=== PATIENT | male | born 1945 | race Caucasian/White ===

== ENCOUNTER → 2016-07-10 | Day surgery (SDC) | payer OTHER ==
[2016-07-02 08:49] VITALS: Ht 172.7 cm; Wt 86.4 kg
[~2016-07-10] VITALS: Ht 172.7 cm; Wt 86.4 kg
[~2016-07-10] MED LIST: ACET-1256 PO; ASPEC81 PO; ATOR-22 PO; ATROPINE SULFATE 0.1 MG/ML 5ML SYR IV PRN; BYS10 PO; CHOL1000 PO; CLC100 PO; COEN100C7 PO; CYAN10005 PO; DABI150C PO; DIPH25CA37 PO; EpHEDrine SULFATE INJ 50 MG/ML AMP IV PRN; EpHEDrine SULFATE INJ 50 MG/ML AMP ONE; FENTANYL CITRATE INJ 50 MCG/1 ML 2 ML VIAL ONE; FRS/40 PO; LIDOCAINE HCL 2% 2 ML VIAL (20MG/ML) ONE; MAGN1TAB15 PO; METF500T PO; MIDAZOLAM HCL 1 MG/ML 2ML VIAL ONE; MOME50SP5; MULT-506 PO; NTRGSL/4 UT; NXM/40 PO; OMEG10007 PO; ONDANSETRON INJ 2 MG/ML 2 ML VIAL ONE; POTA-335 PO; PROPOFOL IV EMULSION 10 MG/ML 20 ML VIAL IV ONE; SODIUM CHLORIDE 0.9% 500ML 500 ML IV ONE; SODIUM CHLORIDE 0.9% INJ 10 ML VIAL ONE; TELM80TA4 PO
--- NOTE | 2016-07-10 08:55 | Endo History and Physical ---
History & Physical Date of Service: Jul 10, 2016. Chief Complaint: rectal bleeding Referring Physician: Dr. Luis Felipe Crowley History of Present Illness 71 yo CM who presents for Colonoscopy secondary to rectal bleeding. Past Surgical History Hx Cardiac Surgery: Yes (HEART CATH X 2 (TOTAL 3 STENTS)) Hx Internal Defibrillator: No Hx Pacemaker: No Hx Abdominal Surgery: Yes (RT/LEFT INGUINAL HERNIA ) Hx of Implantable Prosthesis: No Hx Post-Op Nausea and Vomiting: No Hx Cancer Surgery: No Hx Thoracic Surgery: No Hx Orthopedic: Yes (RT KATY) Hx Urinary Tract Surgery: No Family History None Social History Smoking Status: Former Smoker Hx Substance Use: No Hx Alcohol Use: No Allergies Coded Allergies: Iodinated Contrast Media (Verified Allergy, Unknown, RASH, 07/02/16) Simvastatin (Verified Allergy, Unknown, rash, 07/02/16) Spironolactone (Verified Allergy, Unknown, RASH, 07/02/16) Niacin (Verified Adverse Reaction, Unknown, red flush, 07/02/16) Current Medications Reported Home Medications Medications Dose Route/Sig Max Daily Dose Days Date Category Slow Magnesium Chloride/ 70-117 mg (Magnesium Chloride-Calcium Car) 1 Tab Tab 1 Tab PO QAM 07/02/16 Reported Coq10 (Coenzyme Q10 (Ubidecarenone)) 100 Mg Cap 1 Cap PO QAM 07/02/16 Reported Pradaxa (Dabigatran Etexilate Mesylate) 150 Mg Cap 150 Mg PO BID 05/27/13 Reported Benadryl (Diphenhydramine Hcl) 25 Mg Cap 50 Mg PO BID 10/06/12 Reported Glucophage (Metformin Hcl) 500 Mg Tab 500 Mg PO BID 09/29/12 Reported Vitamin D3 (Cholecalciferol) 1,000 Unit Tab 1 Tab PO QAM 09/29/12 Reported Tylenol (Acetaminophen) 500 Mg Tab 500 Mg PO PRN 09/29/12 Reported Micro-K Ext Rel (Potassium Chloride) 20 Meq Cap 20 Meq PO BID 09/15/10 Reported Lasix (Furosemide) 40 Mg Tab 40 Mg PO QAM 09/15/10 Reported Multivitamin (Multivitamins) Tab 1 Tab PO QAM 09/15/10 Reported Nasonex (Mometasone Furoate) [place] 2 Sprays NA QAM 09/15/10 Reported Lipitor (Atorvastatin Calcium) 20 Mg Tab 20 Mg PO 3XWK 09/15/10 Reported Nitrostat (Nitroglycerin) 0.4 Mg Tab 0.4 Mg UT PRN 09/15/10 Reported Colace * (Docusate Sodium) 100 Mg Cap 100 Mg PO BID 09/15/10 Reported [place]-3 (Fish Oil) 1 Ea Cap 1 Cap PO BID 09/15/10 Reported Vitamin B-12 (Cyanocobalamin) 1,000 Mcg Tab 1,000 Mcg PO QAM 09/15/10 Reported Nexium (Esomeprazole Magnesium) 40 Mg Capcr 40 Mg PO QAM 09/15/10 Reported Micardis Hct 80MG/12.5MG (Telmisartan/Hydrochlorothiazide) Tab 1 Tab PO QAM 09/15/10 Reported Bystolic * (Nebivolol) 10 Mg Tab 10 Mg PO QAM 09/15/10 Reported Ecotrin Or Generic * (Aspirin) 81 Mg Ectab 81 Mg PO QAM 09/15/10 Reported Vital Signs Weight (Kilograms): 86.36 Height (Feet): 5 Height (Inches): 8 Date Time Temp Pulse Resp B/P Pulse Ox O2 Delivery O2 Flow Rate FiO2 07/10/16 08:16 37.1 64 20 118/52 98 Room Air Physical Exam General Appearance: WD/WN, no apparent distress Respiratory/Chest: Auscultation: breath sounds normal Cardiovascular: Heart Auscultation: RRR Abdomen: Bowel Sounds: normal Inspection & Palpation: soft, non-distended, no tenderness, guarding & rebound Assessment and Plan Assessment: 71 yo CM who presents for Colonoscopy secondary to rectal bleeding. Plan: Proceed with colonoscopy.
--- NOTE | 2016-07-10 09:15 | Discharge Instructions ---
Endoscopy Patient Instructions Date / Procedure(s) Performed Jul 10, 2016. Colonoscopy Allergy Information Coded Allergies: Iodinated Contrast Media (Verified Allergy, Unknown, RASH, 07/02/16) Simvastatin (Verified Allergy, Unknown, rash, 07/02/16) Spironolactone (Verified Allergy, Unknown, RASH, 07/02/16) Niacin (Verified Adverse Reaction, Unknown, red flush, 07/02/16) Discharge Date / Findings Jul 10, 2016. Colon lipoma Diverticulosis Internal hemorrhoids Medication Instructions Stopped Medication(s): stopped Metformin on 07/08,took ASA and Pradaxa 07/09 OK to resume all medications today as prescribed. Reported Home Medications Medications Dose Route/Sig Max Daily Dose Days Date Category Slow Magnesium Chloride/ 70-117 mg (Magnesium Chloride-Calcium Car) 1 Tab Tab 1 Tab PO QAM 07/02/16 Reported Coq10 (Coenzyme Q10 (Ubidecarenone)) 100 Mg Cap 1 Cap PO QAM 07/02/16 Reported Pradaxa (Dabigatran Etexilate Mesylate) 150 Mg Cap 150 Mg PO BID 05/27/13 Reported Benadryl (Diphenhydramine Hcl) 25 Mg Cap 50 Mg PO BID 10/06/12 Reported Glucophage (Metformin Hcl) 500 Mg Tab 500 Mg PO BID 09/29/12 Reported Vitamin D3 (Cholecalciferol) 1,000 Unit Tab 1 Tab PO QAM 09/29/12 Reported Tylenol (Acetaminophen) 500 Mg Tab 500 Mg PO PRN 09/29/12 Reported Micro-K Ext Rel (Potassium Chloride) 20 Meq Cap 20 Meq PO BID 09/15/10 Reported Lasix (Furosemide) 40 Mg Tab 40 Mg PO QAM 09/15/10 Reported Multivitamin (Multivitamins) Tab 1 Tab PO QAM 09/15/10 Reported Nasonex (Mometasone Furoate) [place] 2 Sprays NA QAM 09/15/10 Reported Lipitor (Atorvastatin Calcium) 20 Mg Tab 20 Mg PO 3XWK 09/15/10 Reported Nitrostat (Nitroglycerin) 0.4 Mg Tab 0.4 Mg UT PRN 09/15/10 Reported Colace * (Docusate Sodium) 100 Mg Cap 100 Mg PO BID 09/15/10 Reported [place]-3 (Fish Oil) 1 Ea Cap 1 Cap PO BID 09/15/10 Reported Vitamin B-12 (Cyanocobalamin) 1,000 Mcg Tab 1,000 Mcg PO QAM 09/15/10 Reported Nexium (Esomeprazole Magnesium) 40 Mg Capcr 40 Mg PO QAM 09/15/10 Reported Micardis Hct 80MG/12.5MG (Telmisartan/Hydrochlorothiazide) Tab 1 Tab PO QAM 09/15/10 Reported Bystolic * (Nebivolol) 10 Mg Tab 10 Mg PO QAM 09/15/10 Reported Ecotrin Or Generic * (Aspirin) 81 Mg Ectab 81 Mg PO QAM 09/15/10 Reported Provider Instructions Activity Restrictions - No exercising or heavy lifting for 24 hours. - Do not drink alcohol the day of the procedure. - Do not drive a car or operate machinery until the day after the procedure. - Do not make any important decisions or sign important papers in 24 hours after the procedure. Following Day: - Return to full activity which may include returning to work/school. Diet Start your diet with liquids and light foods (jello, soup, juice, toast). Then eat your usual diet if not nauseated. Treatment For Common After Affects For mild abdominal pain, bloating, or excessive gas: - Rest - Eat lightly - Lie on right side Follow-Up Information Follow-up with Dr. Luis Felipe Crowley as scheduled Anesthesia Information What You Should Know You have had a procedure that required some medicine to reduce anxiety and discomfort. This treatment is called moderate sedation. After receiving the treatment, you may be sleepy, but you will be able to breathe on your own. The effects of the treatment may last for several hours. Follow these instructions along with Activity/Diet recommendations noted above: * Do NOT do anything where dizziness or clumsiness would be dangerous. * Rest quietly at home today, then you can be up and about tomorrow. * Have a responsible person stay with you the rest of today. * You may have had an I.V. today. If so, you may take the dressing off later today. Recommendations Call your doctor if: * Trouble breathing * Continuous vomiting for more than 24 hours * Temperature above 101 degrees * Severe abdominal pain or bloating * Pain not relieved by pain medicine ordered * There is increased drainage or redness from any incision * A large amount of rectal bleeding greater than 2-3 tablespoons. (If you had a polyp/s removed or have hemorrhoids, a small amount of blood - from the rectum is to be expected.) * You have any unanswered questions or concerns. IN THE EVENT OF A SERIOUS EMERGENCY, GO TO THE NEAREST EMERGENCY ROOM Your discharge instructions were prepared by provider Chivo Vaughn. Patient Instructions Signature Page Rigo Wells Patient (or Guardian) Signature/Date: I have read and understand the instructions given to me by my caregivers. Caregiver/RN/Doctor Signature/Date: The above-named patient and/or guardian has received patient instructions on this date. + Original Patient Signature Page (only) stays with chart. Please make copy for patient.
--- NOTE | 2016-07-10 09:22 | GI REPORT ---
Procedure Date: 07/10/2016 8:15 AM Procedure: Colonoscopy Indications: Rectal bleeding Medicines: Monitored Anesthesia Care Complications: No immediate complications. Estimated Blood Loss: Estimated blood loss: none. Procedure: Pre-Anesthesia Assessment: - Prior to the procedure, a History and Physical was performed, and patient medications and allergies were reviewed. The patient's tolerance of previous anesthesia was also reviewed. The risks and benefits of the procedure and the sedation options and risks were discussed with the patient. All questions were answered, and informed consent was obtained. Prior Anticoagulants: The patient last took aspirin 1 day and Pradaxa (dabigatran) 1 day prior to the procedure. ASA Grade Assessment: IV - A patient with severe systemic disease that is a constant threat to life. After reviewing the risks and benefits, the patient was deemed in satisfactory condition to undergo the procedure. After I obtained informed consent, the scope was passed under direct vision. Throughout the procedure, the patient's blood pressure, pulse, and oxygen saturations were monitored continuously. The scope was introduced through the anus and advanced to the cecum, identified by appendiceal orifice and ileocecal valve. The colonoscopy was performed without difficulty. The patient tolerated the procedure well. The quality of the bowel preparation was good. The ileocecal valve, appendiceal orifice, and rectum were photographed. Findings: There was a small lipoma, 15 mm in diameter, in the transverse colon. Multiple small-mouthed diverticula were found in the sigmoid colon. Non-bleeding internal hemorrhoids were found during retroflexion. The hemorrhoids were small. Impression: - Small lipoma in the transverse colon. - Diverticulosis in the sigmoid colon. - Non-bleeding internal hemorrhoids. - No specimens collected. Recommendation: - Resume previous diet. - Continue present medications. - No repeat colonoscopy due to age and the absence of advanced adenomas. - Return to primary care physician as previously scheduled. Chivo Vaughn DO 07/10/2016 9:21:55 AM This report has been signed electronically. Note Initiated On: 07/10/2016 8:15 AM
--- NOTE | 2016-07-10 09:26 | Anesthesiology Progress Note ---
Anesthesia Post Op Note Date & Time Jul 10, 2016 at 09:25 Vital Signs Pain Intensity: 0 Vital Signs Past 12 Hours Date Time Temp Pulse Resp B/P Pulse Ox O2 Delivery O2 Flow Rate FiO2 07/10/16 08:16 37.1 64 20 118/52 98 Room Air Notes Mental Status: alert / awake / arousable, participated in evaluation Pt Amnestic to Procedure: Yes Nausea / Vomiting: adequately controlled Pain: adequately controlled Airway Patency, RR, SpO2: stable & adequate BP & HR: stable & adequate Hydration State: stable & adequate Anesthetic Complications: no major complications apparent
[2016-07-10 09:50] VITALS: BP 103/49; PULSE 62; O2SAT 97
== END | disposition home or self-care (01) ==
LOC: C.GI 07:49
PROVIDERS: ATTEND Internal Medicine
DX: K62.5 Hemorrhage of anus and rectum (principal); D17.79 Benign lipomatous neoplasm of other sites; K64.8 Other hemorrhoids; K57.30 Diverticulosis of large intestine without perforation or abscess without bleeding; I25.10 Atherosclerotic heart disease of native coronary artery without angina pectoris; I25.2 Old myocardial infarction; I10 Essential (primary) hypertension; E11.9 Type 2 diabetes mellitus without complications; Z98.890 Other specified postprocedural states; Z87.891 Personal history of nicotine dependence; Z96.641 Presence of right artificial hip joint

== ENCOUNTER → 2016-08-30 | Outpatient (CLI) | payer OTHER ==
[~2016-08-30] MED LIST changes: -ATROPINE SULFATE 0.1 MG/ML 5ML SYR IV PRN; -EpHEDrine SULFATE INJ 50 MG/ML AMP IV PRN; -EpHEDrine SULFATE INJ 50 MG/ML AMP ONE; -FENTANYL CITRATE INJ 50 MCG/1 ML 2 ML VIAL ONE; -LIDOCAINE HCL 2% 2 ML VIAL (20MG/ML) ONE; -MIDAZOLAM HCL 1 MG/ML 2ML VIAL ONE; -ONDANSETRON INJ 2 MG/ML 2 ML VIAL ONE; -PROPOFOL IV EMULSION 10 MG/ML 20 ML VIAL IV ONE; -SODIUM CHLORIDE 0.9% 500ML 500 ML IV ONE; -SODIUM CHLORIDE 0.9% INJ 10 ML VIAL ONE
[2016-08-30 09:57] LABS: HEMATOCRIT 42.6 % (42-52); MEAN CELL VOLUME 85.5 fL (80-100); MEAN CORPUSCULAR HEMOGLOBIN 28.7 pg (25-34); MEAN CORPUSCULAR HGB CONC 33.6 g/dl (32-36); MEAN PLATELET VOLUME 11.1 fL (7.4-10.4); PLATELET COUNT 273 K/uL (130-400); RED BLOOD COUNT 4.98 M/uL (4.7-6.1); WHITE BLOOD COUNT 6.91 K/uL (4.8-10.8)
[2016-08-30 10:20] LABS: ALB/GLOB RATIO 1.1 (0.9-2); ALKALINE PHOSPHATASE 65 U/L (45-117); ALT/SGPT 26 U/L (12-78); AST/SGOT 18 U/L (15-37); BLOOD UREA NITROGEN 19 mg/dl (7-18); CARBON DIOXIDE 31 mmol/L (21-32); CHLORIDE 103 mmol/L (98-107); CHOLESTEROL 90 mg/dl (0-200); CHOLESTEROL/HDL RATIO 2.9; GLUCOSE 139 mg/dl (70-99); HDL CHOLESTEROL 31 mg/dl; LDL CHOLESTEROL CALCULATED 48 mg/dl; POTASSIUM 4.1 mmol/L (3.5-5.1); SODIUM 139 mmol/L (136-145); TRIGLYCERIDES 57 mg/dl (0-150); VERY LOW DENSITY LIPOPROT CALC 11 mg/dl
[2016-08-30 10:24] LABS: ESTIMATED AVERAGE GLUCOSE 146 mg/dl; HA1C FLAG Normal (Normal)
--- NOTE | 2016-09-03 08:36 | CODING QUERY MEDICAL NECESSITY ---
SUPPORTING DIAGNOSIS NEEDED Dr. Crowley, A supporting diagnosis is required for the test/procedure performed on this patient in order for us to be reimbursed by the patient's insurance. Please provide a supporting diagnosis for the following test/procedure listed below next to the test name along with your signature. *If there is no additional diagnosis for this patient that would support the following test/procedure please document that below next to the test/procedure. Test(s)/Procedure(s) that require a supporting diagnosis: * [id number] PSA DIAGNOSIS: DATE OF SERVICE: 08/30/16 Provider Signature: Date: Thank you Francois Curiel [facility] Information Management Once completed, please kindly fax back to [phone] For questions please call [phone]
== END | disposition home or self-care (01) ==
LOC: C.LAB 07:53
PROVIDERS: ATTEND Family Medicine
DX: E11.9 Type 2 diabetes mellitus without complications (principal); N40.0 Benign prostatic hyperplasia without lower urinary tract symptoms

== ENCOUNTER → 2017-02-26 | Outpatient (CLI) | payer OTHER ==
[2017-02-26 09:37] LABS: BASO % 0.4 %; BASO ABS # 0.03 K/uL (0-0.2); COMPLETE YES; EOS % 4.9 %; HEMATOCRIT 41.1 % (42-52); IG% 0.3 %; MEAN CELL VOLUME 86.7 fL (80-100); MEAN CORPUSCULAR HEMOGLOBIN 29.3 pg (25-34); MEAN CORPUSCULAR HGB CONC 33.8 g/dl (32-36); MEAN PLATELET VOLUME 11.1 fL (7.4-10.4); MONO % 9.6 %; NEUT % 66.8 %; PLATELET COUNT 269 K/uL (130-400); RED BLOOD COUNT 4.74 M/uL (4.7-6.1); WHITE BLOOD COUNT 6.68 K/uL (4.8-10.8)
[2017-02-26 10:00] LABS: ALT/SGPT 19 U/L (12-78); AST/SGOT 16 U/L (15-37); BLOOD UREA NITROGEN 20 mg/dl (7-18); BUN/CREATININE RATIO 16.8 (10-20); CALCIUM 8.9 mg/dl (8.5-10.1); CARBON DIOXIDE 30 mmol/L (21-32); CHLORIDE 104 mmol/L (98-107); CHOLESTEROL 96 mg/dl (0-200); CHOLESTEROL/HDL RATIO 2.9; GLUCOSE 126 mg/dl (70-99); HDL CHOLESTEROL 33 mg/dl; LDL CHOLESTEROL CALCULATED 52 mg/dl; PHOSPHORUS 2.8 mg/dl (2.5-4.9); POTASSIUM 4.1 mmol/L (3.5-5.1); SODIUM 139 mmol/L (136-145); TRIGLYCERIDES 57 mg/dl (0-150); VERY LOW DENSITY LIPOPROT CALC 11 mg/dl
[2017-02-26 10:06] LABS: ESTIMATED AVERAGE GLUCOSE 154 mg/dl; HA1C FLAG Normal (Normal)
[2017-02-26 10:07] LABS: ALB/GLOB RATIO 1.1 (0.9-2); ALKALINE PHOSPHATASE 73 U/L (45-117); URIC ACID 7.5 mg/dl (2.6-7.2)
[2017-02-27 11:17] LABS: C-REACTIVE PROT HIGHSEN 2.1 MG/L
== END | disposition home or self-care (01) ==
LOC: C.LAB 08:00
PROVIDERS: ATTEND Family Medicine
DX: R73.09 Other abnormal glucose (principal); E55.9 Vitamin D deficiency, unspecified; D51.9 Vitamin B12 deficiency anemia, unspecified

== ENCOUNTER → 2017-08-27 | Outpatient (CLI) | payer OTHER ==
[~2017-08-27] MED LIST changes: -TELM80TA4 PO; +TELM80TA6 PO
[2017-08-27 09:34] LABS: BASO % 0.5 %; BASO ABS # 0.03 K/uL (0-0.2); EOS % 2.8 %; EOS ABS # 0.18 K/uL (0-0.5); HEMATOCRIT 39.8 % (42-52); HEMOGLOBIN 13.2 g/dL (14.0-18.0); IG# 0.01 K/uL (0.00-0.02); LYMPH ABS # 1.03 K/uL (1.2-3.4); MEAN CELL VOLUME 84.7 fL (80-100); MEAN CORPUSCULAR HEMOGLOBIN 28.1 pg (25-34); MEAN CORPUSCULAR HGB CONC 33.2 g/dl (32-36); MEAN PLATELET VOLUME 10.9 fL (7.4-10.4); MONO % 10.1 %; MONO ABS # 0.65 K/uL (0.11-0.59); NEUT % 70.4 %; NEUT ABS # 4.55 K/uL (1.4-6.5); PLATELET COUNT 275 K/uL (130-400); RED CELL DISTRIBUTION WIDTH CV 15.6 % (11.5-14.5); RED CELL DISTRIBUTION WIDTH SD 48.5 fL (36.4-46.3); WHITE BLOOD COUNT 6.45 K/uL (4.8-10.8)
[2017-08-27 09:55] LABS: HEMOGLOBIN A1C 7.1 % (4.5-5.6)
[2017-08-27 10:08] LABS: ALBUMIN 3.3 gm/dl (3.4-5.0); ALT/SGPT 21 U/L (12-78); AST/SGOT 16 U/L (15-37); BLOOD UREA NITROGEN 17 mg/dl (7-18); CALCIUM 9.4 mg/dl (8.5-10.1); CARBON DIOXIDE 30 mmol/L (21-32); CHOLESTEROL 94 mg/dl (0-200); CREATININE 1.01 mg/dl (0.60-1.40); GLUCOSE 140 mg/dl (70-99); LDL CHOLESTEROL CALCULATED 51 mg/dl; POTASSIUM 3.9 mmol/L (3.5-5.1); SODIUM 138 mmol/L (136-145); TOTAL PROTEIN 6.9 gm/dl (6.4-8.2)
[2017-08-27 10:17] LABS: ALKALINE PHOSPHATASE 67 U/L (45-117); TRANSFERRIN 269 mg/dl (200-360); URIC ACID 6.6 mg/dl (2.6-7.2)
== END | disposition home or self-care (01) ==
LOC: C.LAB 08:19
PROVIDERS: ATTEND Family Medicine
DX: E88.81 Metabolic syndrome and other insulin resistance (principal); E55.9 Vitamin D deficiency, unspecified; D51.9 Vitamin B12 deficiency anemia, unspecified; E78.9 Disorder of lipoprotein metabolism, unspecified; R53.83 Other fatigue

== ENCOUNTER → 2017-09-10 | Outpatient (CLI) | payer OTHER ==
--- NOTE | 2017-09-10 08:38 | DIAGNOSTIC IMAGING REPORT ---
ULTRASOUND EXAM AAA SCREEN CLINICAL HISTORY: 72 years-old Male presenting with CAD, screening for aortic aneurysm. TECHNIQUE: Real-time grayscale and color and spectral Doppler ultrasound imaging of the abdominal aorta and iliac arteries was performed. COMPARISON: CT from 08/18/2010. FINDINGS: Proximal aorta: Patent. Transverse dimension 1.9 x 2.2 cm. Mid aorta: Patent. Transverse dimension 2.2 x 2.1 cm. Distal aorta: Patent. Transverse dimension 1.7 x 1.9 cm. Right iliac artery: Patent. Transverse dimension 1.4 x 1.2 cm. Left iliac artery: Patent. Transverse dimension 1.3 x 1.3 cm. IMPRESSION: 1. No evidence of abdominal aortic aneurysm. Electronically signed by: Casa Collier M.D. 09/10/2017 8:37 AM Dictated Date/Time: 09/10/2017 8:35 AM
== END | disposition home or self-care (01) ==
LOC: C.ULTR 08:00
PROVIDERS: ATTEND Family Medicine
DX: I25.10 Atherosclerotic heart disease of native coronary artery without angina pectoris (principal)

== ENCOUNTER 2020-06-06 00:10 | Observation (INO) ==
--- NOTE | 2020-06-06 00:36 | Emergency Department Note ---
Impression & Plan Epigastric pain, Acute electrocardiogram changes ED Provider Note NAME: SHANTAL MCCARTHY JR AGE: 75 SEX: M ARRIVES VIA: Ambulance INFORMANT: Patient ED PROVIDER(S): Yovana Yousif DO CHIEF COMPLAINT: Epigastric pain PLAN: [facility] MEDICAL DECISION MAKING: This is a 75-year-old male patient who has had multiple episodes of epigastric discomfort radiating up into his chest today that were associated with significant nausea, dry heaving, diaphoresis and pallor. Upon EMS arrival, the patient had an EKG done which showed ST segment depression in the anterior and lateral leads. These EKG changes resolved when the patient was chest pain-free. The patient has a history of previous cardiac stents in the LAD and RCA. These were performed in [place]. The patient had a sudden onset of discomfort in his epigastrium that radiated through to his chest. During these episodes, the patient will become pale and diaphoretic. It seems that he would also have episodes of ST segment depression in anterolateral leads. Once his chest discomfort would resolve, the EKG changes would also resolved. I discussed the case with the [facility] talist and they will evaluate for further management. Triage Nursing notes reviewed and agree them. Additional history obtained from EMS Vital Signs: reviewed and unremarkable Differential diagnosis: Aortic dissection, GERD, STEMI, NSTEMI ER treatment provided: Diagnostics interpreted by me: ECG: Atrial fibrillation with PVCs at a rate of 65. There is no obvious signs of ischemia. There is no ST segment elevation or depression. This was compared to prehospital EKGs and the ST segment depression in the anterior leads from the prehospital EKG has resolved. There is evidence of a right bundle branch block but this is unchanged from old EKGs. Cardiac Monitoring: A. fib at a rate of 72 Repeat EKG: Nursing staff noted that the patient's heart rate seem to dip down into the 40s. A repeat EKG was ordered-A. fib with slow ventricular response at a rate of 58 with premature ventricular conducted complexes. There is a right bundle branch block. There is no ST segment changes or signs of other ectopic beats. Laboratory studies: See below Imaging studies: As per my interpretation Portable chest x-ray: Calcified perihilar lymph nodes as seen on previous chest x-rays. HPI: 75/M arrives for evaluation of epigastric pain. The patient describes developing some epigastric discomfort around 5:30 PM after eating. He states it felt like there was a lump in his stomach that would not go away. It seemed like his food would not digest. The discomfort did finally go away but then came back around 9:15 PM was associated with diaphoresis and dry heaves. Again, the symptoms subsided. However, the symptoms returned again and the epigastric pain radiated up into his chest and was associated with nausea and dry heaves again. The patient's was very concerned because the patient was quite pale and diaphoretic and she called EMS. ROS: See above HPI for pertinent positives & negatives. A total of 10 systems reviewed and were otherwise negative. PAST MEDICAL HISTORY:See Below PAST SURGICAL HISTORY:See Below FAMILY HISTORY:See Below SOCIAL HISTORY:See Below HOME MEDICATIONS:See list ALLERGIES:See list VITALS:See Below PHYSICAL EXAMINATION: HEENT: Head - normocephalic and atraumatic Pupils are equal, round, and reactive to light. Extraocular eye muscles are intact, and sclera are anicteric. Nose - moist nasal mucosa without discharge. Mouth - moist buccal mucosa. Oropharynx is nonerythematous and there is no tonsillar exudate or edema noted. Neck: Supple; no JVD, nuchal rigidity, cervical lymphadenopathy, or auscultated bruits. Heart: Irregularly irregular rhythm with a controlled ventricular rate. There is a normal S1 and S2 with no murmurs, clicks, or gallops appreciated. Lungs: Clear to auscultation bilaterally with no wheezes, rales, or rhonchi. Abdomen: Soft, completely nontender, nondistended, with good bowel sounds. There are no palpable pulsatile masses or hepatosplenomegaly. There is no guarding, rigidity, or rebound noted. Extremities: No evidence of cyanosis, clubbing, or edema. There are easily palpable peripheral pulses. Skin: warm and dry with good turgor and no rashes. ED COURSE: Times/Reassessments: 0015: The patient was evaluated in room A2. An order was placed for continuous cardiac monitoring. The patient was in A. fib with a slow ventricular response at a rate of 52. The patient had a portable chest x-ray performed along with a twelve-lead EKG. Laboratory studies were drawn as above. 0105: I reevaluated the patient at this time and he remains comfortable. I reviewed the results of the labs and x-ray with the patient. I discussed the case with the [facility] hospitalist and they will evaluate the patient for further management and inpatient care. Yovana Yousif DO Past Med/Surg History Medical History (Updated 06/06/20 @ 05:55 by Yovana Yousif DO) Acid reflux Diabetes High cholesterol WELL CONTROLLED WITH MEDICATION History of kidney stones History of IA (myocardial infarction) X2 - 2001 AND 2004 HTN (hypertension) WELL CONTROLLED WITH MEDICATION Surgical History History of cardiac cath X2 History of colonoscopy History of heart artery stent TOTAL OF 3 - FIRST IA X 2, SECOND IA X 1 History of hernia repair LEFT X1, RIGHT X1 History of surgery ANAL ABCESS History of total hip replacement RIGHT Family History Other Family history of diabetes mellitus in brother Social History Smoking Status: Never smoker Hx Alcohol Use: No Preferred Language: Algerian Communication Ability: Effective Frame Repairer Required: No Beliefs That Will Affect Care: None Current Living Situation: Spouse Feels Safe at Home: Yes Assistive Devices: Glasses Allergies Allergies Allergy/AdvReac Type Severity Reaction Status Date / Time Iodinated Contrast Media Allergy Unknown RASH Verified 06/06/20 01:23 meloxicam Allergy Unknown interacts Verified 06/06/20 01:23 with glucose readings and Lasix simvastatin Allergy Unknown rash Verified 06/06/20 01:23 spironolactone Allergy Unknown RASH Verified 06/06/20 01:23 niacin AdvReac Unknown red flush Verified 06/06/20 01:23 Home Meds Home Medications Medication Instructions Recorded Confirmed aspirin 81 mg tablet,delayed 81 mg PO DAILY 04/02/19 06/06/20 release atorvastatin 20 mg tablet 20 mg PO 3XWK tab 04/02/19 06/06/20 cholecalciferol (vitamin D3) 25 1,000 units PO DAILY 04/02/19 06/06/20 mcg (1,000 unit) capsule coenzyme Q10 100 mg capsule 100 mg PO DAILY 04/02/19 06/06/20 cyanocobalamin (vitamin B-12) 1,000 mcg PO DAILY 04/02/19 06/06/20 1,000 mcg tablet dabigatran etexilate 150 mg capsule 150 mg PO BID 04/02/19 06/06/20 diphenhydramine HCl 50 mg capsule 50 mg PO BID PRN cap 04/02/19 06/06/20 docusate sodium 100 mg capsule 100 mg PO BID 04/02/19 06/06/20 esomeprazole magnesium 40 mg 40 mg PO QAM cap 04/02/19 06/06/20 capsule,delayed release ferrous sulfate 325 mg (65 mg 325 mg PO DAILY tab 04/02/19 06/06/20 iron) tablet,delayed release furosemide 40 mg tablet 40 mg PO QAM 04/02/19 06/06/20 metformin 500 mg tablet 500 mg PO BID 04/02/19 06/06/20 multivitamin 1 tab PO DAILY 04/02/19 06/06/20 nebivolol 10 mg tablet 10 mg PO QDD 04/02/19 06/06/20 nitroglycerin 0.4 mg sublingual 0.4 mg SL UD PRN 04/02/19 06/06/20 tablet omega 0-noq-grf-fish oil 1,000 mg 1 cap PO BID 04/02/19 06/06/20 (120 mg-180 mg) capsule potassium chloride 20 mEq 20 meq PO BID 04/02/19 06/06/20 tablet,extended release telmisartan 80 1 tab PO QAM 04/02/19 06/06/20 mg-hydrochlorothiazide 12.5 mg tablet acetaminophen 500 mg PO UD PRN 02/12/20 06/06/20 magnesium 70 mg PO DAILY 02/12/20 06/06/20 Results & Data (ED) Vital Signs Vital Signs - 24 hr 06/06/20 00:17 06/06/20 00:18 06/06/20 00:30 Temperature 36.7 C Temperature Source Oral Pulse Rate 72 73 59 L Pulse Rate from SpO2 Sensor 68 72 68 Pulse Rhythm Irregular Pulse Strength Normal Respiratory Rate 21 21 13 Respiratory Effort / Characteristics Non-Labored Respiratory Pattern Regular Blood Pressure 124/62 124/62 114/59 L Blood Pressure Mean 90 82 85 Blood Pressure Position Sitting Pulse Oximetry 96 96 94 Oxygen Delivery Method Room Air Oxygen Flow Rate Sepsis Recent Fever Within 48 Hours No Sepsis New/Unexplained Change in Mental Status N/A Sepsis Action Taken by Nursing No Action Required Oxygen Flow Rate - Titration Pulse Oximetry Post Tiitration 06/06/20 00:31 06/06/20 00:37 06/06/20 00:57 Temperature Temperature Source Pulse Rate 59 L 54 L Pulse Rate from SpO2 Sensor 65 Pulse Rhythm Pulse Strength Respiratory Rate 12 20 Respiratory Effort / Characteristics Respiratory Pattern Blood Pressure Blood Pressure Mean Blood Pressure Position Pulse Oximetry 94 94 96 Oxygen Delivery Method Room Air Nasal Cannula Oxygen Flow Rate 2 Sepsis Recent Fever Within 48 Hours Sepsis New/Unexplained Change in Mental Status Sepsis Action Taken by Nursing Oxygen Flow Rate - Titration 2 Pulse Oximetry Post Tiitration 96 06/06/20 01:00 06/06/20 01:01 06/06/20 01:30 Temperature Temperature Source Pulse Rate 58 L 56 L 55 L Pulse Rate from SpO2 Sensor 57 L 57 L 55 L Pulse Rhythm Pulse Strength Respiratory Rate 18 19 18 Respiratory Effort / Characteristics Respiratory Pattern Blood Pressure 107/49 L 116/58 L Blood Pressure Mean 77 76 Blood Pressure Position Pulse Oximetry 98 98 98 Oxygen Delivery Method Nasal Cannula Oxygen Flow Rate 2 Sepsis Recent Fever Within 48 Hours Sepsis New/Unexplained Change in Mental Status Sepsis Action Taken by Nursing Oxygen Flow Rate - Titration Pulse Oximetry Post Tiitration 06/06/20 01:31 06/06/20 02:30 06/06/20 04:00 Temperature Temperature Source Pulse Rate 56 L 49 L 56 L Pulse Rate from SpO2 Sensor 54 L 52 L Pulse Rhythm Pulse Strength Respiratory Rate 17 17 16 Respiratory Effort / Characteristics Respiratory Pattern Blood Pressure 104/50 L 120/69 Blood Pressure Mean 73 82 Blood Pressure Position Pulse Oximetry 98 98 98 Oxygen Delivery Method Nasal Cannula Oxygen Flow Rate 2 Sepsis Recent Fever Within 48 Hours Sepsis New/Unexplained Change in Mental Status Sepsis Action Taken by Nursing Oxygen Flow Rate - Titration Pulse Oximetry Post Tiitration 06/06/20 04:01 06/06/20 04:30 06/06/20 04:31 Temperature Temperature Source Pulse Rate 56 L 53 L 59 L Pulse Rate from SpO2 Sensor 56 L 63 Pulse Rhythm Pulse Strength Respiratory Rate 16 14 16 Respiratory Effort / Characteristics Respiratory Pattern Blood Pressure 104/69 Blood Pressure Mean 79 Blood Pressure Position Pulse Oximetry 98 98 Oxygen Delivery Method Oxygen Flow Rate Sepsis Recent Fever Within 48 Hours Sepsis New/Unexplained Change in Mental Status Sepsis Action Taken by Nursing Oxygen Flow Rate - Titration Pulse Oximetry Post Tiitration Laboratory Data Result diagrams: 06/06/20 00:10 06/06/20 00:10 Lab Results 06/06/20 06/06/20 06/06/20 Range/Units 00:10 00:10 00:10 WBC 10.03 (4.8-10.8) K/uL RBC 4.89 (4.7-6.1) M/uL Hgb 14.9 (14.0-18.0) g/dL Hct 44.3 (42-52) % MCV 90.6 (80-100) fL MCH 30.5 (25-34) pg MCHC 33.6 (32-36) g/dL RDW Std Deviation 45.1 (36.4-46.3) fL RDW Coeff of Veronica 13.8 (11.5-14.5) % Plt Count 315 (130-400) K/uL MPV 11.4 H (7.4-10.4) fL Immature Gran % (Auto) 0.3 % Neut % (Auto) 76.3 % Lymph % (Auto) 15.0 % Webb % (Auto) 6.5 % Eos % (Auto) 1.7 % Baso % (Auto) 0.2 % Neut # (Auto) 7.66 H (1.4-6.5) K/uL Lymph # (Auto) 1.50 (1.2-3.4) K/uL Webb # (Auto) 0.65 H (0.11-0.59) K/uL Eos # (Auto) 0.17 (0-0.5) K/uL Baso # (Auto) 0.02 (0-0.2) K/uL Immature Gran # (Auto) 0.03 H (0.00-0.02) K/uL PT 13.0 H (9.0-12.0) Seconds INR 1.2 H (0.9-1.1) APTT 47.1 H* (21.0-31.0) Seconds PTT Ratio 1.7 Sodium 139 (136-145) mmol/L Potassium 3.9 (3.5-5.1) mmol/L Chloride 103 (98-107) mmol/L Carbon Dioxide 29 (21-32) mmol/L Anion Gap 7.0 (3-11) BUN 17 (7-18) mg/dl Creatinine 1.19 (0.6-1.4) mg/dl Est Cr Clr Drug Dosing 58.0 ml/min Est GFR ( Amer) 69.3 Est GFR (Non-Af Amer) 59.8 BUN/Creatinine Ratio 14.5 (10-20) Glucose 207 H (70-99) mg/dl Calcium 9.7 (8.5-10.1) mg/dl Total Bilirubin 0.6 (0.2-1) mg/dl AST 24 (15-37) U/L ALT 20 (12-78) U/L Alkaline Phosphatase 89 (45-117) U/L Troponin I 0.024 (0-0.045) ng/ml Total Protein 7.8 (6.4-8.2) gm/dl Albumin 3.7 (3.4-5.0) gm/dl Globulin 4.1 H (2.5-4.0) gm/dl Albumin/Globulin Ratio 0.9 (0.9-2) Lipase 154 (73-393) U/L SARS-CoV-2 Ag (Rapid) (Negative) 06/06/20 Range/Units Unknown WBC (4.8-10.8) K/uL RBC (4.7-6.1) M/uL Hgb (14.0-18.0) g/dL Hct (42-52) % MCV (80-100) fL MCH (25-34) pg MCHC (32-36) g/dL RDW Std Deviation (36.4-46.3) fL RDW Coeff of Veronica (11.5-14.5) % Plt Count (130-400) K/uL MPV (7.4-10.4) fL Immature Gran % (Auto) % Neut % (Auto) % Lymph % (Auto) % Webb % (Auto) % Eos % (Auto) % Baso % (Auto) % Neut # (Auto) (1.4-6.5) K/uL Lymph # (Auto) (1.2-3.4) K/uL Webb # (Auto) (0.11-0.59) K/uL Eos # (Auto) (0-0.5) K/uL Baso # (Auto) (0-0.2) K/uL Immature Gran # (Auto) (0.00-0.02) K/uL PT (9.0-12.0) Seconds INR (0.9-1.1) APTT (21.0-31.0) Seconds PTT Ratio Sodium (136-145) mmol/L Potassium (3.5-5.1) mmol/L Chloride (98-107) mmol/L Carbon Dioxide (21-32) mmol/L Anion Gap (3-11) BUN (7-18) mg/dl Creatinine (0.6-1.4) mg/dl Est Cr Clr Drug Dosing ml/min Est GFR ( Amer) Est GFR (Non-Af Amer) BUN/Creatinine Ratio (10-20) Glucose (70-99) mg/dl Calcium (8.5-10.1) mg/dl Total Bilirubin (0.2-1) mg/dl AST (15-37) U/L ALT (12-78) U/L Alkaline Phosphatase (45-117) U/L Troponin I (0-0.045) ng/ml Total Protein (6.4-8.2) gm/dl Albumin (3.4-5.0) gm/dl Globulin (2.5-4.0) gm/dl Albumin/Globulin Ratio (0.9-2) Lipase (73-393) U/L SARS-CoV-2 Ag (Rapid) Negative (Negative) Discharge Plan Visit Data Chief Complaint: Chest Pain Stated Complaint: EPIGASTRIC PAIN ED Provider: Yovana Yousfi Discharge Problem: Epigastric pain, Acute electrocardiogram changes Forms Stand Alone Forms: [facility] Prescriptions Prescriptions: No Action aspirin 81 mg tablet,delayed release (DR/EC) 81 mg PO DAILY RF: 0 Bystolic 10 mg tablet 10 mg PO QDD RF: 0 coenzyme Q10 [Co Q-10] 100 mg capsule 100 mg PO DAILY RF: 0 docusate sodium [Colace] 100 mg capsule 100 mg PO BID RF: 0 diphenhydramine HCl 50 mg capsule 50 mg PO BID PRN (Reason: SEASONAL ALLERGIES) RF: 0 omega 8-[id number]-bkd-fish oil [Fish Oil] 1,000 mg (120 mg-180 mg) capsule 1 cap PO BID RF: 0 ferrous sulfate 325 mg (65 mg iron) tablet,delayed release (DR/EC) 325 mg PO DAILY RF: 0 furosemide [Lasix] 40 mg tablet 40 mg PO QAM RF: 0 atorvastatin [Lipitor] 20 mg tablet 20 mg PO 3XWK RF: 0 metformin 500 mg tablet 500 mg PO BID RF: 0 telmisartan-hydrochlorothiazid [Micardis HCT] 80-12.5 mg tablet 1 tab PO QAM RF: 0 multivitamin tablet 1 tab PO DAILY RF: 0 esomeprazole magnesium [Nexium] 40 mg capsule,delayed release(DR/EC) 40 mg PO QAM RF: 0 nitroglycerin 0.4 mg tablet, sublingual 0.4 mg SL UD PRN (Reason: Chest Pain) RF: 0 potassium chloride 20 mEq tablet extended release 20 meq PO BID RF: 0 Pradaxa 150 mg capsule 150 mg PO BID RF: 0 cyanocobalamin (vitamin B-12) [Vitamin B-12] 1,000 mcg tablet 1,000 mcg PO DAILY RF: 0 cholecalciferol (vitamin D3) 1,000 unit capsule 1,000 units PO DAILY RF: 0 magnesium 30 mg Tablet 70 mg PO DAILY RF: 0 acetaminophen 500 mg Capsule 500 mg PO UD PRN (Reason: ACHES AND PAINS) RF: 0
[2020-06-06 00:38] LABS: Basophils # (auto) 0.02 K/uL (0-0.2); Basophils % (auto) 0.2 %; Eosinophils # (auto) 0.17 K/uL (0-0.5); Eosinophils % (auto) 1.7 %; Hematocrit (blood only) 44.3 % (42-52); Hemoglobin 14.9 g/dL (14.0-18.0); Immature Granulocytes # (auto) 0.03 K/uL (0.00-0.02); Immature Granulocytes % (auto) 0.3 %; Mean Corpuscular Hemoglobin 30.5 pg (25-34); Mean Corpuscular Hgb Conc 33.6 g/dL (32-36); Mean Corpuscular Volume 90.6 fL (80-100); Mean Platelet Volume 11.4 fL (7.4-10.4); Monocytes # (auto) 0.65 K/uL (0.11-0.59); Monocytes % (auto) 6.5 %; Neutrophils # (auto) 7.66 K/uL (1.4-6.5); Neutrophils % (auto) 76.3 %; Platelet Count 315 K/uL (130-400); RDW Coefficient of Variation 13.8 % (11.5-14.5); RDW Standard Deviation 45.1 fL (36.4-46.3); Red Blood Count 4.89 M/uL (4.7-6.1); White Blood Count 10.03 K/uL (4.8-10.8)
[2020-06-06 00:54] LABS: Albumin Level 3.7 gm/dl (3.4-5.0); BUN Creatinine Ratio 14.5 (10-20); Calcium 9.7 mg/dl (8.5-10.1); Est GFR (African American) 69.3; Est GFR (Non-African American) 59.8; Potassium 3.9 mmol/L (3.5-5.1)
[2020-06-06 00:59] LABS: Albumin Globulin Ratio 0.9 (0.9-2); Bilirubin,Total 0.6 mg/dl (0.2-1); Globulin 4.1 gm/dl (2.5-4.0); Total Protein 7.8 gm/dl (6.4-8.2); Troponin I 0.024 ng/ml (0-0.045)
[2020-06-06 01:12] LABS: INR 1.2 (0.9-1.1); Partial Thromboplastin Ratio 1.7
[2020-06-06 01:13] LABS: Partial Thromboplastin Time 47.1 Seconds (21.0-31.0)
--- NOTE | 2020-06-06 02:34 | History & Physical Report ---
Date of Service June 06, 2020 Assessment & Plan (1) Chest pain: 76-year-old male with past medical history coronary disease with 2 MIs in the past stents placed to the LAD and RCA, Permanent Atrial Fibrillation (rate controlled / Pradaxa anticoagulation), Type 2 DM, Hypertensi on, Dyslipidemia, DJD, and an Ischemic Cardiomyopathy with an LVEF of 40% - 45% (Echocardiogram August 2010) presents with concerns of epigastric pain admitted for chest pain rule out. Chest pain Admit to med telemetry EKG: Atrial fibrillation with PVCs at a rate of 65. There is no obvious signs of ischemia. There is no ST segment elevation or depression. This was compared to prehospital EKGs and the ST segment depression in the anterior leads from the prehospital EKG has resolved. There is evidence of a right bundle branch block but this is unchanged from old EKGs from May 27, 2013 Patient currently without any pain, but given EKG changes with [employer] chest pain findings concerning for ACS Troponin admission WNL 0.024. Will trend x2 every 6 hours Morphine and nitroglycerin ordered as needed chest pain N.p.o. for any possible cardiac intervention tomorrow Echo pending. Last echo August 2010: Mild biventricular dilatation. Moderate left atrial dilatation. Mild to moderate left ventricular systolic dysfunction. Normal right ventricular systolic function. Moderate mitral and trace tricuspid regurgitation. Trace aortic and pulmonic insufficiency. Probable normal central venous and pulmonary artery pressures A1c and fasting lipid panel in a.m. Patient aspirin initiated. Continue medical management with ASA/BB/ARB/statin as below Appreciate cardiology consult DM2 A1c 7.December Holding Metformin. Will place on SSI CAD/HTN/dyslipidemia/Ischemic Cardiomyopathy Patient notes 2 prior MIs in with stents placed to the LAD and RCA. This was done through [facility] Continue aspirin 81 mg, atorvastatin 20 mg as directed, coenzyme Q10 100 mg, nebivolol 10 mg, telmisartanhydrochlorothiazide 80 mg - 12.5 mg, Lasix 40 mg LVEF of 40% - 45% (Echocardiogram August 2010) Permanent A. fib Rate controlled Continue Pradaxa anticoagulation 150 mg twice daily FEN/GI: Low-sodium heart healthy diet. N.p.o. after midnight DVT prophylaxis: Pradaxa CODE STATUS: DNR/DNI Dispo: Med telemetry History of Present Illness Chief Complaint: Chest pain Primary Care Provider: Luis Felipe Crowley MD 76-year-old male with past medical history coronary disease with 2 MIs in the past 2001/2004 stents placed both times to the LAD and RCA, Permanent Atrial Fibrillation (rate controlled / Pradaxa anticoagulation), Type 2 DM, Hypertension, Dyslipidemia, DJD, and an Ischemic Cardiomyopathy with an LVEF of 40% - 45% (Echocardiogram August 2010) presents with concerns of epigastric pain last around 6:30 PM last evening. Patient notes that he has never had a previous occurrence quite like this ever before, noting that his previous MIs do not feel like this. Pain lasted about 20 minutes in duration. Described as dull constant pressure, nonradiating. 8 out of 10 on severity scale. Patient noted second occurrence of epigastric pain around 9:30 PM this episode lasted about 2 hours, resolved before EMS arrived. No known exacerbating factors. Pain alleviated somewhat with belching. Associated nausea with dry heaving, diaphoresis. Patient otherwise denies any fevers, chills, sweats, vomiting, di arrhea, shortness of breath, palpitations, edema, syncope or near syncope, headache, urinary symptoms, abdominal pain, known sick contacts or recent travel anywhere. Patient with no other acute concerns or complaints Pertinent labs: Glucose 207. Initial troponin WNL 0.024. Lipase WNL 154. Otherwise largely unremarkable CBC CMP EKG: Atrial fibrillation with PVCs at a rate of 65. There is no obvious signs of ischemia. There is no ST segment elevation or depression. This was compared to prehospital EKGs and the ST segment depression in the anterior leads from the prehospital EKG has resolved. There is evidence of a right bundle branch block but this is unchanged from old EKGs. ER course: Unremarkable. EMS gave 4 aspirin [employer] Allergies Allergy/AdvReac Type Severity Reaction Status Date / Time Iodinated Contrast Media Allergy Unknown RASH Verified 06/06/20 01:23 meloxicam Allergy Unknown interacts Verified 06/06/20 01:23 with glucose readings and Lasix simvastatin Allergy Unknown rash Verified 06/06/20 01:23 spironolactone Allergy Unknown RASH Verified 06/06/20 01:23 niacin AdvReac Unknown red flush Verified 06/06/20 01:23 Home Medications Medication Instructions Recorded Confirmed Type aspirin 81 mg tablet,delayed 81 mg PO DAILY 04/02/19 06/06/20 History release atorvastatin 20 mg tablet 20 mg PO [id number] tab 04/02/19 06/06/20 History cholecalciferol (vitamin D3) 25 1,000 units PO DAILY 04/02/19 06/06/20 History mcg (1,000 unit) capsule coenzyme Q10 100 mg capsule 100 mg PO DAILY 04/02/19 06/06/20 History cyanocobalamin (vitamin B-12) 1,000 mcg PO DAILY 04/02/19 06/06/20 History 1,000 mcg tablet dabigatran etexilate 150 mg capsule 150 mg PO BID 04/02/19 06/06/20 History diphenhydramine HCl 50 mg capsule 50 mg PO BID PRN cap 04/02/19 06/06/20 History docusate sodium 100 mg capsule 100 mg PO BID 04/02/19 06/06/20 History esomeprazole magnesium 40 mg 40 mg PO QAM cap 04/02/19 06/06/20 History capsule,delayed release ferrous sulfate 325 mg (65 mg 325 mg PO DAILY tab 04/02/19 06/06/20 History iron) tablet,delayed release furosemide 40 mg tablet 40 mg PO QAM 04/02/19 06/06/20 History metformin 500 mg tablet 500 mg PO BID 04/02/19 06/06/20 History multivitamin 1 tab PO DAILY 04/02/19 06/06/20 History nebivolol 10 mg tablet 10 mg PO QDD 04/02/19 06/06/20 History nitroglycerin 0.4 mg sublingual 0.4 mg SL UD PRN 04/02/19 06/06/20 History tablet omega [id number]-fish oil 1,000 mg 1 cap PO BID 04/02/19 06/06/20 History (120 mg-180 mg) capsule potassium chloride 20 mEq 20 meq PO BID 04/02/19 06/06/20 History tablet,extended release telmisartan 80 1 tab PO QAM 04/02/19 06/06/20 History mg-hydrochlorothiazide 12.5 mg tablet acetaminophen 500 mg PO UD PRN 02/12/20 06/06/20 History magnesium 70 mg PO DAILY 02/12/20 06/06/20 History Past Med/Surg History Medical History (Updated 06/06/20 @ 05:55 by Yovana A Botti, DO) Acid reflux Diabetes High cholesterol WELL CONTROLLED WITH MEDICATION History of kidney stones History of RI (myocardial infarction) X2 - 2001 AND 2004 HTN (hypertension) WELL CONTROLLED WITH MEDICATION Surgical History History of cardiac cath X2 History of colonoscopy History of heart artery stent TOTAL OF 3 - FIRST RI X 2, SECOND RI X 1 History of hernia repair LEFT X1, RIGHT X1 History of surgery ANAL ABCESS History of total hip replacement RIGHT Family History Other Family history of diabetes mellitus in brother Social History Smoking Status: Never smoker Hx Alcohol Use: No Preferred Language: Belarusian Communication Ability: Effective Child Welfare Director Required: No Beliefs That Will Affect Care: None Current Living Situation: Spouse Feels Safe at Home: Yes Assistive Devices: Glasses Review of Systems Review of Systems: All systems reviewed & are unremarkable except as noted in HPI & below Physical Exam Constitutional: WD/WN, vitals as above Eyes: PERRL, conjunctivae normal, anicteric sclerae ENMT: external ear and nose normal, oropharynx normal Respiratory: normal respiratory effort, lungs clear to auscultation Cardiovascular: Rate/Rhythm: regular rate and + irregularly irregular Gastrointestinal (Abdomen): normal bowel sounds, soft, nontender, no hepatosplenomegaly Skin: no rashes, warm and dry Psychiatric: A+Ox3, euthymic affect Results & Data Results & Data ([facility]) Vital Signs (Past 12 Hours) Vital Signs Temp Pulse Resp BP Pulse Ox 06/06/20 01:31 56 L 17 98 06/06/20 01:30 55 L 18 116/58 L 98 06/06/20 01:01 56 L 19 98 06/06/20 01:00 58 L 18 107/49 L 98 06/06/20 00:57 96 06/06/20 00:37 54 L 20 94 06/06/20 00:31 59 L 12 94 06/06/20 00:30 59 L 13 114/59 L 94 06/06/20 00:18 36.7 C 73 21 124/62 96 06/06/20 00:17 72 21 124/62 96 Laboratory Results Laboratory Results - last 24 hr 06/06/20 06/06/20 06/06/20 00:10 00:10 00:10 WBC 10.03 RBC 4.89 Hgb 14.9 Hct 44.3 MCV 90.6 MCH 30.5 MCHC 33.6 RDW Std Deviation 45.1 RDW Coeff of Veronica 13.8 Plt Count 315 MPV 11.4 H Immature Gran % (Auto) 0.3 Neut % (Auto) 76.3 Lymph % (Auto) 15.0 [place] % (Auto) 6.5 Eos % (Auto) 1.7 Baso % (Auto) 0.2 Neut # (Auto) 7.66 H Lymph # (Auto) 1.50 [place] # (Auto) 0.65 H Eos # (Auto) 0.17 Baso # (Auto) 0.02 Immature Gran # (Auto) 0.03 H PT 13.0 H INR 1.2 H APTT 47.1 H* PTT Ratio 1.7 Sodium 139 Potassium 3.9 Chloride 103 Carbon Dioxide 29 Anion Gap 7.0 BUN 17 Creatinine 1.19 Est Cr Clr Drug Dosing 58.0 Est GFR ( Amer) 69.3 Est GFR (Non-Af Amer) 59.8 BUN/Creatinine Ratio 14.5 Glucose 207 H Calcium 9.7 Total Bilirubin 0.6 AST 24 ALT 20 Alkaline Phosphatase 89 Troponin I 0.024 Total Protein 7.8 Albumin 3.7 Globulin 4.1 H Albumin/Globulin Ratio 0.9 Lipase 154 Code Status & VTE Plan Code Status DNR/DNI Supervising Physician Co-Signing Physician Notes Patient seen and examined, chart reviewed, case discussed with Dr. Belcher and I agree with his assessment and plan as documented above. Briefly, patient is a 75yo male with CAD, AF, HTN presenting with epigastric chest discomfort. On exam he is afebrile, HD stable, CP free SKin - intact, well perfused HEENT- NC/AT, PERRL, EOMI, Neck supple Heart - +S1/S2 Lungs - CTA Abd - +BS, soft, NT/ND, no epigastric tenderness Labs and images reviewed Plan: -trend troponin -ASA -2D echo -Cardiology consultation appreciated Resident Activity Tracking Resident Involvement: Resident Care Provided Care Provided: Adult [facility] Medicine
--- NOTE | 2020-06-06 05:49 | Billing Data ---
Date of Service June 06, 2020 Coding Level of Care Code 78804 OBS Care - Level 3
[2020-06-06] MEDS ORDERED: MoRPHine SULFATE 2 MG/ML CARP IV PRN (07:23)
[2020-06-06] MEDS ORDERED: GLUCAGON FOR INJ 1 MG VIAL SQ PRN (07:23)
[2020-06-06] MEDS ORDERED: CARBOHYDRATES FOR HYPOGLYCEMIA PO PRN (07:23)
[2020-06-06] MEDS ORDERED: DEXTROSE 50% 50 ML SYRINGE IV PRN (07:23)
[2020-06-06] MEDS ORDERED: NITROGLYCERIN SL 0.4 MG/TAB TAB SL PRN (07:23)
[2020-06-06] MEDS ORDERED: GLUCOSE 40% GEL 15 GM TUBE PO PRN (07:23)
[2020-06-06] MEDS ORDERED: ACETAMINOPHEN 325 MG TAB PO PRN (07:23)
[2020-06-06] MEDS ORDERED: ONDANSETRON INJ 2 MG/ML 2 ML VIAL IV PRN (07:23)
[2020-06-06] MEDS ORDERED: GLUCOSE 10 TABS/TUBE PO PRN (07:23)
[2020-06-06] MEDS ORDERED: ALUMINUM/MAGNESIUM SUSP 30 ML UDC PO PRN (07:23)
--- NOTE | 2020-06-06 08:16 | XRay Report ---
XR chest 1V portable HISTORY: 75 years-old Male Chest Pain acute atypical chest pain COMPARISON: Chest radiographs 05/27/2013 TECHNIQUE: Portable AP view of the chest FINDINGS: Cardiac silhouette is mildly enlarged, unchanged. Calcified mediastinal and hilar lymph nodes. Calcif ied plaque of the thoracic aorta. Eventration of the right hemidiaphragm. No pneumothorax or large pl eural effusion. Ill-defined reticular opacities are noted within the mid and lower lung zones. Degene rative changes of the shoulders and spine. IMPRESSION: 1. Cardiomegaly with mild reticular opacities suggestive of pulmonary vascular congestion versus atyp ical pneumonitis. 2. Prior granulomatous disease. ACT 112: Negative or not required by law. The above report was generated using voice recognition software. It may contain grammatical, syntax o r spelling errors. Electronically signed by: Clarence West M.D. 06/06/2020 8:14 AM
[2020-06-06] MEDS ORDERED: MAGNESIUM OXIDE 400 MG TAB PO SCH (09:00)
[2020-06-06] MEDS ORDERED: TELMISARTAN 40 MG TAB PO SCH (09:00)
[2020-06-06] MEDS ORDERED: DABIGATRAN ETEXILATE 75 MG CAP PO SCH (09:00)
[2020-06-06] MEDS ORDERED: FUROSEMIDE 40 MG TAB PO SCH (09:00)
[2020-06-06] MEDS ORDERED: OMEGA-3 (PURIFIED FISH OIL) 1 GM CAP PO SCH (09:00)
[2020-06-06] MEDS ORDERED: FERROUS SULFATE 325 MG TAB PO SCH (09:00)
[2020-06-06] MEDS ORDERED: MULTIVITAMIN TAB PO SCH (09:00)
[2020-06-06] MEDS ORDERED: CHOLECALCIFEROL 1,000 UNITS 25 MCG TAB PO SCH (09:00)
[2020-06-06] MEDS ORDERED: DOCUSATE SODIUM 100 MG CAP PO SCH (09:00)
[2020-06-06] MEDS ORDERED: ATORVASTATIN 20 MG TAB PO SCH (09:00)
[2020-06-06] MEDS ORDERED: ASPIRIN 81 MG ECTAB PO SCH (09:00)
[2020-06-06] MEDS ORDERED: PANTOprazole 40 MG TAB PO SCH (09:00)
[2020-06-06] MEDS ORDERED: POTASSIUM CHLORIDE CRTAB 20 MEQ TABCR PO SCH (09:00)
[2020-06-06] MEDS ORDERED: hydroCHLOROthiazide 25 MG TAB PO SCH (09:00)
[2020-06-06] MEDS ORDERED: CYANOCOBALAMIN 500 MCG TABLET (VITAMIN B-12) PO SCH (09:00)
[2020-06-06] MEDS ORDERED: INSULIN GLARGINE SOLOSTAR 100 UNITS/ML 3 ML PEN SC SCH (09:00)
--- NOTE | 2020-06-06 09:55 | Cardiology Consultation ---
Date of Consultation June 06, 2020 Assessment & Plan (1) Epigastric pain: Mr. Mendez is a 75 year-old male with a history of CAD s/p Multiple Intracoronary Stents, Permanent Atrial Fibrillation (rate controlled/Pradaxa anticoagulation), Type 2 DM, Hypertension, Dyslipidemia, DJD, and an Ischemic Cardiomyopathy with an LVEF of 40%-45% (Echo 08/2010) -- who was admitted in the senior ecologist hours 06/06/2020 after developing post-prandial mid-epigastric pain with associated diaphoresis and dry-heaves last evening. Patient ate eggs and scrapple for supper, then approximately an hour later he developed these symptoms -- which lasted several minutes up to hour. Symptoms then resolved -- only to recur and lasting approximately another 2 to 2.5 hours. EMS was activated, and the patient's symptoms resolved as the ambulance arrived. According to ER H&P -- "Upon EMS arrival, the patient had an EKG done which showed ST segment depression in the anterior and lateral leads. These EKG changes resolved when the patient was pain-free." I cannot find these EKG tracings in [employer] currently, however, this is concerning for possibly representing transient myocardial ischemia -- although these symptoms "are nothing like the pain I had with my heart attacks". Patient simply describes his symptoms as "belly pain, cold sweats, and dry heaving" without radiation into his chest, back, or scapular region and without any associated dyspnea. -- Troponin I levels are 0.024 and 0.032 ng/mL. -- He is in rate controlled A-Fib on cardiac monitoring. -- EKG's x 2 after presenting: A-Fib with controlled V-rate with an RBBB pattern, prior inferior infarct, no dynamic EKG changes. Recommend the following: -- Await third Troponin I level. -- Echocardiogram was done this morning, but has not been read yet. -- If symptoms represented an ACS, would expect Troponin levels to be much higher -- symptoms lasted > 2 hours. -- Consider other possibilities such as biliary colic/gall bladder disease. -- Check abdominal ultrasound. -- Continue Aspirin 81 mg daily. -- Continue Atorvastatin 20 mg t.i.w.. -- Continue Metoprolol Tartrate 25 mg b.i.d.. -- Convert back to Nebivolol 10 mg daily at discharge. (2) Acute electrocardiogram changes: -- Reviewed pre-hospital EKG x 1 on paper chart. -- Minimal if any ST elevation in V5 and V6. (3) CAD (coronary artery disease): -- Continue current cardiac regimen as outlined. -- This does not appear to be an ACS. (4) Cardiomyopathy: Asymptomatic, no signs or symptoms of heart failure. -- Continue beta marie, ARB, and diuretics that he takes at home. (5) Atrial fibrillation, permanent: Rate controlled and asymptomatic Permanent A-Fib: -- Continue beta marie therapy and termite control representative anticoagulation with Pradaxa 150 mg b.i.d.. (6) Hypertension, essential: BP's are well controlled. -- Continue Metoprolol Tartrate 25 mg b.i.d.. -- Convert back to Nebivolol 10 mg daily at discharge. -- Continue Telmisartan HCT 80-12.5 mg daily. -- Continue Lasix 40 mg daily. -- Continue Potassium Chloride 20 mEq b.i.d.. -- Low sodium, heart healthy diet. Supervising Physician Co-Signing Physician Notes I discussed this case with Rashid Navarrete. I agree with his assessment and plan, it is probably noncardiac chest discomfort. History of Present Illness Reason for Consultation: -- Mid-epigastric pain, diaphoresis, dry heaves. -- Transient ST changes on pre-hospital EKG. -- CAD s/p Multiple Intracoronary Stents. Requesting Physician: Yue Dominguez DO Attending Physician: Chadwick Osorio MD. History of Present Illness Mr. Mendez is a 75 year-old male with a history of CAD s/p Multiple Intracoronary Stents, Permanent Atrial Fibrillation (rate controlled/Pradaxa anticoagulation), Type 2 DM, Hypertension, Dyslipidemia, DJD, and an Ischemic Cardiomyopathy with an LVEF of 40%-45% (Echo 08/2010) -- who was admitted in the senior ecologist hours 06/06/2020 after developing post-prandial mid-epigastric pain with associated diaphoresis and dry-heaves last evening. Patient ate eggs and scrapple for supper, then approximately an hour later he developed these symptoms -- which lasted several minutes up to hour. Symptoms then resolved -- only to recur and lasted approximately another 2 to 2.5 hours. EMS was activated. The patient's symptoms resolved as the ambulance was pulling into his driveway. Patient describes it as "belly pain, cold sweats, and dry heaving". The pain did not radiate into his chest, back, or scapular region. He denies any associated dyspnea and was not nauseated. He states that these symptoms "are nothing like the pain I had with my heart attacks". According to ER H&P -- "Upon EMS arrival, the patient had an EKG done which showed ST segment deviations in the anterior and lateral leads. These EKG changes resolved when the patient was chest pain-free." I cannot find these EKG tracings in [employer] currently. Nonetheless, his Troponin I levels are 0.024 and 0.032 ng/mL, another is pending. 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 EKG's after arriving at the ER show A-Fib with controlled V-rate with an RBBB pattern and prior inferior infarct. No acute or dynamic EKG changes. Patient is currently and completely asymptomatic -- he has not had any further symptoms since the ambulance pulled in his driveway. He offers no complaints and is anxious to go home. HISTORICAL BACKGROUND: His cardiac history dates back to October 2001, when he presented with an acute IPL RI (treated with TPA). Cardiac Catheterization 10/22/2001 at [facility] showed 100% LCx occlusion, 80% RCA stenosis, and an 80% LAD diagonal stenosis.LVEF 40%. Patient underwent deployment of 3.5 x 18 mm and 4.5 x 13 mm bare metal stents in the mid and proximal RCA. He also had a 2.75 x 9 mm stent deployed in the LAD diagonal at that time. Patient sustained a non-ST elevation RI August 01, 2005. He was transferred to [facility] where he underwent repeat cardiac catheterization. He had patent stent site in the LAD diagonal and proximal to mid RCA. He was noted to have a 99% left circumflex marginal stenosis which could not be intervened upon, and only mild disease of the LAD. There was 70% mid RCA disease just beyond the previous stent site. He had 3 bare metal stents deployed in the mid to distal RCA. This included 4.5 x 12 mm, 4.0 x 12 mm, and 4.0 x 8 mm bare metal stents. Allergies Allergy/AdvReac Type Severity Reaction Status Date / Time Iodinated Contrast Media Allergy Unknown RASH Verified 06/06/20 01:23 meloxicam Allergy Unknown interacts Verified 06/06/20 01:23 with glucose readings and Lasix simvastatin Allergy Unknown rash Verified 06/06/20 01:23 spironolactone Allergy Unknown RASH Verified 06/06/20 01:23 niacin AdvReac Unknown red flush Verified 06/06/20 01:23 Home Medications Medication Instructions Recorded Confirmed Type aspirin 81 mg tablet,delayed 81 mg PO DAILY 04/02/19 06/06/20 History release atorvastatin 20 mg tablet 20 mg PO [id number] tab 04/02/19 06/06/20 History cholecalciferol (vitamin D3) 25 1,000 units PO DAILY 04/02/19 06/06/20 History mcg (1,000 unit) capsule coenzyme Q10 100 mg capsule 100 mg PO DAILY 04/02/19 06/06/20 History cyanocobalamin (vitamin B-12) 1,000 mcg PO DAILY 04/02/19 06/06/20 History 1,000 mcg tablet dabigatran etexilate 150 mg capsule 150 mg PO BID 04/02/19 06/06/20 History diphenhydramine HCl 50 mg capsule 50 mg PO BID PRN cap 04/02/19 06/06/20 History docusate sodium 100 mg capsule 100 mg PO BID 04/02/19 06/06/20 History esomeprazole magnesium 40 mg 40 mg PO QAM cap 04/02/19 06/06/20 History capsule,delayed release ferrous sulfate 325 mg (65 mg 325 mg PO DAILY tab 04/02/19 06/06/20 History iron) tablet,delayed release furosemide 40 mg tablet 40 mg PO QAM 04/02/19 06/06/20 History metformin 500 mg tablet 500 mg PO BID 04/02/19 06/06/20 History multivitamin 1 tab PO DAILY 04/02/19 06/06/20 History nebivolol 10 mg tablet 10 mg PO QDD 04/02/19 06/06/20 History nitroglycerin 0.4 mg sublingual 0.4 mg SL UD PRN 04/02/19 06/06/20 History tablet omega 4-ifh-jlw-fish oil 1,000 mg 1 cap PO BID 04/02/19 06/06/20 History (120 mg-180 mg) capsule potassium chloride 20 mEq 20 meq PO BID 04/02/19 06/06/20 History tablet,extended release telmisartan 80 1 tab PO QAM 04/02/19 06/06/20 History mg-hydrochlorothiazide 12.5 mg tablet acetaminophen 500 mg PO UD PRN 02/12/20 06/06/20 History magnesium 70 mg PO DAILY 02/12/20 06/06/20 History Patient History Medical History Acid reflux Diabetes High cholesterol WELL CONTROLLED WITH MEDICATION History of kidney stones History of RI (myocardial infarction) X2 - 2001 AND 2004 HTN (hypertension) WELL CONTROLLED WITH MEDICATION Surgical History History of cardiac cath X2 History of colonoscopy History of heart artery stent TOTAL OF 3 - FIRST RI X 2, SECOND RI X 1 History of hernia repair LEFT X1, RIGHT X1 History of surgery ANAL ABCESS History of total hip replacement RIGHT Family History Other Family history of diabetes mellitus in brother Social History Smoking Status: Former smoker Hx Alcohol Use: No Hx Substance Use: No Preferred Language: Azerbaijani Communication Ability: Effective Frame Fixer Required: No Beliefs That Will Affect Care: None Current Living Situation: Spouse Feels Safe at Home: Yes Assistive Devices: Denture - Upper, Denture - Lower and Glasses Physical Exam Physical Exam: General: Patient in no acute distress. HEENT: Head is atraumatic, normocephalic. EOMs intact. Sclera anicteric. Facies symmetric. No perioral cyanosis. Neck: No JVD. Carotid upstrokes +2 bilaterally without obvious bruits. Chest and Lungs: Mildly diminished breath throughout with occasional late expiratory wheezes. CVS: S1 and S2 are irregularly irregular with an apical rate of approximately 65 bpm. No obvious murmurs, gallops, or rubs. PMI is nondisplaced. No lifts, heaves, or thrills. No abdominal aortic or renal bruits. Abdominal Exam: Bowel sounds are present. No masses, organomegaly, or tenderness. Mid-epigastrium is non-tender to deep palpation. Extremities: No clubbing, cyanosis, or edema. Neurologic Exam: Patient is awake, alert, and oriented. Pleasant and cooperative. Answers questions appropriately. Speech is clear. Normal movement in all 4 extremities. Rate controlled A-Fib on cardiac monitoring. EKG's after arriving at the ER show: -- A-Fib with controlled V-rate with an RBBB pattern and prior inferior infarct. -- No acute or dynamic EKG changes. Results & Data ([facility]) Vital Signs (Past 12 Hours) Vital Signs Temp Pulse Pulse Resp BP BP Pulse Ox 06/06/20 08:46 36.3 C L 61 16 121/67 96 06/06/20 08:00 36.4 C L 61 20 132/65 98 06/06/20 07:48 63 06/06/20 06:30 61 20 108/64 98 06/06/20 04:31 59 L 16 98 06/06/20 04:30 53 L 14 104/69 06/06/20 04:01 56 L 16 98 06/06/20 04:00 56 L 16 120/69 98 06/06/20 02:30 49 L 17 104/50 L 98 06/06/20 01:31 56 L 17 98 06/06/20 01:30 55 L 18 116/58 L 98 06/06/20 01:01 56 L 19 98 06/06/20 01:00 58 L 18 107/49 L 98 06/06/20 00:57 96 06/06/20 00:37 54 L 20 94 06/06/20 00:31 59 L 12 94 06/06/20 00:30 59 L 13 114/59 L 94 06/06/20 00:18 36.7 C 73 21 124/62 96 06/06/20 00:17 72 21 124/62 96 Laboratory Results Laboratory Results - last 24 hr 06/06/20 06/06/20 06/06/20 00:10 00:10 00:10 WBC 10.03 RBC 4.89 Hgb 14.9 Hct 44.3 MCV 90.6 MCH 30.5 MCHC 33.6 RDW Std Deviation 45.1 RDW Coeff of Veronica 13.8 Plt Count 315 MPV 11.4 H Immature Gran % (Auto) 0.3 Neut % (Auto) 76.3 Lymph % (Auto) 15.0 Knox % (Auto) 6.5 Eos % (Auto) 1.7 Baso % (Auto) 0.2 Neut # (Auto) 7.66 H Lymph # (Auto) 1.50 Knox # (Auto) 0.65 H Eos # (Auto) 0.17 Baso # (Auto) 0.02 Immature Gran # (Auto) 0.03 H PT 13.0 H INR 1.2 H APTT 47.1 H* PTT Ratio 1.7 Sodium 139 Potassium 3.9 Chloride 103 Carbon Dioxide 29 Anion Gap 7.0 BUN 17 Creatinine 1.19 Est Cr Clr Drug Dosing 58.0 Est GFR ( Amer) 69.3 Est GFR (Non-Af Amer) 59.8 BUN/Creatinine Ratio 14.5 Glucose 207 H POC Glucose Calcium 9.7 Total Bilirubin 0.6 AST 24 ALT 20 Alkaline Phosphatase 89 Troponin I 0.024 Total Protein 7.8 Albumin 3.7 Globulin 4.1 H Albumin/Globulin Ratio 0.9 Lipase 154 SARS-CoV-2 Ag (Rapid) 06/06/20 06/06/20 06/06/20 07:36 07:46 Unknown WBC RBC Hgb Hct MCV MCH MCHC RDW Std Deviation RDW Coeff of Veronica Plt Count MPV Immature Gran % (Auto) Neut % (Auto) Lymph % (Auto) Knox % (Auto) Eos % (Auto) Baso % (Auto) Neut # (Auto) Lymph # (Auto) Knox # (Auto) Eos # (Auto) Baso # (Auto) Immature Gran # (Auto) PT INR APTT PTT Ratio Sodium Potassium Chloride Carbon Dioxide Anion Gap BUN Creatinine Est Cr Clr Drug Dosing Est GFR ( Amer) Est GFR (Non-Af Amer) BUN/Creatinine Ratio Glucose POC Glucose 114 H Calcium Total Bilirubin AST ALT Alkaline Phosphatase Troponin I 0.032 Total Protein Albumin Globulin Albumin/Globulin Ratio Lipase SARS-CoV-2 Ag (Rapid) Negative Medications Administered Active Medications Generic Name Dose Route Start Last Admin Trade Name Freq PRN Reason Stop Dose Admin Acetaminophen 650 mg 06/06/20 07:23 Acetaminophen 325 Mg Tab PO 07/06/20 07:22 Q4H PRN Pain or Fever Al Hydrox/Mg Hydrox/Simethicone 15 ml 06/06/20 07:23 Aluminum/Magnesium Susp 30 Ml Udc PO 07/06/20 07:22 Q4H PRN Dyspepsia Aspirin 81 mg 06/06/20 09:00 06/06/20 09:27 Aspirin 81 Mg Ectab PO 07/06/20 08:59 81 mg DAILY CYNTHIA Administration Atorvastatin Calcium 20 mg 06/06/20 09:00 06/06/20 09:27 Atorvastatin 20 Mg Tab PO 07/06/20 08:59 20 mg [id number] CYNTHIA Administration Cyanocobalamin 1,000 mcg 06/06/20 09:00 06/06/20 09:28 Cyanocobalamin 500 Mcg Tablet (Vitamin B-12) PO 07/06/20 08:59 1,000 mcg DAILY CYNTHIA Administration Dabigatran 150 mg 06/06/20 09:00 06/06/20 09:31 Dabigatran Etexilate 75 Mg Cap PO 07/06/20 08:59 150 mg BID CYNTHIA Administration Dextrose 25 - 50 ml 06/06/20 07:23 Dextrose 50% 50 Ml Syringe IV 07/06/20 07:22 UD PRN Hypoglycemia Protocol Protocol Docusate Sodium 100 mg 06/06/20 09:00 06/06/20 09:28 Docusate Sodium 100 Mg Cap PO 07/06/20 08:59 100 mg BID CYNTHIA Administration Ferrous Sulfate 325 mg 06/06/20 09:00 06/06/20 09:29 Ferrous Sulfate 325 Mg Tab PO 07/06/20 08:59 325 mg DAILY CYNTHIA Administration Fish Oil 1 gm 06/06/20 09:00 06/06/20 09:28 [place]-3 (Purified Fish Oil) 1 Gm Cap PO 07/06/20 08:59 1 gm BID CYNTHIA Administration Furosemide 40 mg 06/06/20 09:00 06/06/20 09:27 Furosemide 40 Mg Tab PO 07/06/20 08:59 40 mg QAM CYNTHIA Administration Glucagon 1 mg 06/06/20 07:23 Glucagon For Inj 1 Mg Vial SQ 07/06/20 07:22 UD PRN Hypoglycemia Protocol Protocol Glucose 4 - 8 tabs 06/06/20 07:23 Glucose 10 Tabs/Tube PO 07/06/20 07:22 UD PRN Hypoglycemia Protocol Protocol Glucose 15 - 30 gm 06/06/20 07:23 Glucose 40% Gel 15 Gm Tube PO 07/06/20 07:22 UD PRN Hypoglycemia Protocol Protocol Hydrochlorothiazide 12.5 mg 06/06/20 09:00 06/06/20 09:31 Hydrochlorothiazide 25 Mg Tab PO 07/06/20 08:59 12.5 mg QAM CYNTHIA Administration Insulin Aspart 0 units 06/06/20 07:30 Insulin Aspart 100 Units/Ml 3 Ml Pen SC 07/06/20 07:29 ACHS CYNTHIA Insulin Glargine 15 units 06/06/20 09:00 Insulin Glargine Solostar 100 Units/Ml 3 Ml Pen SC 07/06/20 08:59 BID CYNTHIA Magnesium Oxide 400 mg 06/06/20 09:00 06/06/20 09:31 Magnesium Oxide 400 Mg Tab PO 07/06/20 08:59 400 mg DAILY CYNTHIA Administration Metoprolol Tartrate 25 mg 06/06/20 18:00 Metoprolol Tartrate 25 Mg Tab PO 07/06/20 17:59 BID CYNTHIA Miscellaneous 15 - 30 gm 06/06/20 07:23 Carbohydrates For Hypoglycemia PO 07/06/20 07:22 UD PRN Hypoglycemia Protocol Morphine Sulfate 2 mg 06/06/20 07:23 Morphine Sulfate 2 Mg/Ml Carp IV 06/20/20 07:22 Q4H PRN Chest Pain Multivitamins 1 tab 06/06/20 09:00 06/06/20 09:28 Multivitamin Tab PO 07/06/20 08:59 1 tab DAILY CYNTHIA Administration Nitroglycerin 0.4 mg 06/06/20 07:23 Nitroglycerin Sl 0.4 Mg/Tab Tab SL 07/06/20 07:22 UD PRN Chest Pain Ondansetron HCl 4 mg 06/06/20 07:23 Ondansetron Inj 2 Mg/Ml 2 Ml Vial IV 07/06/20 07:22 Q6H PRN Nausea Pantoprazole Sodium 40 mg 06/06/20 09:00 06/06/20 09:31 Pantoprazole 40 Mg Tab PO 07/06/20 08:59 40 mg QAM CYNTHIA Administration Potassium Chloride 20 meq 06/06/20 09:00 06/06/20 09:29 Potassium Chloride Crtab 20 Meq Tabcr PO 07/06/20 08:59 20 meq BID CYNTHIA Administration Telmisartan 80 mg 06/06/20 09:00 06/06/20 09:32 Telmisartan 40 Mg Tab PO 07/06/20 08:59 80 mg QAM CYNTHIA Administration Vitamin D 1,000 units 06/06/20 09:00 06/06/20 09:28 Cholecalciferol 1,000 Units 25 Mcg Tab PO 07/06/20 08:59 1,000 units DAILY CYNTHIA Administration PG Care Time/CCT Total # of Minutes Spent Total Time Spent with Patient: Total time spent is greater than 50% in coordination of care (as documented) at patient's floor/unit and/or counseling patient:30 Coding Level of Care Code 16503 Initial Inpt Care Lvl 3 Diagnoses Epigastric pain R10.13 Acute electrocardiogram changes R94.31 CAD (coronary artery disease) I25.10 Cardiomyopathy I42.9 Atrial fibrillation, permanent I48.21 Hypertension, essential I10
[2020-06-06] MEDS: INSULIN ASPART 100 UNITS/ML 3 ML PEN SC SCH ×2 (11:09→12:05)
--- NOTE | 2020-06-06 12:12 | Electrocardiogram Report ---
Test Reason : Blood Pressure : / mmHG Vent. Rate : 065 BPM Atrial Rate : 312 BPM P-R Int : 000 ms QRS Dur : 172 ms QT Int : 468 ms P-R-T Axes : 000 252 014 degrees QTc Int : 486 ms Atrial fibrillation with PVCs Right bundle branch block Possible Inferior infarct (cited on or before 15-SEP-2010) Abnormal ECG When compared with ECG of 27-MAY-2013 14:43, No significant change was found Confirmed by Chadiwck Osorio ([id number]) on 06/06/2020 12:12:08 PM Referred By: REFERRED SELF Confirmed By:Chadwick Osorio
--- NOTE | 2020-06-06 12:16 | Electrocardiogram Report ---
Test Reason : Blood Pressure : / mmHG Vent. Rate : 058 BPM Atrial Rate : 214 BPM P-R Int : 000 ms QRS Dur : 160 ms QT Int : 520 ms P-R-T Axes : 000 247 -14 degrees QTc Int : 510 ms Atrial fibrillation with slow ventricular response with premature ventricular or aberrantly conducted complexes Right bundle branch block Lateral infarct , age undetermined Inferior infarct (cited on or before 15-SEP-2010) Abnormal ECG When compared with ECG of 06-JUN-2020 00:16, (unconfirmed) No significant change was found Confirmed by Chadwick Osorio ([id number]) on 06/06/2020 12:15:59 PM Referred By: REFERRED SELF Confirmed By:Chadwick Osorio
--- NOTE | 2020-06-06 12:52 | XCELERA ---
[id number]
--- NOTE | 2020-06-06 14:29 | Ultrasound Report ---
US abdomen complete CLINICAL HISTORY: Midepigastric pain, diaphoresis, dry heaves COMPARISON STUDY: CT scan performed August 2010 FINDINGS: The aorta and IVC are unremarkable as visualized. No focal hepatic masses are visualized. There is no ductal dilatation. The common bile duct measures 6 mm. The gallbladder contains sludge and calculi. There is no significant gallbladder wall thickening. The technologist reports a negative sonographic Winters sign. The pancreas is obscured. Multiple splenic granulomas are visualized. The spleen measures 12 cm in length. The right kidney measures 10.8 cm in length. There are right lower pole renal calculi the largest of which measures 13 mm. The left kidney measures 12 cm in length. There are multiple cysts the largest of which measures 18 m m. There is no hydronephrosis IMPRESSION: 1. Cholelithiasis. No evidence of ductal dilatation 2. Right-sided nephrolithiasis 2. No evidence of hydronephrosis 4. Nondiagnostic evaluation of pancreas. ACT 112: Negative or not required by law. Electronically signed by: Cruz Chatterjee M.D. 06/06/2020 2:28 PM
[2020-06-06 16:56] VITALS: BP 115/62; TEMP 97.7; O2SAT 95
[2020-06-06 17:27] VITALS: PULSE 52
[2020-06-06] MEDS ORDERED: METOPROLOL TARTRATE 25 MG TAB PO SCH (18:00)
--- NOTE | 2020-06-13 11:10 | Discharge Summary ---
Date of Service June 06, 2020 Admission HPI Per Admitting Provider 76-year-old male with past medical history coronary disease with 2 MIs in the past 2001/2004 stents placed both times to the LAD and RCA, Permanent Atrial Fibrillation (rate controlled / Pradaxa anticoagulation), Type 2 DM, Hypertension, Dyslipidemia, DJD, and an Ischemic Cardiomyopathy with an LVEF of 40% - 45% (Echocardiogram August 2010) presents with concerns of epigastric pain last around 6:30 PM last evening. Patient notes that he has never had a previous occurrence quite like this ever before, noting that his previous MIs do not feel like this. Pain lasted about 20 minutes in duration. Described as dull constant pressure, nonradiating. 8 out of 10 on severity scale. Patient noted second occurrence of epigastric pain around 9:30 PM this episode lasted about 2 hours, resolved before EMS arrived. No known exacerbating factors. Pain alleviated somewhat with belching. Associated nausea with dry heaving, diaphoresis. Patient otherwise denies any fevers, chills, sweats, vomiting, diarrhea, shortness of breath, palpitations, edema, syncope or near syncope, headache, urinary symptoms, abdominal pain, known sick contacts or recent travel anywhere. Patient with no other acute concerns or complaints Pertinent labs: Glucose 207. Initial troponin WNL 0.024. Lipase WNL 154. Otherwise largely unremarkable CBC CMP EKG: Atrial fibrillation with PVCs at a rate of 65. There is no obvious signs of ischemia. There is no ST segment elevation or depression. This was compared to prehospital EKGs and the ST segment depression in the anterior leads from the prehospital EKG has resolved. There is evidence of a right bundle branch block but this is unchanged from old EKGs. ER course: Unremarkable. EMS gave 4 aspirin [employer] Principal Diagnosis Epigastric Pain Discharge Exam Constitutional: WD/WN, vitals as above Eyes: PERRL, conjunctivae normal, anicteric sclerae ENMT: external ear and nose normal, oropharynx normal Respiratory: normal respiratory effort, lungs clear to auscultation Cardiovascular: Rate/Rhythm: regular rate and + irregularly irregular Gastrointestinal (Abdomen): normal bowel sounds, soft, nontender, no hepatosplenomegaly Skin: no rashes, warm and dry Psychiatric: A+Ox3, euthymic affect Discharge Data Allergies Allergy/AdvReac Type Severity Reaction Status Date / Time Iodinated Contrast Media Allergy Unknown RASH Verified 12/21/20 01:23 meloxicam Allergy Unknown interacts Verified 06/06/20 01:23 with glucose readings and Lasix simvastatin Allergy Unknown rash Verified 06/06/20 01:23 spironolactone Allergy Unknown RASH Verified 06/06/20 01:23 niacin AdvReac Unknown red flush Verified 06/06/20 01:23 Consultations 06/06/20 01:04 ED Decision to Admit Stat 06/06/20 07:23 Consult Cardiology Routine Ordered Studies 06/06/20 13:30 US abdomen complete Routine Hospital Course (1) Epigastric pain: 76-year-old male with past medical history coronary disease with 2 MIs in the past stents placed to the LAD and RCA, Permanent Atrial Fibrillation (rate controlled / Pradaxa anticoagulation), Type 2 DM, Hypertension, Dyslipidemia, DJD, and an Ischemic Cardiomyopathy with an LVEF of 40% - 45% (Echocardiogram August 2010) presents with concerns of epigastric pain admitted for chest pain rule out. Chest pain Admit to [facility] telemetry EKG: Atrial fibrillation with PVCs at a rate of 65. There is no obvious signs of ischemia. There is no ST segment elevation or depression. This was compared to prehospital EKGs and the ST segment depression in the anterior leads from the prehospital EKG has resolved. There is evidence of a right bundle branch block but this is unchanged from old EKGs from May 27, 2013 Patient currently without any pain, but given EKG changes with [employer] chest pain findings concerning for ACS Troponin admission WNL 0.024. Will trend x2 every 6 hours Morphine and nitroglycerin ordered as needed chest pain N.p.o. for any possible cardiac intervention tomorrow Echo pending. Last echo August 2010: Mild biventricular dilatation. Moderate left atrial dilatation. Mild to moderate left ventricular systolic dysfunction. Normal right ventricular systolic function. Moderate mitral and trace tricuspid regurgitation. Trace aortic and pulmonic insufficiency. Probable normal central venous and pulmonary artery pressures A1c and fasting lipid panel in a.m. Patient aspirin initiated. Continue medical management with ASA/BB/ARB/statin as below Appreciate cardiology consult Appreciate input from cardiology. -- If symptoms represented an ACS, would expect Troponin levels to be much higher -- symptoms lasted > 2 hours. -- Consider other possibilities such as biliary colic/gall bladder disease. -- Check abdominal ultrasound: this was negative. -- Continue Aspirin 81 mg daily. -- Continue Atorvastatin 20 mg t.i.w.. -- Continue Metoprolol Tartrate 25 mg b.i.d.. -- Convert back to Nebivolol 10 mg daily at discharge. Patient felt improvement on day of discharge and asked to be discharged home. If pain return, instructed patient to return to hospital. Recommend close followup with patient. (2) Atrial fibrillation, permanent: Rate controlled Continue Pradaxa anticoagulation 150 mg twice daily (3) Hypertension, essential: resumed home meds. (4) Stented coronary artery: Patient notes 2 prior MIs in with stents placed to the LAD and RCA. This was done through [facility] Continue aspirin 81 mg, atorvastatin 20 mg as directed, coenzyme Q10 100 mg, nebivolol 10 mg, telmisartanhydrochlorothiazide 80 mg - 12.5 mg, Lasix 40 mg LVEF of 40% - 45% (Echocardiogram August 2010) (5) Diabetes: Diabetes mellitus 2 A1c 7.December will resume home meds. -ON SSI while here. Total Time Total Time Spent Total Time Spent (In Minutes): 32 Discharge Plan Discharge Items Patient Disposition: Home - Self-Care Reason For Visit: CP Discharge Diagnosis: chest pain Activity: Resume your previous activity Non-emergency contact: Primary Care Provider Call non-emergency contact if: you have any medication questions Follow-up/Referrals: Luis Felipe Crowley MD [Primary Care Provider] - Diet: Carb Consistent or DM2 Addtl Attending Provider Instructions: You have been hospitalized for abdominal pain. Your pain has subsided. Your ultrasound imaging of abdomen was negative. You were also seen by cardiology and this pain does not appear to be heart related. will recommend close followup with your PCP. If your pain returns please come back to the hospital. Pending Studies at Discharge: No Stand-Alone Forms: [employer] Plan, Smoking Cessation Medications and DC Order Prescriptions: Continued aspirin 81 mg tablet,delayed release (DR/EC) 81 mg PO DAILY RF: 0 Bystolic 10 mg tablet 10 mg PO QDD RF: 0 coenzyme Q10 [Co Q-10] 100 mg capsule 100 mg PO DAILY RF: 0 docusate sodium [Colace] 100 mg capsule 100 mg PO BID RF: 0 diphenhydramine HCl 50 mg capsule 50 mg PO BID PRN (Reason: SEASONAL ALLERGIES) RF: 0 omega 8-rns-ldp-fish oil [Fish Oil] 1,000 mg (120 mg-180 mg) capsule 1 cap PO BID RF: 0 ferrous sulfate 325 mg (65 mg iron) tablet,delayed release (DR/EC) 325 mg PO DAILY RF: 0 furosemide [Lasix] 40 mg tablet 40 mg PO QAM RF: 0 atorvastatin [Lipitor] 20 mg tablet 20 mg PO 3XWK RF: 0 metformin 500 mg tablet 500 mg PO BID RF: 0 telmisartan-hydrochlorothiazid [Micardis HCT] 80-12.5 mg tablet 1 tab PO QAM RF: 0 multivitamin tablet 1 tab PO DAILY RF: 0 esomeprazole magnesium [Nexium] 40 mg capsule,delayed release(DR/EC) 40 mg PO QAM RF: 0 nitroglycerin 0.4 mg tablet, sublingual 0.4 mg SL UD PRN (Reason: Chest Pain) RF: 0 potassium chloride 20 mEq tablet extended release 20 meq PO BID RF: 0 Pradaxa 150 mg capsule 150 mg PO BID RF: 0 cyanocobalamin (vitamin B-12) [Vitamin B-12] 1,000 mcg tablet 1,000 mcg PO DAILY RF: 0 cholecalciferol (vitamin D3) 1,000 unit capsule 1,000 units PO DAILY RF: 0 magnesium 30 mg Tablet 70 mg PO DAILY RF: 0 acetaminophen 500 mg Capsule 500 mg PO UD PRN (Reason: ACHES AND PAINS) RF: 0 Discharge Orders: Discharge Order (Routine); Ordered 06/06/20 Ordered By: Nura Zavala Admission Data Admit Date/Time: 06/06/20 03:35 Attending Provider: Yue Dominguez Admit Provider: Jhon Belcher Primary Care Provider: Luis Felipe Crowley Other Providers: Yue Dominguez ; Chadwick Osorio Other Interventions: Discharge Summary Assessment (RN) Last Done: 06/06/20 17:26 Coding Level of Care Code 80899 OBS Care - Discharge Diagnoses Epigastric pain R10.13 Atrial fibrillation, permanent I48.21 Hypertension, essential I10 Stented coronary artery Z95.5 Diabetes E11.9
== END 2020-06-06 17:55 | disposition home or self-care (01) ==
LOC: 2N 00:10 → ED 00:10 → 2N 03:35

== ENCOUNTER 2021-08-23 16:13 | Inpatient (IN) ==
[~2021-08-23 16:13] MED LIST changes: -ACET-1256 PO; -ASPEC81 PO; -ATOR-22 PO; -BYS10 PO; -CHOL1000 PO; -CLC100 PO; -COEN100C7 PO; -CYAN10005 PO; -DABI150C PO; -DIPH25CA37 PO; -FRS/40 PO; +KETAMINE HCL INJ 50 MG/ML 10 ML VIAL IV ONE; -MAGN1TAB15 PO; -METF500T PO; -MOME50SP5; -MULT-506 PO; +NOREPINEPHRINE/D5W 8 MG/508 ML IV ONE; -NTRGSL/4 UT; -NXM/40 PO; -OMEG10007 PO; -POTA-335 PO; +RAPID SEQUENCE INDUCTION BAG ONE; +ROCURONIUM BROMIDE 10 MG/ML 5 ML VIAL IV ONE; -TELM80TA6 PO
[2021-08-23 16:23] LABS: Basophils # (auto) 0.04 K/uL (0-0.2); Basophils % (auto) 0.4 %; Eosinophils # (auto) 0.59 K/uL (0-0.5); Eosinophils % (auto) 5.4 %; Hematocrit (blood only) 40.4 % (42-52); Hemoglobin 13.1 g/dL (14.0-18.0); Immature Granulocytes # (auto) 0.28 K/uL (0.00-0.02); Immature Granulocytes % (auto) 2.6 %; Lymphocytes # (auto) 2.02 K/uL (1.2-3.4); Lymphocytes % (auto) 18.4 %; Mean Corpuscular Hemoglobin 30.7 pg (25-34); Mean Corpuscular Hgb Conc 32.4 g/dL (32-36); Mean Corpuscular Volume 94.6 fL (80-100); Monocytes # (auto) 0.92 K/uL (0.11-0.59); Monocytes % (auto) 8.4 %; Neutrophils # (auto) 7.12 K/uL (1.4-6.5); Neutrophils % (auto) 64.8 %; Platelet Count 297 K/uL (130-400); RDW Coefficient of Variation 13.7 % (11.5-14.5); RDW Standard Deviation 47.2 fL (36.4-46.3); Red Blood Count 4.27 M/uL (4.7-6.1); White Blood Count 10.97 K/uL (4.8-10.8)
--- NOTE | 2021-08-23 16:33 | XRay Report ---
XR chest 1V portable CLINICAL HISTORY: Chest Pain. COMPARISON STUDY: 04/04/2021 TECHNIQUE: 1 view of the chest FINDINGS: Single frontal view of the chest demonstrates the heart size to be enlarged. There has been placement of an endotracheal tube with its tip just past the thoracic inlet, approximately 5 cm above the addie na. There is evidence for central vascular congestion and mild interstitial edema characteristic of c ongestive heart failure. The lungs are clear of alveolar opacities. There is no evidence for pleural effusion. There is no acute osseous pathology. IMPRESSION: 1. Central vascular congestion and mild interstitial edema characteristic of congestive heart failure . 2. Tip of the endotracheal tube just past the thoracic inlet, approximately 5 cm above the lorena. ACT 112: Negative or not required by law. Electronically signed by: Perez Aguilar M.D. 08/23/2021 4:31 PM
--- NOTE | 2021-08-23 16:35 | History & Physical Report ---
Date of Service August 23, 2021 Assessment & Plan (1) Cardiac arrest: Plan: Patient s/p arrest with on site CPR and recovered ROSC x2 shocks with arrival of EMS - Unkown down time- no reports of spontaneous movement or eye opening - Head CT prior to can labeler without evidence at this time of bleeding - GCS 3T on arrival- will need full neurological examination post can labeler- anoxic injury is possible - Cooling protocol defer to ICU team - Neurological exams per ICU - Repeat imaging for change or re-evaluation - Afib with RBB on arrival to EMD - Continue his Bystolic - Dabigatran on hold Discussion with had on admission- she states that they both have DNR/DNI and if he were to arrest again that no intervention be made. (2) Laceration of head: Plan: Following his collapse at home - Cleansed in EMD with Betadine by EMD provider - Will need further irrigation and primary closure likely with elvira - Neruo checks with repeat head CT for any changes following for DASH (3) CAD (coronary artery disease): Plan: Multivessel disease with stenting to RCA, LAD, STEMI in 2001 and 2005 - [address] currently- await results or interventions- JAVED to RCA - Brilinta given in can labeler 5 - ASA resume when able (4) Ischemic cardiomyopathy: Plan: EF 40-45 % with ECHO performed 07/07 - Initiate IV lasix for diuresing as able post cath - May need inotropic/vasopressor support- pending - Hold ENTRESTO (5) COPD (chronic obstructive pulmonary disease): Plan: Hold his umeclidinium/vilanterol - Xopinex nebs while intubated in ICU- defer to ICU for further (6) Dyslipidemia: Plan: Appears to have been on Atorvastatin with cardiology visit in December 05- this appears to have been stopped - hold coq10, fish oil, - was previously well controlled (7) Diabetes: Plan: NPO- q6 hour dextrose sticks - hyper/hypoglycemia protocol to ICU (8) Atrial fibrillation, permanent: Plan: Rate controlled with his nebivolol - Chronic anticoagulation with Dabigatran- currently on hold following arrest and can labeler evaluation - restart when appropriate (9) Hypertension, essential: Plan: Hold antihypertensives at this time - follow and restart when appropriate History of Present Illness Primary Care Provider: Luis Felipe Crowley MD 76 YOM with past medical history of: COPD, CAD, Afib (on Dabigatran), ICM with HFrEF (EF 40-45% 07/08), CAD, Mitral Regurge, HLD, GERD, FE deficient anemia, bare metal stents to RCA and LAD (2001), STEMI 2006- stents to LAD DX and proximal RCA, DM II. Patient brought to the EMD today following collapse at home with striking the back of his head. Reports that started CPR on seen and EMS was activated. He received 2 defibrillations, was intubated, and required some (2 times) push dose epinephrine en route. states that he was outside using the snowblower and she seen him turn the snowblower and then collapse. She went over to him and noted that he had agonal respirations and was unresponsive and dusky in color. She removed his dentures and started CPR for what she felt was 5 minutes and then went in to get her cell phone. She called 911 and went back to doing CPR until EMS showed up. She confirms that he got 2 shocks for what was reported as V-Tach. She did not see him awaken following this or move any of his extremities and no other response other than agonal breathing. He arrived in the EMD where evaluation was performed by EMD and laborer road was notified. He had CXR performed and CT scan of cervical spine and head performed. Patient is en route to can labeler. Patient follows with Dr. Quintero for cardiology. Following Cardiac intervention/evaluation patient to ICU. He remains with laceration to back of his head that will need primary closure and cleansing. Allergies Allergy/AdvReac Type Severity Reaction Status Date / Time moxifloxacin Allergy Intermediate Rash Verified 07/27/21 14:02 Iodinated Contrast Media Allergy Unknown RASH Verified 07/27/21 14:02 meloxicam Allergy Unknown interacts Verified 07/27/21 14:02 with glucose readings and Lasix simvastatin Allergy Unknown rash Verified 08/23/21 17:04 spironolactone Allergy Unknown RASH Verified 07/27/21 14:02 niacin AdvReac Unknown red flush Verified 07/27/21 14:02 Home Medications Medication Instructions Recorded Confirmed Type aspirin 81 mg tablet,delayed 81 mg PO QAM 04/02/19 08/23/21 History release cholecalciferol (vitamin D3) 25 1,000 units PO QAM 04/02/19 08/23/21 History mcg (1,000 unit) capsule coenzyme Q10 100 mg capsule (Co 100 mg PO QAM 04/02/19 08/23/21 History Q-10) dabigatran etexilate 150 mg 150 mg PO BID 04/02/19 08/23/21 History capsule (Pradaxa) docusate sodium 100 mg capsule 100 mg PO BID 04/02/19 08/23/21 History (Colace) esomeprazole magnesium 40 mg 40 mg PO QAM cap 04/02/19 08/23/21 History capsule,delayed release (Nexium) ferrous sulfate 325 mg (65 mg 325 mg PO QDD tab 04/02/19 08/23/21 History iron) tablet,delayed release metformin 500 mg tablet 500 mg PO BID 04/02/19 08/23/21 History multivitamin 1 tab PO QAM 04/02/19 08/23/21 History nebivolol 10 mg tablet (Bystolic) 10 mg PO QDD 04/02/19 08/23/21 History nitroglycerin 0.4 mg sublingual 0.4 mg SL UD PRN 04/02/19 08/23/21 History tablet omega 5-vac-ero-fish oil 1,000 mg 1 cap PO BID 04/02/19 08/23/21 History (120 mg-180 mg) capsule (Fish Oil) potassium chloride 20 mEq 20 meq PO BID 04/02/19 08/23/21 History tablet,extended release acetaminophen 500 mg capsule 1,000 mg PO Q6H PRN 02/12/20 08/23/21 History Saccharomyces boulardii 250 mg 250 mg PO HS cap 06/28/21 08/23/21 History capsule (Daily Probiotic (S. boulardii)) ascorbate calcium (vitamin C) 500 500 mg PO DAILY 06/28/21 08/23/21 History mg tablet triamcinolone acetonide 55 mcg 2 spray INTRANASAL DAILY 06/28/21 08/23/21 History nasal spray aerosol (Nasacort) zinc gluconate 30 mg tablet 30 mg PO DAILY 06/28/21 08/23/21 History sacubitril 24 mg-valsartan 26 mg 1 tab PO BID #180 tab 07/14/21 08/23/21 Rx tablet (Entresto) Flutter Valve #1 ea 07/17/21 08/23/21 Rx amino acids (Amino Acid) 2 cap PO BIDM cap 07/17/21 08/23/21 History furosemide 40 mg tablet (Lasix) 40 mg PO BID #180 tab 07/24/21 08/23/21 Rx umeclidinium 62.5 mcg-vilanterol 1 inh INHALATION DAILY 07/27/21 08/23/21 History 25 mcg/actuation powdr for inhalation (Anoro Ellipta) Dph Tabs 1 tab PO BID 08/23/21 08/23/21 History magnesium chloride 71.5 mg 71.5 mg PO DAILY 08/23/21 08/23/21 History (magnesium chloride) tablet,delayed release (Slow-Mag) Past Med/Surg History Medical History Acid reflux Acute electrocardiogram changes Diabetes Dyslipidemia High cholesterol WELL CONTROLLED WITH MEDICATION History of kidney stones History of WI (myocardial infarction) X2 - 2001 AND 2004 HTN (hypertension) WELL CONTROLLED WITH MEDICATION Ischemic cardiomyopathy Old inferior wall myocardial infarction Presence of bare metal stent in right coronary artery Surgical History History of cardiac cath X2 History of colonoscopy History of heart artery stent TOTAL OF 3 - FIRST WI X 2, SECOND WI X 1 History of hernia repair LEFT X1, RIGHT X1 History of surgery ANAL ABCESS History of total hip replacement RIGHT Family History Other Family history of diabetes mellitus in brother Social History Smoking Status: Former smoker Tobacco Type: Cigarettes packs per day: 1; Years Smoked: 30; Second Hand Exposure: No; Do You Dip or Chew Tobacco: No; Tobacco Cessation Education Requested by Patient: No Hx Alcohol Use: No Hx Substance Use: No Preferred Language: Kiswahili Communication Ability: unable d/t Communication Ability Comment: unable d/t condition Mill Supervisor Required: No Beliefs That Will Affect Care: None Current Living Situation: Spouse Other Information That Helps Us Care for You: No Feels Safe at Home: Yes Assistive Devices: Denture - Upper, Denture - Lower and Glasses Review of Systems Review of Systems: REVIEW OF SYSTEMS: ROS obtained from as patient is currently unresponsive and intubated Constitutional: No fever, sweats or chills Eyes: No diplopia, no worsening or blurred vision ENT: (+) dentures, normal hearing, no trouble swallowing Respiratory: No cough, sputum, dyspnea at rest or on exertion Cardiovascular: (+) leg swelling, No chest pain, tightness or palpitations Abdomen: No pain, nausea, vomiting, diarrhea or constipation Musculoskeletal: No joint pain, calf pain, swelling Neurologic: No weakness, numbness/tingling, or balance problems Psychiatric: No anxiety or depression Skin: No rash or itch Physical Exam Physical Exam: PHYSICAL EXAM: General: Intubated Head: posterior scalp laceration with hematoma Neuro: GCS 3T, Unresponsive, pupils currently 3 non-reactive bilaterally, no withdraw or localization to deep pain, no cough with suctioning and no spontaneous respirations- apnea alarm trigger. Chest: equal rise and fall of the chest, no accessory muscle use, no heaves or thrills, Clear to auscultation, on room air, Cardiac: Regular rate and rhythm, telemetry reviewed- afib, skin warm dry, cap refill <3 seconds, peripheral pulses +2, 2+ edema to bilateral lower legs, pulses weak, skin cold, grade II systolic murmur GI: NABS x 4 quadrants, soft, nontender to palpation, : Tabares to gravity, draining rose urine Psych: Normal mood and affect Skin: varicosities to lower extremity,~3x2 cm laceration to back of head, Results & Data Results & Data ([facility]) Laboratory Results Abnormal lab results 08/23/21 08/23/21 Range/Units 16:15 16:15 WBC 10.97 H (4.8-10.8) K/uL RBC 4.27 L (4.7-6.1) M/uL Hgb 13.1 L (14.0-18.0) g/dL Hct 40.4 L (42-52) % RDW Std Deviation 47.2 H (36.4-46.3) fL MPV 11.0 H (7.4-10.4) fL Neut # (Auto) 7.12 H (1.4-6.5) K/uL [place] # (Auto) 0.92 H (0.11-0.59) K/uL Eos # (Auto) 0.59 H (0-0.5) K/uL Immature Gran # (Auto) 0.28 H (0.00-0.02) K/uL Anion Gap 13 H (3-11) Glucose 214 H (70-99(Fasting)) mg/dl AST 59 H (13-39) U/L Diagnostic Findings Chest X-Ray 08/23/21 16:03 XR chest 1V portable CLINICAL HISTORY: Chest Pain. COMPARISON STUDY: 04/04/2021 TECHNIQUE: 1 view of the chest FINDINGS: Single frontal view of the chest demonstrates the heart size to be enlarged. There has been placement of an endotracheal tube with its tip just past the thoracic inlet, approximately 5 cm above the lorena. There is evidence for central vascular congestion and mild interstitial edema characteristic of congestive heart failure. The lungs are clear of alveolar opacities. There is no evidence for pleural effusion. There is no acute osseous pathology. IMPRESSION: 1. Central vascular congestion and mild interstitial edema characteristic of congestive heart failure. 2. Tip of the endotracheal tube just past the thoracic inlet, approximately 5 cm above the lorena. ACT 112: Negative or not required by law. Electronically signed by: Perez Aguilar M.D. 08/23/2021 4:[address] 08/23/21 16:22 CT cervical spine wo con CLINICAL HISTORY: fall TECHNIQUE: Multidetector row helical CT of the cervical spine was performed without administration of intravenous contrast. Coronal and sagittal reformations were obtained. Automated dose lowering techniques and/or adjustment according to patient size were utilized for this exam. Comparison: None available at the time of this dictation. FINDINGS: No acute fractures or subluxations are identified. Degenerative changes are seen in the visualized spine. The alignment is normal. Soft tissues are unremarkable. IMPRESSION: Degenerative changes without evidence of acute bony injury. ACT 112: Negative or not required by law. Electronically signed by: Manuel Villalpando M.D. 08/23/2021 4:[address] 08/23/21 16:22 CT head/brain wo con CLINICAL HISTORY: fall Technique: Contiguous axial CT images of the head were acquired from the base of the skull to the vertex without intravenous contrast administration. Images were viewed in brain, subdural and bone windows. Automated dose lowering techniques and/or adjustment according to patient size were utilized for this exam. Comparison: None available at the time of this dictation. Findings: The ventricles, basal cisterns, and cerebral sulci are normal. There is no acute intracranial hemorrhage or evidence of acute territorial infarction. Neither mass effect, shift of the midline structures, nor abnormal extra-axial fluid collections are shown. Nasal turbinate and ethmoid sinus thickening is noted. The orbits appear normal. There are no acute fractures of the calvaria or scalp swelling. Impression: No acute intracranial hemorrhage, no evidence of acute territorial infarction or other acute intracranial disease process. Soft tissue thickening in the nasal turbinates and ethmoid sinuses likely represents chronic inflammatory process. ACT 112: Negative or not required by law. Electronically signed by: Manuel Villalpando M.D. 08/23/2021 4:47 PM Medications Administered Discontinued Medications Famotidine (Pepcid 20mg Iv Push) 20 mg in 5 mls @ 2.5 mls/min IV NOW STA Stop: 08/23/21 16:46 Last Admin: 08/23/21 17:02 Dose: 2.5 mls/min Documented by: [id number] Miscellaneous (Rapid Sequence Induction Bag) Confirm Administered Dose 1 ea .ROUTE .STK-MED ONE Stop: 08/23/21 16:05 Last Admin: 08/23/21 16:37 Dose: 1 ea Documented by: [id number] ECG Additional Comments: AFIB with RBBB- ECG on arrival to ICU Code Status & VTE Plan Code Status CODE: DNR/DNI VTE: SCDS, chemoprophy defer to ICU following interventions Supervising Physician Co-Signing Physician Notes I supervised CINDY Stapleton on the care of this patient. I examined the patient independently of him. The plan is as written in his note except for any following changes/exceptions: None Patient collapsed while using order worker. initiated CPR and called EMS. EMS delivered 2 shocks with ROSC somewhere between 10 - 20 minutes. In can labeler, he was found to have occluded RCA with successful PCI. Presently on Arctic protocol. No sedation being used at this time, but no responses to verbal or physical stimulus. Plan for EEG and/or MRI tomorrow with family deciding on status at that point. PG Care Time/CCT Total # of Minutes Spent Total Time Spent with Patient: Total time spent is greater than 50% in coordination of care (as documented) at patient's floor/unit and/or counseling patient: Coding Level of Care Code 78513 Initial Inpt Care Lvl 3 Diagnoses Cardiac arrest I46.9 CAD (coronary artery disease) I25.10 COPD (chronic obstructive pulmonary disease) J44.9 Dyslipidemia E78.5 Diabetes E11.9 Atrial fibrillation, permanent I48.21 Hypertension, essential I10 Laceration of head S01.91XA Ischemic cardiomyopathy I25.5
[2021-08-23] MEDS ORDERED: FAMOTIDINE 20MG IV PUSH 20 MG/5 ML SYR IV STA (16:45)
--- NOTE | 2021-08-23 16:48 | CT Scan Report ---
CT head/brain wo con CLINICAL HISTORY: fall Technique: Contiguous axial CT images of the head were acquired from the base of the skull to the karen rizwana without intravenous contrast administration. Images were viewed in brain, subdural and bone [facility]. Automated dose lowering techniques and/or adjustment according to patient size were utilized for this exam. Comparison: None available at the time of this dictation. Findings: The ventricles, basal cisterns, and cerebral sulci are normal. There is no acute intracranial hemorrh age or evidence of acute territorial infarction. Neither mass effect, shift of the midline structures , nor abnormal extra-axial fluid collections are shown. Nasal turbinate and ethmoid sinus thickening is noted. The orbits appear normal. There are no acute fractures of the calvaria or scalp swelling. Impression: No acute intracranial hemorrhage, no evidence of acute territorial infarction or other acute intracra nial disease process. Soft tissue thickening in the nasal turbinates and ethmoid sinuses likely repre sents chronic inflammatory process. ACT 112: Negative or not required by law. Electronically signed by: Manuel Villalpando M.D. 08/23/2021 4:47 PM
--- NOTE | 2021-08-23 16:50 | CT Scan Report ---
CT cervical spine wo con CLINICAL HISTORY: fall TECHNIQUE: Multidetector row helical CT of the cervical spine was performed without administration of intravenous contrast. Coronal and sagittal reformations were obtained. Automated dose lowering techn iques and/or adjustment according to patient size were utilized for this exam. Comparison: None available at the time of this dictation. FINDINGS: No acute fractures or subluxations are identified. Degenerative changes are seen in the visualized sp ine. The alignment is normal. Soft tissues are unremarkable. IMPRESSION: Degenerative changes without evidence of acute bony injury. ACT 112: Negative or not required by law. Electronically signed by: Manuel Villalpando M.D. 08/23/2021 4:48 PM
--- NOTE | 2021-08-23 16:54 | Emergency Department Note ---
Impression & Plan Cardiac arrest, AMS (altered mental status), Unresponsive, Respiratory failure ED Provider Note NAME: SHANTAL MCCARTHY JR AGE: 76 SEX: M : 1945 ARRIVES VIA: Ambulance INFORMANT: Patient ED PROVIDER(S): Eddie Palomares DO CHIEF COMPLAINT: Cardiac arrest HPI: Patient is a 76-year-old male with a past medical history of 2 previous stents who was out snow-blowing. was watching him from the window. She saw him collapse. She went outside and noticed that he was not breathing and checked for pulse. He had no pulse and she started CPR. She is a retired nurse. She stopped compressions to go to call for EMS but then returned quickly and continued CPR. There is a 20-minute wait for EMSs arrival. Once they arrived he was shocked twice via AED and had return of pulses. He was given 2 doses of push dose epi per EMS. Patient was brought in being bagged. ROS: See above HPI for pertinent positives & negatives. A total of 10 systems reviewed and were otherwise negative. PAST MEDICAL HISTORY:See Below PAST SURGICAL HISTORY:See Below FAMILY HISTORY:See Below SOCIAL HISTORY:See Below HOME MEDICATIONS:See Below ALLERGIES:See Below VITALS:See Below PHYSICAL EXAMINATION: GENERAL: Lying in bed unresponsive with agonal breathing HEAD: Laceration to the back posterior scalp EYE EXAM: Pupils pinpoint and unreactive OROPHARYNX: BVM in place NECK: supple, no nuchal rigidity, no adenopathy, non-tender LUNGS: Diminished bilaterally. Normal chest wall mechanics HEART: no murmurs, S1 normal and S2 normal ABDOMEN: abdomen soft, non-tender, normo-active bowel sounds, no masses, no rebound or guarding. UPPER EXTREMITIES: upper extremities are grossly normal. LOWER EXTREMITIES: No pitting edema. NEURO EXAM: GCS: 3T MEDICAL DECISION MAKING: Patient is a 76-year-old male who collapsed while snowblowing. immediately started CPR. She is a retired nurse. He was shocked twice in the field and brought in in A. fib with a perfusing rhythm. He was unresponsive. He was intubated by myself in the ER. IV was established blood work was obtained and labs show mild leukocytosis 10.9 thousand. No significant anemia. BMP along with LFTs was unremarkable. Troponin was elevated 0.05. Lipase was unremarkable. Covid was negative. Chest x-ray with ET tube in good position. CT head and neck was performed due to the fall and showed no acute bleeds or fractures. Had a laceration on the back of his head but did not want to hold up the [facility] [employer] [facility] as there is no active bleeding I did notify Teddy who will be taking care of him after the [employer] [facility] and he will repair this and was comfortable with this. I called the heart alert just after receiving medical command on this gentleman. Patient was taken emergently to the [facility] after intubation and work-up in the ER and going straight to CAT scan and then to the [facility] [employer] [facility]. I did update his as well. Triage Nursing notes reviewed. Limited review of prior medical records performed Vital Signs: reviewed and remarkable for no significant abnormalities Differential diagnosis: Differential diagnoses includes but is not limited to acute coronary syndrome, myocardial infarction, pericarditis, pulmonary embolus, aortic dissection, pneumonia, pneumothorax, musculoskeletal, shingles, esophageal. ER treatment provided: See below Diagnostics interpreted by me: ECG: EKG today showed A. fib with a rate in the 80s There is right bundle branch block Nonspecific ST wave changes in the lateral leads Cardiac Monitoring: An order was placed for continuous cardiac monitoring. The monitor shows a rate of 89 with Afib rhythm. Laboratory studies: As stated above and show below. Imaging studies: Portable AP upright 1 view of the chest shows ET tube above lorena with infiltrates bilaterally Consultation(s): Discussed with Teddy from [facility] service in regards to wound on the back of the head which was not repaired in the ER as he was intubated and taken emergently to CAT scan and interventional cardiology was awaiting and he was taken right up to the [facility] following CT scan. Procedures: EM PROCEDURE NOTE - Endotracheal Intubation PROCEDURE NOTE: Informed consent was not obtained by the patient. Verify Correct Patient: yes Procedure: Endotracheal intubation Indication: Respiratory failure The procedure was done emergently. Description of the Procedure: The patient was seen and properly identified. The patient was pre-oxygenated and intubated after rapid sequence induction with meds: Ketamine and rocuronium intubation was performed using a glide scope 3 and a 7.5 cuffed endotracheal tube. The tube was visualized going through the cords and secured with the 22cm mitchell at the lips. The patient had good bilateral breath sounds in the axillae with good chest rise. Proper ET tube placement was confirmed by end tidal CO2 detector. The patient tolerated the procedure well. Critical Care: I have personally spent 31 minutes of critical care time in the direct management of this patient. This includes bedside care, interpretation of diagnostic studies, and testing, discussion with consultants, patient, and family members, and other required patient management activities. This 31 minutes is in excess of all separately billable procedures. Past Med/Surg History Medical History Acid reflux Acute electrocardiogram changes Diabetes Dyslipidemia High cholesterol WELL CONTROLLED WITH MEDICATION History of kidney stones History of OK (myocardial infarction) X2 - 2001 AND 2004 HTN (hypertension) WELL CONTROLLED WITH MEDICATION Ischemic cardiomyopathy Old inferior wall myocardial infarction Presence of bare metal stent in right coronary artery Surgical History History of cardiac cath X2 History of colonoscopy History of heart artery stent TOTAL OF 3 - FIRST OK X 2, SECOND OK X 1 History of hernia repair LEFT X1, RIGHT X1 History of surgery ANAL ABCESS History of total hip replacement RIGHT Family History Other Family history of diabetes mellitus in brother Social History Smoking Status: Unknown if ever smoked Tobacco Type: Cigarettes packs per day: 1; Years Smoked: 30; Hx Alcohol Use: No Hx Substance Use: No Preferred Language: Nepali Communication Ability: 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 Beliefs That Will Affect Care: None Current Living Situation: Spouse Feels Safe at Home: Yes Assistive Devices: Denture - Upper, Denture - Lower and Glasses Allergies Allergies Allergy/AdvReac Type Severity Reaction Status Date / Time moxifloxacin Allergy Intermediate Rash Verified 07/27/21 14:02 Iodinated Contrast Media Allergy Unknown RASH Verified 07/27/21 14:02 meloxicam Allergy Unknown interacts Verified 07/27/21 14:02 with glucose readings and Lasix simvastatin Allergy Unknown rash Verified 08/23/21 17:04 spironolactone Allergy Unknown RASH Verified 07/27/21 14:02 niacin AdvReac Unknown red flush Verified 07/27/21 14:02 Home Meds Home Medications Medication Instructions Recorded Confirmed aspirin 81 mg tablet,delayed 81 mg PO QAM 04/02/19 08/23/21 release cholecalciferol (vitamin D3) 25 1,000 units PO QAM 04/02/19 08/23/21 mcg (1,000 unit) capsule coenzyme Q10 100 mg capsule (Co 100 mg PO QAM 04/02/19 08/23/21 Q-10) dabigatran etexilate 150 mg 150 mg PO BID 04/02/19 08/23/21 capsule (Pradaxa) docusate sodium 100 mg capsule 100 mg PO BID 04/02/19 08/23/21 (Colace) esomeprazole magnesium 40 mg 40 mg PO QAM cap 04/02/19 08/23/21 capsule,delayed release (Nexium) ferrous sulfate 325 mg (65 mg 325 mg PO QDD tab 04/02/19 08/23/21 iron) tablet,delayed release metformin 500 mg tablet 500 mg PO BID 04/02/19 08/23/21 multivitamin 1 tab PO QAM 04/02/19 08/23/21 nebivolol 10 mg tablet (Bystolic) 10 mg PO QDD 04/02/19 08/23/21 nitroglycerin 0.4 mg sublingual 0.4 mg SL UD PRN 04/02/19 08/23/21 tablet omega 0-wwr-imc-fish oil 1,000 mg 1 cap PO BID 04/02/19 08/23/21 (120 mg-180 mg) capsule (Fish Oil) potassium chloride 20 mEq 20 meq PO BID 04/02/19 08/23/21 tablet,extended release acetaminophen 500 mg capsule 1,000 mg PO Q6H PRN 02/12/20 08/23/21 Saccharomyces boulardii 250 mg 250 mg PO HS cap 06/28/21 08/23/21 capsule (Daily Probiotic (S. boulardii)) ascorbate calcium (vitamin C) 500 500 mg PO DAILY 06/28/21 08/23/21 mg tablet triamcinolone acetonide 55 mcg 2 spray INTRANASAL DAILY 06/28/21 08/23/21 nasal spray aerosol (Nasacort) zinc gluconate 30 mg tablet 30 mg PO DAILY 06/28/21 08/23/21 amino acids (Amino Acid) 2 cap PO BIDM cap 07/17/21 08/23/21 umeclidinium 62.5 mcg-vilanterol 1 inh INHALATION DAILY 07/27/21 08/23/21 25 mcg/actuation powdr for inhalation (Anoro Ellipta) Dph Tabs 1 tab PO BID 08/23/21 08/23/21 magnesium chloride 71.5 mg 71.5 mg PO DAILY 08/23/21 08/23/21 (magnesium chloride) tablet,delayed release (Slow-Mag) Previous Rx's Medication Instructions Recorded sacubitril 24 mg-valsartan 26 mg 1 tab PO BID #180 tab 07/14/21 tablet (Entresto) Flutter Valve #1 ea 07/17/21 furosemide 40 mg tablet (Lasix) 40 mg PO BID #180 tab 07/24/21 Results & Data (ED) Vital Signs Vital Signs - 24 hr 08/23/21 16:20 08/23/21 16:21 08/23/21 16:28 Temperature 31.5 C L Pulse Rate 126 H 117 H Pulse Rate from SpO2 Sensor 118 H 121 H Respiratory Rate 19 24 Blood Pressure 108/70 Blood Pressure Mean 82 Pulse Oximetry 100 100 Sepsis Recent Fever Within 48 Hours No Sepsis New/Unexplained Change in Mental Status N/A Sepsis Action Taken by Nursing No Action Required Laboratory Data Result diagrams: 08/23/21 16:15 08/23/21 16:15 Lab Results 08/23/21 08/23/21 08/23/21 Range/Units 16:15 16:15 16:28 WBC 10.97 H (4.8-10.8) K/uL RBC 4.27 L (4.7-6.1) M/uL Hgb 13.1 L (14.0-18.0) g/dL Hct 40.4 L (42-52) % MCV 94.6 (80-100) fL MCH 30.7 (25-34) pg MCHC 32.4 (32-36) g/dL RDW Std Deviation 47.2 H (36.4-46.3) fL RDW Coeff of Veronica 13.7 (11.5-14.5) % Plt Count 297 (130-400) K/uL MPV 11.0 H (7.4-10.4) fL Immature Gran % (Auto) 2.6 % Neut % (Auto) 64.8 % Lymph % (Auto) 18.4 % Todd % (Auto) 8.4 % Eos % (Auto) 5.4 % Baso % (Auto) 0.4 % Neut # (Auto) 7.12 H (1.4-6.5) K/uL Lymph # (Auto) 2.02 (1.2-3.4) K/uL Todd # (Auto) 0.92 H (0.11-0.59) K/uL Eos # (Auto) 0.59 H (0-0.5) K/uL Baso # (Auto) 0.04 (0-0.2) K/uL Immature Gran # (Auto) 0.28 H (0.00-0.02) K/uL Sodium 137 (136-145) mmol/L Potassium 4.1 (3.5-5.1) mmol/L Chloride 102 (98-107) mmol/L Carbon Dioxide 22 (21-32) mmol/L Anion Gap 13 H (3-11) BUN 18 (6-23) mg/dl Creatinine 1.11 (0.6-1.4) mg/dl Est Cr Clr Drug Dosing Not Reportable Est GFR ( Amer) 74.9 ml/min Est GFR (Non-Af Amer) 64.6 ml/min BUN/Creatinine Ratio 16.2 (10-20) Glucose 214 H (70-99(Fasting)) mg/dl Calcium 8.7 (8.5-10.1) mg/dl Total Bilirubin 0.5 (0.2-1.0) mg/dl AST 59 H (13-39) U/L ALT 33 (7-52) U/L Alkaline Phosphatase 82 (34-104) U/L Troponin I 0.05 H* (0-0.04) ng/ml Total Protein 6.3 (6.0-8.3) gm/dl Albumin 3.4 (3.4-5.0) gm/dl Globulin 2.9 (2.5-4.0) gm/dl Albumin/Globulin Ratio 1.2 (0.9-2) Lipase 32 (11-82) U/L SARS-CoV-2, RNA, NAAT NEGATIVE (NEGATIVE) Administered Medications Midazolam HCl (Versed) 125 mg in 250 mls @ 2 mls/hr IV .Q96H [facility]; Protocol Stop: 09/22/21 17:14 Last Admin: 08/23/21 18:18 Dose: Not Given Documented by: [id number] Fentanyl Citrate (Fentanyl Citrate) 2,500 mcg in 250 mls @ 2.5 mls/hr IV .Q96H [facility]; Protocol Stop: 09/06/21 17:14 Last Admin: 08/23/21 18:18 Dose: Not Given Documented by: [id number] Norepinephrine Bitartrate (Levophed/D5w) 8 mg in 508 mls @ 14.859 mls/hr IV .Q24H [facility]; Protocol Stop: 09/22/21 17:14 Last Admin: 08/23/21 18:18 Dose: Not Given Documented by: [id number] Discontinued Medications Famotidine (Pepcid 20mg Iv Push) 20 mg in 5 mls @ 2.5 mls/min IV NOW STA Stop: 08/23/21 16:46 Last Admin: 08/23/21 17:02 Dose: 2.5 mls/min Documented by: [id number] Midazolam HCl (Midazolam Hcl 1 Mg/Ml 2ml Vial) 2 mg IV ONCE STA Stop: 08/23/21 17:07 Last Admin: 08/23/21 17:35 Dose: Not Given Documented by: [id number] Miscellaneous (Rapid Sequence Induction Bag) Confirm Administered Dose 1 ea .ROUTE .STK-MED ONE Stop: 08/23/21 16:05 Last Admin: 08/23/21 16:37 Dose: 1 ea Documented by: [id number] Norepinephrine Bitartrate (Norepinephrine/D5w 8 Mg/508 Ml) Confirm Administered Dose 8 mg IV .STK-MED ONE Stop: 08/23/21 16:05 Last Admin: 08/23/21 17:11 Dose: 8 mg Documented by: [id number] Imaging Data Radiologist's Impression: Chest X-Ray 08/23/21 16:03 XR chest 1V portable CLINICAL HISTORY: Chest Pain. COMPARISON STUDY: 04/04/2021 TECHNIQUE: 1 view of the chest FINDINGS: Single frontal view of the chest demonstrates the heart size to be enlarged. There has been placement of an endotracheal tube with its tip just past the thoracic inlet, approximately 5 cm above the lorena. There is evidence for central vascular congestion and mild interstitial edema characteristic of congestive heart failure. The lungs are clear of alveolar opacities. There is no evidence for pleural effusion. There is no acute osseous pathology. IMPRESSION: 1. Central vascular congestion and mild interstitial edema characteristic of congestive heart failure. 2. Tip of the endotracheal tube just past the thoracic inlet, approximately 5 cm above the lorena. ACT 112: Negative or not required by law. Electronically signed by: Perez Aguilar M.D. 08/23/2021 4:[address] 08/23/21 16:22 CT cervical spine wo con CLINICAL HISTORY: fall TECHNIQUE: Multidetector row helical CT of the cervical spine was performed without administration of intravenous contrast. Coronal and sagittal reformatio ns were obtained. Automated dose lowering techniques and/or adjustment according to patient size were utilized for this exam. Comparison: None available at the time of this dictation. FINDINGS: No acute fractures or subluxations are identified. Degenerative changes are seen in the visualized spine. The alignment is normal. Soft tissues are unremarkable. IMPRESSION: Degenerative changes without evidence of acute bony injury. ACT 112: Negative or not required by law. Electronically signed by: Manuel Villalpando M.D. 08/23/2021 4:[address] 08/23/21 16:22 CT head/brain wo con CLINICAL HISTORY: fall Technique: Contiguous axial CT images of the head were acquired from the base of the skull to the vertex without intravenous contrast administration. Images were viewed in brain, subdural and bone windows. Automated dose lowering techniques and/or adjustment according to patient size were utilized for this exam. Comparison: None available at the time of this dictation. Findings: The ventricles, basal cisterns, and cerebral sulci are normal. There is no acute intracranial hemorrhage or evidence of acute territorial infarction. Neither mass effect, shift of the midline structures, nor abnormal extra-axial fluid collections are shown. Nasal turbinate and ethmoid sinus thickening is noted. The orbits appear normal. There are no acute fractures of the calvaria or scalp swelling. Impression: No acute intracranial hemorrhage, no evidence of acute territorial infarction or other acute intracranial disease process. Soft tissue thickening in the nasal turbinates and ethmoid sinuses likely represents chronic inflammatory process. ACT 112: Negative or not required by law. Electronically signed by: Manuel Villalpando M.D. 08/23/2021 4:47 PM Discharge Plan Visit Data Chief Complaint: Heart Alert Stated Complaint: POST CARDIAC ARREST ED Provider: Eddie Palomares Discharge Problem: Cardiac arrest, AMS (altered mental status), Unresponsive, Respiratory failure Patient Disposition: Admitted As Inpatient Discharge Instructions Interventions: ED Discharge Assessment Last Done: 08/23/21 16:38 Discharge Problem: AMS (altered mental status) Qualifiers: Altered mental status type: unspecified Qualified Code(s): R41.82 - Altered mental status, unspecified Respiratory failure Qualifiers: Chronicity: acute Respiratory failure complication: hypoxia Qualified Code(s): J96.01 - Acute respiratory failure with hypoxia
[2021-08-23 16:55] LABS: Alanine Aminotransferase 33 U/L (7-52); Albumin Globulin Ratio 1.2 (0.9-2); Albumin Level 3.4 gm/dl (3.4-5.0); Alkaline Phosphatase 82 U/L (34-104); Anion Gap 13 (3-11); Aspartate Aminotransferase 59 U/L (13-39); BUN Creatinine Ratio 16.2 (10-20); Bilirubin,Total 0.5 mg/dl (0.2-1.0); Blood Urea Nitrogen 18 mg/dl (6-23); Calcium 8.7 mg/dl (8.5-10.1); Carbon Dioxide 22 mmol/L (21-32); Chloride 102 mmol/L (98-107); Est GFR (African American) 74.9 ml/min; Est GFR (Non-African American) 64.6 ml/min; Globulin 2.9 gm/dl (2.5-4.0); Glucose 214 mg/dl (70-99(Fasting)); Lipase 32 U/L (11-82); Potassium 4.1 mmol/L (3.5-5.1); Sodium 137 mmol/L (136-145); Total Protein 6.3 gm/dl (6.0-8.3)
[2021-08-23] MEDS ORDERED: MIDAZOLAM HCL 1 MG/ML 2ML VIAL IV STA (17:06)
[2021-08-23] MEDS ORDERED: STAT IV Infusion **Titration per Protocol STA (17:06)
[2021-08-23] MEDS ORDERED: MIDAZOLAM BOLUS FROM BAG IV PRN (17:06)
[2021-08-23] MEDS ORDERED: PROPOFOL BOLUS FROM BAG IV PRN (17:06)
--- NOTE | 2021-08-23 17:08 | Critical Care Consultation ---
Date of Consultation August 23, 2021 Assessment & Plan (1) Cardiac arrest: Impression: 76-year-old male with significant coronary history status post out of hospital witnessed VT/V. fib arrest with return of spontaneous circulation after CPR and defibrillation. He is currently in the [facility] undergoing cardiac catheterization for presumed acute coronary syndrome. Recommendations: 1. Neurologic: At risk for anoxic brain injury. CT of the head unrevealing for initial bleed but too early to demonstrate anoxia. Will complete 24 hours of therapeutic hypothermia per AHA guidelines and then rewarm and reassess. May require repeat neurological evaluation and or additional imaging depending on clinical result. Continue sedation with propofol fentanyl and Versed. 2. Cardiovascular: Out of hospital cardiac arrest. Suspect due to ACS. Management per cardiology. Will defer antiarrhythmics to them. Vasopressors with norepinephrine as needed. 3. Pulmonary: The patient has a history of obstructive lung disease. Continue mechanical ventilation for now. Await repeat blood gas. Will adjust ventilator to maintain normal acid-base status and adequate gas exchange. 4. Renal: Awaiting electrolyte panel. Patient will be placed on ICU replacement protocol. 5. Endocrine: Glycemic control per ICU protocol. 6. ID: No current issues. The patient is at risk for aspiration pneumonia but will be followed with serial chest x-ray. Will obtain cultures if needed. 7. Heme-onc: No current issues. 8. GI: N.p.o. for now. PPI in place. 9. Prophylaxis: Subcu heparin for DVT prophylaxis with SCDs. The patient's overall prognosis is guarded. The hospitalist discussed status with the patient's . She requests no additional ACLS interventions if the patient should suffer additional cardiac arrest which I think is reasonable in light of his potential neurological outcome. The patient is critically ill at this point time. A total of 62 minutes in critical care time was spent in evaluation management stabilization of this critical patient. History of Present Illness Attending Physician: Ayo Villarreal MD, PhD History of Present Illness Asked by hospitalist to assist in evaluation and management of this patient with out of hospital witnessed VT/VF cardiac arrest. History is obtained from discussion with the hospitalist, field sales representative, and ER. The patient is a 76-year-old male with a known history of coronary disease. He follows with Dr. Matute in the outpatient setting. He has a history of reduced ejection fraction. I follow the patient in the pulmonary clinic for COPD. Apparently the patient was out shoveling snow today. He collapsed. This was witnessed by his . She initiated bystander CPR after activating 911. Its unclear what his estimated total downtime was but it could have been anywhere between 10 and 20 minutes. When EMS arrived, the patient was found to be in either VF or VT. I do not have rhythm strips available to review. Shock was administered as well as epinephrine with return of spontaneous circulation. The patient was intubated in the field without medications. He is brought to the em ergency room. A heart alert was called. He was then taken urgently to the [facility]. I evaluated the patient prior to going to the [facility]. He had been sedated with ketamine and administered rocuronium so his neurological exam was unable to be performed. He was hypothermic on presentation which would suggest a fairly prolonged downtime. Allergies Allergy/AdvReac Type Severity Reaction Status Date / Time moxifloxacin Allergy Intermediate Rash Verified 07/27/21 14:02 Iodinated Contrast Media Allergy Unknown RASH Verified 07/27/21 14:02 meloxicam Allergy Unknown interacts Verified 07/27/21 14:02 with glucose readings and Lasix simvastatin Allergy Unknown rash Verified 08/23/21 17:04 spironolactone Allergy Unknown RASH Verified 07/27/21 14:02 niacin AdvReac Unknown red flush Verified 07/27/21 14:02 Home Medications Medication Instructions Recorded Confirmed Type aspirin 81 mg tablet,delayed 81 mg PO QAM 04/02/19 08/23/21 History release cholecalciferol (vitamin D3) 25 1,000 units PO QAM 04/02/19 08/23/21 History mcg (1,000 unit) capsule coenzyme Q10 100 mg capsule (Co 100 mg PO QAM 04/02/19 08/23/21 History Q-10) dabigatran etexilate 150 mg 150 mg PO BID 04/02/19 08/23/21 History capsule (Pradaxa) docusate sodium 100 mg capsule 100 mg PO BID 04/02/19 08/23/21 History (Colace) esomeprazole magnesium 40 mg 40 mg PO QAM cap 04/02/19 08/23/21 History capsule,delayed release (Nexium) ferrous sulfate 325 mg (65 mg 325 mg PO QDD tab 04/02/19 08/23/21 History iron) tablet,delayed release metformin 500 mg tablet 500 mg PO BID 04/02/19 08/23/21 History multivitamin 1 tab PO QAM 04/02/19 08/23/21 History nebivolol 10 mg tablet (Bystolic) 10 mg PO QDD 04/02/19 08/23/21 History nitroglycerin 0.4 mg sublingual 0.4 mg SL UD PRN 04/02/19 08/23/21 History tablet omega 9-sxw-[id number]-fish oil 1,000 mg 1 cap PO BID 04/02/19 08/23/21 History (120 mg-180 mg) capsule (Fish Oil) potassium chloride 20 mEq 20 meq PO BID 04/02/19 08/23/21 History tablet,extended release acetaminophen 500 mg capsule 1,000 mg PO Q6H PRN 02/12/20 08/23/21 History Saccharomyces boulardii 250 mg 250 mg PO HS cap 06/28/21 08/23/21 History capsule (Daily Probiotic (S. boulardii)) ascorbate calcium (vitamin C) 500 500 mg PO DAILY 06/28/21 08/23/21 History mg tablet triamcinolone acetonide 55 mcg 2 spray INTRANASAL DAILY 06/28/21 08/23/21 History nasal spray aerosol (Nasacort) zinc gluconate 30 mg tablet 30 mg PO DAILY 06/28/21 08/23/21 History sacubitril 24 mg-valsartan 26 mg 1 tab PO BID #180 tab 07/14/21 08/23/21 Rx tablet (Entresto) Flutter Valve #1 ea 07/17/21 08/23/21 Rx amino acids (Amino Acid) 2 cap PO BIDM cap 07/17/21 08/23/21 History furosemide 40 mg tablet (Lasix) 40 mg PO BID #180 tab 07/24/21 08/23/21 Rx umeclidinium 62.5 mcg-vilanterol 1 inh INHALATION DAILY 07/27/21 08/23/21 History 25 mcg/actuation powdr for inhalation (Anoro Ellipta) Dph Tabs 1 tab PO BID 08/23/21 08/23/21 History magnesium chloride 71.5 mg 71.5 mg PO DAILY 08/23/21 08/23/21 History (magnesium chloride) tablet,delayed release (Slow-Mag) Patient History Medical History Acid reflux Acute electrocardiogram changes Diabetes Dyslipidemia High cholesterol WELL CONTROLLED WITH MEDICATION History of kidney stones History of [place] (myocardial infarction) X2 - 2001 AND 2004 HTN (hypertension) WELL CONTROLLED WITH MEDICATION Ischemic cardiomyopathy Old inferior wall myocardial infarction Presence of bare metal stent in right coronary artery Surgical History History of cardiac cath X2 History of colonoscopy History of heart artery stent TOTAL OF 3 - FIRST [place] X 2, SECOND [place] X 1 History of hernia repair LEFT X1, RIGHT X1 History of surgery ANAL ABCESS History of total hip replacement RIGHT Family History Other Family history of diabetes mellitus in brother Social History Smoking Status: Unknown if ever smoked Tobacco Type: Cigarettes packs per day: 1; Years Smoked: 30; Hx Alcohol Use: No Hx Substance Use: No Preferred Language: Guamanian Communication Ability: Effective Meatman Required: No Beliefs That Will Affect Care: None Current Living Situation: Spouse Feels Safe at Home: Yes Assistive Devices: Denture - Upper, Denture - Lower and Glasses Review of Systems Review of Systems: Unobtainable due to reduced consciousness Physical Exam Constitutional: WD/WN, vitals as above Neck: trachea midline, no thyromegaly Respiratory: normal respiratory effort, lungs clear to auscultation Cardiovascular: RRR, no murmur, no edema Gastrointestinal (Abdomen): normal bowel sounds, soft, nontender, no hepatosplenomegaly Musculoskeletal: Extremities: extremities normal to inspection Skin: no rashes, warm and dry Neurologic: Nonfocal exam Lymphatic: no cervical lymphadenopathy Results & Data Results & Data ([facility]) Vital Signs (Past 12 Hours) Vital Signs Temp Pulse Resp BP Pulse Ox 08/23/21 16:21 31.5 C L 117 H 24 108/70 100 08/23/21 16:20 126 H 19 100 Critical Care Results & Data Vital Signs (Past 12 Hours) Vital Signs Temp Pulse Resp BP Pulse Ox 08/23/21 16:21 31.5 C L 117 H 24 108/70 100 08/23/21 16:20 126 H 19 100 Lab & Micro Results (Past 24 Hours) RBC 4.27 M/uL (4.7-6.1) L 08/23/21 WBC 10.97 K/uL (4.8-10.8) H 08/23/21 Hgb 13.1 g/dL (14.0-18.0) L 08/23/21 Hct 40.4 % (42-52) L 08/23/21 MCV 94.6 fL (80-100) 08/23/21 MCH 30.7 pg (25-34) 08/23/21 MCHC 32.4 g/dL (32-36) 08/23/21 RDW Standard Deviation 47.2 fL (36.4-46.3) H 08/23/21 RDW Coefficient of Variation 13.7 % (11.5-14.5) 08/23/21 Plt Count 297 K/uL (130-400) 08/23/21 MPV 11.0 fL (7.4-10.4) H 08/23/21 Neutrophils (%) (Auto) 64.8 % 08/23/21 Lymphocytes (%) (Auto) 18.4 % 08/23/21 Monocytes # (Auto) 0.92 K/uL (0.11-0.59) H 08/23/21 Eosinophils # (Auto) 0.59 K/uL (0-0.5) H 08/23/21 Immature Granulocyte % (Auto) 2.6 % 08/23/21 Neutrophils # (Auto) 7.12 K/uL (1.4-6.5) H 08/23/21 Lymphocytes # (Auto) 2.02 K/uL (1.2-3.4) 08/23/21 Monocytes # (Auto) 0.92 K/uL (0.11-0.59) H 08/23/21 Eosinophils # (Auto) 0.59 K/uL (0-0.5) H 08/23/21 Basophils # (Auto) 0.04 K/uL (0-0.2) 08/23/21 Immature Granulocyte # (Auto) 0.28 K/uL (0.00-0.02) H 08/23/21 Na 137 mmol/L (136-145) 08/23/21 K 4.1 mmol/L (3.5-5.1) 08/23/21 Cl 102 mmol/L (98-107) 08/23/21 CO2 22 mmol/L (21-32) 08/23/21 Anion Gap 13 (3-11) H 08/23/21 BUN 18 mg/dl (6-23) 08/23/21 Creatinine 1.11 mg/dl (0.6-1.4) 08/23/21 Estimated GFR ( Amer) 74.9 ml/min 08/23/21 Estimated GFR (Non-Af Amer) 64.6 ml/min 08/23/21 BUN/Creatinine Ratio 16.2 (10-20) 08/23/21 Glu 214 mg/dl (70-99(Fasting)) H 08/23/21 Ca 8.7 mg/dl (8.5-10.1) 08/23/21 Total Bilirubin 0.5 mg/dl (0.2-1.0) 08/23/21 AST 59 U/L (13-39) H 08/23/21 ALT 33 U/L (7-52) 08/23/21 Alkaline Phosphatase 82 U/L (34-104) 08/23/21 TP 6.3 gm/dl (6.0-8.3) 08/23/21 Albumin 3.4 gm/dl (3.4-5.0) 08/23/21 Globulin 2.9 gm/dl (2.5-4.0) 08/23/21 Albumin/Globulin Ratio 1.2 (0.9-2) 08/23/21 Calcium Level 8.7 mg/dl (8.5-10.1) 08/23/21 16:15 08/23/21 Diagnostic Findings (Past 24 Hours) Chest X-Ray 08/23/21 16:03 XR chest 1V portable CLINICAL HISTORY: Chest Pain. COMPARISON STUDY: 04/04/2021 TECHNIQUE: 1 view of the chest FINDINGS: Single frontal view of the chest demonstrates the heart size to be enlarged. There has been placement of an endotracheal tube with its tip just past the thoracic inlet, approximately 5 cm above the lorena. There is evidence for central vascular congestion and mild interstitial edema characteristic of congestive heart failure. The lungs are clear of alveolar opacities. There is no evidence for pleural effusion. There is no acute osseous pathology. IMPRESSION: 1. Central vascular congestion and mild interstitial edema characteristic of congestive heart failure. 2. Tip of the endotracheal tube just past the thoracic inlet, approximately 5 cm above the lorena. ACT 112: Negative or not required by law. Electronically signed by: Perez Aguilar M.D. 08/23/2021 4:[address] 08/23/21 16:22 CT cervical spine wo con CLINICAL HISTORY: fall TECHNIQUE: Multidetector row helical CT of the cervical spine was performed without administration of intravenous contrast. Coronal and sagittal ref ormations were obtained. Automated dose lowering techniques and/or adjustment according to patient size were utilized for this exam. Comparison: None available at the time of this dictation. FINDINGS: No acute fractures or subluxations are identified. Degenerative changes are seen in the visualized spine. The alignment is normal. Soft tissues are unremarkable. IMPRESSION: Degenerative changes without evidence of acute bony injury. ACT 112: Negative or not required by law. Electronically signed by: Manuel Villalpando M.D. 08/23/2021 4:[address] 08/23/21 16:22 CT head/brain wo con CLINICAL HISTORY: fall Technique: Contiguous axial CT images of the head were acquired from the base of the skull to the vertex without intravenous contrast administration. Images were viewed in brain, subdural and bone windows. Automated dose lowering techniques and/or adjustment according to patient size were utilized for this exam. Comparison: None available at the time of this dictation. Findings: The ventricles, basal cisterns, and cerebral sulci are normal. There is no acute intracranial hemorrhage or evidence of acute territorial infarction. Neither mass effect, shift of the midline structures, nor abnormal extra-axial fluid collections are shown. Nasal turbinate and ethmoid sinus thickening is noted. The orbits appear normal. There are no acute fractures of the calvaria or scalp swelling. Impression: No acute intracranial hemorrhage, no evidence of acute territorial infarction or other acute intracranial disease process. Soft tissue thickening in the nasal turbinates and ethmoid sinuses likely represents chronic inflammatory process. ACT 112: Negative or not required by law. Electronically signed by: Manuel Villalpando M.D. 08/23/2021 4:47 PM RT Ventilator Mngmt (Last Documented) Ventilator Ordered Settings Respiratory Rate 24 08/23/21 16:21 Ventilator - PT Measurements Respiratory Rate 24 Coding Level of Care Code Critical Care 1st 30-74 mins Diagnoses Cardiac arrest I46.9 Time Spent (min) 62
[2021-08-23 17:26] LABS: Troponin I 0.05 ng/ml (0-0.04)
--- NOTE | 2021-08-23 18:03 | Cardiac Catheterization ---
Cardiac Cath Procedure Full Procedure Date August 23, 2021 Pre-Procedure Diagnosis Pre-Procedure Diagnosis: Arrhythmia (Cardiac arrest, ventricular tachycardia) AUC Score AUC Score: 08 Post-Procedure Diagnosis Post-Procedure Diagnosis: Severe CAD and Successful PCI Procedure(s) Performed Procedure(s) Performed: Coronary Angiography, Drug Eluting Stent, Ultrasound Guided Vascular Access and Procedure (Right common femoral vein insertion of a therapeutic hypothermia catheter.) Apartment Groundskeeper Ayo Villarreal MD, PhD Estimated Blood Loss Estimated Blood Loss: 10 mL Medication(s) Medication(s): Lidocaine Ticagrelor Integrilin (double bolus, no drip) Heparin Martin-Synephrine (drip). Summary of Findings Patient was brought to the cardiac catheterization suite where he was shaved and prepped in a sterile fashion. He was already intubated and sedated. Soft tissues of the right groin were anesthetized using 10 mL of 1% Xylocaine. Using ultrasound for guidance (image saved in the permanent record) the right femoral artery was accessed and a 6 [place] femoral artery sheath was placed. All catheters were advanced and exchanged over a 0.035 J-tip wire. Left coronary angiography in orthogonal views with a 5 [place] JL4 diagnostic catheter. Right coronary angiography in orthogonal views with a 5 [place] JR4 diagnostic catheter. We decided to proceed with PCI of the RCA. ACT was checked. Patient had received 7000 units IV heparin. A 6 [place] JR4 guide catheter was used to engage the right coronary artery. Through this, a BMW reversal guidewire was advanced and positioned distally into the right PLB. The distal RCA ostial PLB lesion was predilated with a 2.5 x 12 mm trek balloon at 9 dany. This balloon was then deflated and pulled back into the proximal RCA where the 2 areas of concern were also predilated this time up to 20 dany. The balloon was then removed. We then attempted to pass a 2.5 x 15 mm drug-eluting stent across the distal lesion but because of calcification had difficulty crossing the lesion adequately. Therefore, the stent was removed and the 2.5 x 12 mm trek balloon was reinserted and this time the lesion was predilated up to 20 dany. This was then exchanged for the stent which was successfully positioned across the lesion and deployed at 18 dany. Stent balloon was then removed. We then inserted a 4.0 x 15 mm noncompliant balloon over the wire and predilated the 2 areas in the proximal to mid RCA within the in-stent restenosis. The more distal of the lesion was dilated to 18 dany while the more proximal lesion was dilated to 22 dany. The balloon was then removed and angiography was performed. The guidewire and guide catheter were subsequently removed. Using the ultrasound to identify the right femoral vein, this vessel was accessed using a modified Seldinger technique. Then, the therapeutic hypothermia (cooling catheter) catheter was inserted over the wire and sutured in place. Limited right femoral arterial angiography was performed to evaluate for closure. Findings were favorable, therefore, the femoral artery sheath was exchanged for a 6 [place] Angio-Seal closure device. This was deployed in the recommended fashion. We obtained immediate hemostasis and the patient remained hemodynamically stable. Of note, the patient required Martin-Synephrine to maintain adequate perfusion pressure in the beginning of the procedure but was able to be weaned to off by the end of the procedure. Also, patient's INR returned very elevated as he is on chronic Coumadin therapy. He received ticagrelor via an OG tube which was placed during the procedure and after the initial Integrilin boluses this was discontinued. Findings: LMT: A large caliber vessel which trifurcates into the LAD, ramus intermedius, and left circumflex. It has diffuse mild disease of less than 30% stenosis and mild calcification. LAD: This is a large caliber and transapical vessel. There is moderate diffuse calcification in the proximal and mid vessel. There is diffuse disease of less than 30 to 40% proximally. There is a large septal trunk and a large branching diagonal. Just after the first diagonal the LAD has a chronic lesion appearing up to 60% stenosed in some views. Then there is diffuse mild disease before a small caliber second diagonal. The distal LAD has diffuse mild disease. The large diagonal has proximal calcific disease of 50%. Ramus: Medium to large caliber which branches distally. Diffuse mild calcification and mild disease proximally. LCx: This is a medium to large caliber vessel which appears to be nondominant. Proximal segment with diffuse mild disease and then there is a chronic total occlusion with some collateralization to the distal AV groove vessel. This vessel was known to be 99% occluded in the past and not amenable to PCI. RCA: Very large caliber and dominant vessel. There is stent extending from the proximal segment through the mid segment. Within the most proximal portion of the stented segment there appears to be hazy lesion (thrombus irregular plaque) Stenosis appears to be 70+ percent at this level. Then there is diffuse mild to moderate in-stent restenosis until just before the large caliber first RV marginal where there appears to be a focal 80 to 90% in-stent restenosis. The remainder of the stented segment then has mild in-stent restenosis. The quileute vessel has narrowing of 50 to 60% and then either calcified distal RCA or stented distal RCA with mild to moderate in-stent restenosis. The RCA then bi furcates into the PDA and posterior lateral branch. The ostial to proximal posterior lateral branch is subtotally occluded with moderate calcification and there may be thrombus. The PDA appears relatively large with only mild ostial disease. After the stenosis in the posterior lateral branch the quileute vessel appears to be ectatic and there are several branches served by this vessel which have diffuse at least mild to moderate disease. No more than PORTER II flow in the distal RCA. PCI of RCA: 0% residual stenosis post PCI in the posterior lateral branch. Less than 10% in-stent restenosis in the proximal to mid stented segment. There remains residual early distal RCA stenosis of approximately 50% which was untreated. PORTER II to PORTER-3 flow in the distal RCA post PCI No evidence of dissection or perforation post PCI Hemodynamics Rest Ao:: 85/42 mmHg, mean 58 mmHg Final Ao: 144/74 mmHg, mean 101 mmHg LV: Not performed Recommendations Recommendations: Medical Therapy and/or Counseling (Patient will be on dual antiplatelet therapy with aspirin 81 mg daily and Brilinta 90 mg p.o. twice daily. Once he is returned to chronic oral anticoagulation then we would recommend discontinuation of the aspirin and continue Brilinta to complete at least 1 year but preferably 2 years therapy.), PCI without planned CABG and Management Recommendatons (Guideline directed medical therapy for secondary prevention of coronary disease including; high intensity statin, beta-marie, plus or minus SANDRO inhibitor/ARB as tolerated by blood pressure and renal function.) Radiation Exposure (mGy) 1793 Contrast (mls) 140 Procedural Complication(s) None Disposition ICU (Therapeutic hypothermia protocol per picker box operator) I attest to the content of the Intraoperative Record and any orders documented therein. Any exceptions are noted below. ACC Data: Typist Cardiac Status Clinical evaluation leading to the procedure Cardiac arrest, ventricular tachycardia status post defibrillation CAD Presenation: Non STEMI Cardiogenic Shock within 24 Hours: Yes Cardiac Arrest within 24 Hours: Yes Coronary Anatomy Left Main (% Stenosis): Normal (Diffuse mild) LAD (% Stenosis): Proximal (Mild), Mid (Moderate up to 50%) and Distal (Mild) D1 (% Stenosis): Proximal (50% calcified) Circumflex (% Stenosis): Proximal (Chronic total occlusion (100%)) RCA (% Stenosis): Proximal (Moderate to severe in-stent restenosis up to 70%) and Mid (In-stent restenosis up to 80%) R PDA (% Stenosis): Proximal (Mild) R PL1 (% Stenosis): Ostial (90% plus, moderate calcification) Ramus (% Stenosis): Proximal (Mild) Diagnostic Physicians Name: Ayo Villarreal MD, PhD Closure Device Recommendations: Medical Therapy and/or Counseling (Patient will be on dual antiplatelet therapy with aspirin 81 mg daily and Brilinta 90 mg p.o. twice daily. Once he is returned to chronic oral anticoagulation then we would recommend discontinuation of the aspirin and continue Brilinta to complete at least 1 year but preferably 2 years therapy.), PCI without planned CABG and Management Recommendatons (Guideline directed medical therapy for secondary prevention of coronary disease including; high intensity statin, beta-marie, plus or minus SANDRO inhibitor/ARB as tolerated by blood pressure and renal function.) Lesion Segment Name: Proximal in-stent restenosis and proximal to mid in-stent restenosis Stenosis Prior to Rx (%): Up to 70%, up to 80% Pre-Procedure PORTER Flow: 2 Previously Treated Lesion: Yes Lesion Length (mm): 10, 8 Thrombus Present: Yes (Possible) Guidewire Across Lesion: Yes Lesion #2 Segment Name: Ostial to proximal right posterior lateral branch Stenosis Prior to Rx (%): 90% plus Pre-Procedure PORTER Flow: 2 Previously Treated Lesion: No Lesion Length (mm): 8 mm Thrombus Present: No Guidewire Across Lesion: Yes Intraprocedure Events Significant Disection: No Perforation: No
[2021-08-23] MEDS: MIDAZOLAM HCL 125 MG/250 ML BAG IV SCH ×2 (18:18→21:32)
[2021-08-23] MEDS: fentaNYL citrate 2,500 MCG/250 ML BAG IV SCH ×2 (18:18→22:00)
[2021-08-23] MEDS: NOREPINEPHRINE/D5W 8 MG/508 ML BAG IV SCH (18:18)
[2021-08-23 19:24] LABS: Chol HDL Ratio 3.1 (0-5)
[2021-08-23] MEDS ORDERED: BACITRACIN OINT 0.9 GM PKT EXT SCH (19:30)
[2021-08-23] MEDS ORDERED: ICU PROTOCOL FOR HYPERGLYCEMIA PRN (19:34)
[2021-08-23] MEDS ORDERED: LEVALBUTEROL HCL 0.63 MG/3 ML NEB INH PRN (19:34)
[2021-08-23 20:04] LABS: Basophils # (auto) 0.03 K/uL (0-0.2); Basophils % (auto) 0.1 %; Eosinophils # (auto) 0.22 K/uL (0-0.5); Eosinophils % (auto) 1.1 %; Hematocrit (blood only) 43.5 % (42-52); Hemoglobin 14.5 g/dL (14.0-18.0); Immature Granulocytes % (auto) 0.5 %; Lymphocytes # (auto) 0.74 K/uL (1.2-3.4); Lymphocytes % (auto) 3.6 %; Mean Corpuscular Hemoglobin 30.9 pg (25-34); Mean Corpuscular Hgb Conc 33.3 g/dL (32-36); Mean Corpuscular Volume 92.6 fL (80-100); Mean Platelet Volume 11.3 fL (7.4-10.4); Monocytes # (auto) 1.33 K/uL (0.11-0.59); Monocytes % (auto) 6.4 %; Neutrophils # (auto) 18.33 K/uL (1.4-6.5); Neutrophils % (auto) 88.3 %; Platelet Count 314 K/uL (130-400); RDW Coefficient of Variation 13.7 % (11.5-14.5); RDW Standard Deviation 46.7 fL (36.4-46.3); White Blood Count 20.75 K/uL (4.8-10.8)
[2021-08-23 20:13] LABS: Calcium 8.6 mg/dl (8.5-10.1); Est GFR (Non-African American) 73.3 ml/min; Magnesium 1.9 mg/dl (1.7-2.4); Phosphorus 4.9 mg/dl (2.5-4.9); Potassium 4.4 mmol/L (3.5-5.1)
--- NOTE | 2021-08-23 20:22 | Procedure Note ---
Procedure Note Date of Service August 23, 2021 Note Procedure: Arterial Line Placement Attending: Dr. Dejesus APC: Lucian Cabezas PA-C Indication: Hemodynamic monitoring Anesthesia: None Emergent Consent implied in the setting of clinical deterioration and need for close hemodynamic monitoring, ABG monitoring, frequent lab draws, etc. A time-out was completed verifying correct patient, procedure, site, positioning, and implant(s) or special equipment if applicable. Allens test was performed to ensure adequate perfusion. Patients RIGHT wrist was prepped and draped in the usual sterile fashion. Ultrasound guidance was used to aid needle placement. Arterial blood return was noted. I was unable to pass the 20g Arrow arterial line over the wire secondary to resistance. The procedure was aborted. Pressure dressing applied. Second attempt at cannulation of the RIGHT Radial artery more proximally was with similar results as I was able to cannulate vessel on first stick, but unable to pass catheter into vessel. Blood Loss: Minimal Complications: Unable to pass catheter into vessel. Small localized hematoma noted. Procedural Ultrasound Guidance: Procedure Date: 08/23/2021 Indication: Hemodynamic Monitoring, Frequent ABGs/Lab draws. Attending: Dr. Dejesus APC: Lucian Cabezas PA-C Coding CPT Codes Tubes, Drains, and Vasc Access - Tubes, Drains, and Vasc Access: [id number] Place Catheter In Artery ([id number]) [facility] Procedure Codes (Charges) Tubes, Drains, and Vasc Access Procedure 1: Tubes, Drains, and Vasc Access: [id number] Place Catheter In Artery
[2021-08-23] MEDS: LACTATED RINGER'S 1,000 ML IV SCH (20:24)
[2021-08-23 20:25] LABS: Troponin I 0.28 ng/ml (0-0.04)
[2021-08-23] MEDS: PANTOprazole 40 MG in SYRINGE 0 ML IV SCH (20:25)
[2021-08-23] MEDS: BACITRACIN OINT 15 GM TUBE EXT SCH (20:25)
[2021-08-23 20:42] LABS: iSTAT Allen Test Pass; iSTAT Art Bld Gas pCO2 Correct 43 mmHg (35-46); iSTAT Art Bld Gas pH Corrected 7.348 (7.35-7.45); iSTAT Arterial Blood Gas HCO3 24 meg/L (19-24); iSTAT Arterial Blood Gas pCO2 49 mmHg (35-46); iSTAT Arterial Blood Gas pH 7.31 (7.35-7.45); iSTAT Arterial Blood Gas pO2 91 mmHg (80-95); iSTAT Arterial Blood Gas pO2 C 75; iSTAT Carbon Dioxide 26 mmol/L (24-31); iSTAT FiO2 40 %; iSTAT Hematocrit 44 % (42-52); iSTAT Potassium 3.9 mmol/L (3.3-5.0); iSTAT Site R Brachial; iSTAT Sodium 138 mmol/L (135-144)
[2021-08-24] MEDS: NOREPINEPHRINE/D5W 8 MG/508 ML BAG IV SCH ×3 (00:07→22:12)
[2021-08-24] MEDS ORDERED: GLUCOSE 10 TABS/TUBE PO PRN (00:20)
[2021-08-24] MEDS ORDERED: GLUCOSE 40% GEL 15 GM TUBE PO PRN (00:20)
[2021-08-24] MEDS ORDERED: PHARMACY GLYCEMIC MGMT CONSULT PRN (00:20)
[2021-08-24] MEDS ORDERED: CARBOHYDRATES FOR HYPOGLYCEMIA PO PRN (00:20)
[2021-08-24] MEDS ORDERED: DEXTROSE 50% 50 ML SYRINGE IV PRN (00:20)
[2021-08-24] MEDS ORDERED: GLUCAGON FOR INJ 1 MG VIAL SQ PRN (00:20)
[2021-08-24 00:23] LABS: iSTAT Art Bld Gas pCO2 Correct 50 mmHg (35-46); iSTAT Art Bld Gas pH Corrected 7.303 (7.35-7.45); iSTAT Arterial Blood Gas HCO3 25 meg/L (19-24); iSTAT Arterial Blood Gas pCO2 53 mmHg (35-46); iSTAT Arterial Blood Gas pH 7.28 (7.35-7.45); iSTAT Arterial Blood Gas pO2 115 mmHg (80-95); iSTAT Arterial Blood Gas pO2 C 106; iSTAT Carbon Dioxide 27 mmol/L (24-31); iSTAT FiO2 40 %; iSTAT Hematocrit 40 % (42-52); iSTAT Hemoglobin 13.6 g/dl (14.0-18.0); iSTAT Potassium 4.6 mmol/L (3.3-5.0); iSTAT Site R Brachial; iSTAT Sodium 137 mmol/L (135-144)
[2021-08-24] MEDS: MEPERIDINE HCL 25 MG/ML CARP/VIAL IV PRN ×3 (00:46→14:09)
[2021-08-24] MEDS ORDERED: INSULIN GLARGINE SOLOSTAR 100 UNITS/ML 3 ML PEN SC ONE (01:00)
[2021-08-24] MEDS: INSULIN ASPART PER UNIT SC SCH ×4 (01:10→18:23)
[2021-08-24 02:02] LABS: Basophils # (auto) 0.01 K/uL (0-0.2); Basophils % (auto) 0.1 %; Eosinophils # (auto) 0.03 K/uL (0-0.5); Eosinophils % (auto) 0.2 %; Hematocrit (blood only) 41.5 % (42-52); Hemoglobin 13.9 g/dL (14.0-18.0); Immature Granulocytes # (auto) 0.05 K/uL (0.00-0.02); Immature Granulocytes % (auto) 0.3 %; Lymphocytes # (auto) 0.59 K/uL (1.2-3.4); Lymphocytes % (auto) 3.6 %; Mean Corpuscular Hemoglobin 31.3 pg (25-34); Mean Corpuscular Hgb Conc 33.5 g/dL (32-36); Mean Corpuscular Volume 93.5 fL (80-100); Mean Platelet Volume 10.6 fL (7.4-10.4); Monocytes % (auto) 4.2 %; Neutrophils # (auto) 15.18 K/uL (1.4-6.5); Neutrophils % (auto) 91.6 %; Platelet Count 327 K/uL (130-400); RDW Coefficient of Variation 13.7 % (11.5-14.5); RDW Standard Deviation 46.8 fL (36.4-46.3); Red Blood Count 4.44 M/uL (4.7-6.1); White Blood Count 16.56 K/uL (4.8-10.8)
[2021-08-24 02:25] LABS: BUN Creatinine Ratio 22.9 (10-20); Calcium 8.8 mg/dl (8.5-10.1); Creatinine Clr Calc Pharmacy 64.7 ml/min; Est GFR (African American) 80.1 ml/min; Est GFR (Non-African American) 69.1 ml/min; Magnesium 1.9 mg/dl (1.7-2.4); Phosphorus 5.2 mg/dl (2.5-4.9); Potassium 5.3 mmol/L (3.5-5.1)
[2021-08-24] MEDS: propofoL 1,000 MG/100 ML VIAL IV SCH ×5 (03:07→19:46)
--- NOTE | 2021-08-24 03:14 | Procedure Note ---
Procedure Note Date of Service August 24, 2021 Note Procedure: Arterial Line Placement Attending: Dr. Dejesus APC: Lucian Cabezas PA-C Indication: Hemodynamic monitoring Anesthesia: Lidocaine 1% Emergent Consent implied in the setting of clinical deterioration and need for close hemodynamic monitoring, ABG monitoring, frequent lab draws, etc. A time-out was completed verifying correct patient, procedure, site, positioning, and implant(s) or special equipment if applicable. Allens test was performed to ensure adequate perfusion. Patients LEFT wrist was prepped and draped in the usual sterile fashion. Ultrasound guidance was used to aid needle placement. A 20g Arrow arterial line was introduced into the LEFT Radial artery. Catheter was threaded, and the needle was removed with appropriate blood return. Good waveform was observed. The patient tolerated the procedure well. Confirma tion of placement with ultrasound. Blood Loss: Minimal Complications: None Procedural Ultrasound Guidance: Procedure Date: 08/24/2021 Indication: Hemodynamic Monitoring, Frequent ABGs/Lab draws. Attending: Dr. Dejesus APC: Lucian Cabezas PA-C Artery Identified: YES Line confirmed in Artery with ultrasound: YES Complications: NONE Patient tolerated procedure: WELL Coding CPT Codes Tubes, Drains, and Vasc Access - Tubes, Drains, and Vasc Access: [id number] Place Catheter In Artery ([id number]) [facility] [place] Procedure Codes (Charges) Tubes, Drains, and Vasc Access Procedure 2: Tubes, Drains, and Vasc Access: [id number] Place Catheter In Artery
[2021-08-24] MEDS ORDERED: DEXTROSE 50% 50 ML SYRINGE IV ONE (03:15)
[2021-08-24] MEDS ORDERED: CALCIUM CHLORIDE 10% 500 MG in DEXTROSE 5% 50 ML IV STA (03:15)
[2021-08-24] MEDS ORDERED: INSULIN HUMAN REGULAR PER UNIT 6 UNITS in SYRINGE 5.94 ML IV ONE (03:30)
[2021-08-24] MEDS ORDERED: levETIRAcetam 1,000 MG in 0.9 % SODIUM CHLORIDE 100 ML IV STA (03:40)
[2021-08-24 06:08] LABS: iSTAT Art Bld Gas pCO2 Correct 40 mmHg (35-46); iSTAT Art Bld Gas pH Corrected 7.385 (7.35-7.45); iSTAT Arterial Blood Gas HCO3 25 meg/L (19-24); iSTAT Arterial Blood Gas pCO2 47 mmHg (35-46); iSTAT Arterial Blood Gas pH 7.33 (7.35-7.45); iSTAT Arterial Blood Gas pO2 107 mmHg (80-95); iSTAT Arterial Blood Gas pO2 C 87; iSTAT Carbon Dioxide 26 mmol/L (24-31); iSTAT FiO2 40 %; iSTAT Hematocrit 39 % (42-52); iSTAT Hemoglobin 13.3 g/dl (14.0-18.0); iSTAT Potassium 3.5 mmol/L (3.3-5.0); iSTAT Site Art Line; iSTAT Sodium 139 mmol/L (135-144)
[2021-08-24] MEDS: LACTATED RINGER'S 1,000 ML IV SCH (06:09)
[2021-08-24 06:49] LABS: Estimated Average Glucose 140 mg/dl; Hemoglobin A1C 6.5 % (4.5-5.6)
--- NOTE | 2021-08-24 08:03 | XRay Report ---
XR chest 1V portable HISTORY: 76 years-old Male f/u acute respiratory failure COMPARISON: Chest radiograph 08/23/2021 TECHNIQUE: Portable AP view of the chest FINDINGS: Endotracheal tube overlies the midline, 8 cm superior to the lorena. IVC catheter distal tip overlies the right atrium. Enteric tube courses below the diaphragm outside the [id number]. The cardiac si lhouette is enlarged. Calcified mediastinal and hilar lymph nodes are again noted. No pneumothorax. B lunting of the costophrenic angles may represent atelectasis versus trace effusions. Mild right hemid iaphragmatic elevation. Emphysema with chronic interstitial coarsening. No lobar airspace consolidati on. Degenerative changes of the shoulders and spine. IMPRESSION: 1. Lines and tubes as above. 2. Cardiomegaly without overt pulmonary edema. 3. Emphysema. 4. Prior granulomatous disease. ACT 112: Negative or not required by law. The above report was generated using voice recognition software. It may contain grammatical, syntax o r spelling errors. Electronically signed by: Fabien West M.D. 08/24/2021 8:02 AM
[2021-08-24 08:11] LABS: Basophils # (auto) 0.01 K/uL (0-0.2); Basophils % (auto) 0.1 %; Eosinophils # (auto) 0.02 K/uL (0-0.5); Eosinophils % (auto) 0.1 %; Hematocrit (blood only) 38.5 % (42-52); Immature Granulocytes # (auto) 0.03 K/uL (0.00-0.02); Immature Granulocytes % (auto) 0.2 %; Lymphocytes % (auto) 12.9 %; Mean Corpuscular Hemoglobin 30.4 pg (25-34); Mean Corpuscular Hgb Conc 33.8 g/dL (32-36); Mean Corpuscular Volume 90.2 fL (80-100); Mean Platelet Volume 10.3 fL (7.4-10.4); Monocytes # (auto) 0.82 K/uL (0.11-0.59); Monocytes % (auto) 5.9 %; Neutrophils % (auto) 80.8 %; Platelet Count 353 K/uL (130-400); RDW Coefficient of Variation 13.5 % (11.5-14.5); RDW Standard Deviation 44.7 fL (36.4-46.3); Red Blood Count 4.27 M/uL (4.7-6.1); White Blood Count 13.98 K/uL (4.8-10.8)
[2021-08-24] MEDS ORDERED: PERFLUTREN LIPID MICROSPHERE (DEFINITY) IV ONE (08:18)
--- NOTE | 2021-08-24 08:30 | Electrocardiogram Report ---
Test Reason : Blood Pressure : / mmHG Vent. Rate : 081 BPM Atrial Rate : 101 BPM P-R Int : 000 ms QRS Dur : 180 ms QT Int : 494 ms P-R-T Axes : 000 239 015 degrees QTc Int : 573 ms Atrial fibrillation with a competing junctional pacemaker Right bundle branch block Old Inferior infarct (cited on or before 15-SEP-2010) Old Anterolateral infarct Abnormal ECG When compared with ECG of 23-AUG-2021 16:20, No significant change Confirmed by Baldemar Barney ([id number]) on 08/24/2021 8:30:22 AM Referred By: REFERRED SELF Confirmed By:Baldemar Barney
--- NOTE | 2021-08-24 08:32 | Electrocardiogram Report ---
Test Reason : Blood Pressure : / mmHG Vent. Rate : 074 BPM Atrial Rate : 055 BPM P-R Int : 000 ms QRS Dur : 162 ms QT Int : 486 ms P-R-T Axes : 000 241 -57 degrees QTc Int : 539 ms Atrial fibrillation with premature ventricular or aberrantly conducted complexes Right bundle branch block Old Anterolateral infarct Old (cited on or before 15-SEP-2010) Diffuse Nonspecific T wave abnormality Abnormal ECG When compared with ECG of 23-AUG-2021 19:17, T wave inversion now evident in Inferior leads T wave inversion now evident in Anterior leads Confirmed by Baldemar Barney ([id number]) on 08/24/2021 8:32:06 AM Referred By: REFERRED SELF Confirmed By:Baldemar Barney
[2021-08-24 08:37] LABS: Calcium 8.2 mg/dl (8.5-10.1); Creatinine Clr Calc Pharmacy 75.4 ml/min; Est GFR (African American) 96.9 ml/min; Est GFR (Non-African American) 83.6 ml/min; Magnesium 1.9 mg/dl (1.7-2.4); Phosphorus 3.1 mg/dl (2.5-4.9); Potassium 3.7 mmol/L (3.5-5.1)
--- NOTE | 2021-08-24 08:37 | Electrocardiogram Report ---
Test Reason : Blood Pressure : / mmHG Vent. Rate : 102 BPM Atrial Rate : 105 BPM P-R Int : 000 ms QRS Dur : 180 ms QT Int : 400 ms P-R-T Axes : 000 268 076 degrees QTc Int : 521 ms Poor data quality, interpretation may be adversely affected Atrial fibrillation with rapid ventricular response with occasional atrial-paced complexes and with p remature ventricular or aberrantly conducted complexes Right bundle branch block Old Inferior infarct (cited on or before 15-SEP-2010) Old Anterolateral infarct Abnormal ECG When compared with ECG of 04-APR-2021 12:36, HR has increased by 28 bpm Otherwise no significant change Confirmed by Baldemar Barney ([id number]) on 08/24/2021 8:36:39 AM Referred By: REFERRED SELF Confirmed By:Baldemar Barney
[2021-08-24 08:48] LABS: INR 1.3 (0.9-1.1); Partial Thromboplastin Ratio 1.6; Partial Thromboplastin Time 44.6 Seconds (21.0-31.0); Prothrombin Time 13.4 Seconds (9.0-12.0)
[2021-08-24] MEDS ORDERED: ASPIRIN 81 MG ECTAB PO SCH ×2 (09:00)
[2021-08-24] MEDS: ATORVASTATIN 40 MG TAB PO SCH (09:11)
[2021-08-24] MEDS: BACITRACIN OINT 15 GM TUBE EXT SCH (09:11)
[2021-08-24] MEDS: TICAGRELOR 90 MG TAB PO SCH ×2 (09:12→20:20)
[2021-08-24] MEDS: PANTOprazole 40 MG in SYRINGE 0 ML IV SCH ×2 (09:15→20:20)
[2021-08-24 10:07] LABS: iSTAT Art Bld Gas pCO2 Correct 38 mmHg (35-46); iSTAT Art Bld Gas pH Corrected 7.422 (7.35-7.45); iSTAT Arterial Blood Gas HCO3 26 meg/L (19-24); iSTAT Arterial Blood Gas pCO2 45 mmHg (35-46); iSTAT Arterial Blood Gas pH 7.37 (7.35-7.45); iSTAT Arterial Blood Gas pO2 87 mmHg (80-95); iSTAT Arterial Blood Gas pO2 C 68; iSTAT Carbon Dioxide 27 mmol/L (24-31); iSTAT FiO2 35 %; iSTAT Hematocrit 39 % (42-52); iSTAT Hemoglobin 13.3 g/dl (14.0-18.0); iSTAT Potassium 3.6 mmol/L (3.3-5.0); iSTAT Site Art Line; iSTAT Sodium 139 mmol/L (135-144)
--- NOTE | 2021-08-24 10:30 | Critical Care Progress Note ---
Date of Service August 24, 2021 Assessment & Plan (1) Cardiac arrest: Plan: Reason Critically Ill: 76-year-old male here with a PMHx significant for CAD who presented with collapse, loss of consciousness after exertion who was admitted for cardiac arrest and subsequent anoxic brain injury.. Neuro - [facility] ICU: [NEGATIVE] Sedation: Propofol, midazolam. Fentanyl stopped. Analgesia: Aspirin 81 mg every morning * EEG checks per protocol * Cooling protocol per ICU. Rewarming approximately 24 hours after reaching goal temperature (1900 hrs.), barring hemodynamic instability in which case rewarming will proceed sooner. * IV Keppra every 12 hours Cardiac - -Cardiac arrest status post PCI and right posterolateral branch of RCA. -Patient was in cardiac arrest for unspecified period of time. * Norepinephrine 0.19 mcg/kg/min every 9 hours * Metoprolol held * Aspirin resumed * Home atorvastatin Respiratory - -Currently mechanically ventilated. Tidal volume, RR adjusted to compensate for respiratory acidosis. * Trend ABGs per ICU protocol * Assess extubation goals once rewarming is initiated. * Home COPD meds held GI - * N.p.o. * Pantoprazole per ICU bowel protection protocol RENAL/LYTES - -No significant electrolyte derangement at present. Initially hyperkalemic but now resolved * Replete electrolytes per ICU protocol * LR-30 mils per hour - [] [No concerns at this time.] ENDO - * Glucose management per ICU protocol. HEME - -Stable H&H. ID - [] [No concerns for infection at this point.] INTEGUMENTARY - [] LINES/IV ACCESS - -Femoral arterial line x1 on the right -Peripheral IV line x1 on the left wrist. DVT PROPHYLAXIS - * Home anticoagulation held. (2) Laceration of head: (3) CAD (coronary artery disease): (4) Ischemic cardiomyopathy: (5) COPD (chronic obstructive pulmonary disease): (6) Dyslipidemia: (7) Diabetes: (8) Atrial fibrillation, permanent: (9) Hypertension, essential: Admission and Anticipated Discharge Date Admission Date: August 23, 2021 Supervising Physician Co-Signing Physician Notes Patient seen and examined. EMR reviewed. Images were independently reviewed. Discussed on multidisciplinary rounds and with bedside critical care nurse as well as with family practice resident. Agree with assessment plan as noted. Patient is currently undergoing therapeutic hypothermia for out of hospital cardiac arrest. He is at high risk for anoxic brain injury. We will see if we can complete 24 hours of hypothermia. He reached target temp around 7 PM last night. If we can get him to 7 PM today then will gradually rewarmed overnight. We will discontinue fentanyl. Awaiting EEG. Will discontinue propofol during EEG as well to evaluate for underlying irritable EEG rhythms. These would portend a very poor prognosis. He continues to require hemodynamic support. Discussed with cardiology. If his heart continues to demonstrate electrical irritability, consideration for amiodarone might be appropriate although his low heart rate may complicate this issue. Overall his prognosis is guarded at this point time. Additional recommendations will be based on clinical response. The has requested no additional resuscitative efforts in the face of recurrent cardiac arrest which I think is reasonable. Total of 45 minutes of critical care time was spent evaluation management stabilization of this patient. Subjective Patient is intubated. Responds to painful stimuli. Otherwise unresponsive. Review of Systems Review of Systems: All systems reviewed & are unremarkable except as noted in HPI & below Physical Exam Physical Exam: General: Patient is intubated and unconscious. HEENT: Unable to assess as patient is currently intubated. CV: Patient currently bradycardic. No murmurs, gallops, or rubs. Pulmonary: No crackles, rhonchi, or wheezes heard on auscultation. Abdomen: Soft, nondistended abdomen. No bruits heard on auscultation. No tenderness to deep palpation. No guarding or rebound. Neuro: Responds to painful stimuli. No corneal reflex. Doll's eyes present with head movement. Results & Data Results & Data ([facility]) Vital Signs (Past 12 Hours) Vital Signs Temp Temp Pulse Resp BP BP Pulse Ox 08/24/21 08:00 33.2 C L 33.2 C L 42 L 21 88/55 L 96/40 L 99 08/24/21 07:29 42 L 24 100 08/24/21 07:00 33 C L 33.2 C L 46 L 24 85/52 L 95/40 L 98 08/24/21 06:00 33.0 C L 33.2 C L 48 L 24 83/49 L 90/40 L 100 08/24/21 05:00 33.1 C L 33.3 C L 50 L 24 89/50 L 108/43 L 100 08/24/21 04:00 33.1 C L 33.3 C L 53 L 24 89/55 L 105/41 L 100 08/24/21 03:20 64 31 H 99 08/24/21 03:00 33.2 C L 33.2 C L 65 30 H 110/48 L 103/45 L 100 08/24/21 02:00 33.2 C L 33.4 C L 68 30 H 152/49 H 100 08/24/21 01:00 34.1 C L 34.2 C L 64 24 110/60 100 08/24/21 00:15 24 08/24/21 00:00 34.3 C L 34.3 C L 70 20 99/58 L 100 08/23/21 23:00 34.1 C L 34.1 C L 75 25 H 96/53 L 100 08/23/21 22:51 82 22 99 Resident Activity Tracking Resident Involvement: Resident Care Provided Care Provided: Adult [facility]
--- NOTE | 2021-08-24 11:25 | Billing Data ---
Date of Service August 24, 2021 Coding Level of Care Code Critical Care 1st - mins
--- NOTE | 2021-08-24 11:50 | Cardiology Consultation ---
Date of Consultation August 24, 2021 Assessment & Plan (1) Cardiac arrest: (2) Stented coronary artery: (3) Ischemic cardiomyopathy: (4) Old inferior wall myocardial infarction: (5) CAD (coronary artery disease): (6) Atrial fibrillation, permanent: (7) AMS (altered mental status): 76-year-old man with longstanding and complex cardiac history who had a cardiac arrest yesterday while shoveling snow. Suspect ischemic arrhythmic event precipitated by exertion rather than primary thrombosis given lack of ST elevation, thrombus could have formed due to stasis postarrest. His prognosis is poor due to baseline ischemic cardiomyopathy with prior infarct now superimposed with neurologic impairment, pressor requirement, and recurrent ventricular dysrhythmias. Given his relative bradycardia, reluctant to initiate antiarrhythmic in the absence of very prolonged ventricular tachycardia (5-10 minutes or more). If persistent ventricular dysrhythmia, could initiate amiodarone infusion without bolus. If he survives his immediate physiologic crises, will address longer-term medication management. History of Present Illness Reason for Consultation: Cardiac arrest Requesting Physician: Nura Zavala Attending Physician: Nura Zavala History of Present Illness 76-year-old man with complex coronary artery disease, remote inferoposterolateral SC treated with TPA, multiple prior revascularizations (LAD and RCA stents), permanent atrial fibrillation, ischemic cardiomyopathy (recent EF 35 to 40%), who had been doing well at the time of an office visit with Dr. Quintero on 07/27/2021, but who was admitted yesterday after an episode of cardiac arrest while shoveling snow. He appears to have had prolonged "down time" and is neurologically impaired. Dr. Villarreal performed stenting of the proximal RCA and posterolateral branch yesterday. Patient has required pressor support for blood pressure. His rhythm is atrial fibrillation with a bradycardic response (40-50 bpm) with frequent bursts of ventricular tachycardia usually a less than 30 seconds duration. No sustained ventricular tachycardia. Patient is unresponsive. Family desires nonaggressive care in the event of recurrent cardiac arrest. Allergies Allergy/AdvReac Type Severity Reaction Status Date / Time moxifloxacin Allergy Intermediate Rash Verified 07/27/21 14:02 Iodinated Contrast Media Allergy Unknown RASH Verified 07/27/21 14:02 meloxicam Allergy Unknown interacts Verified 07/27/21 14:02 with glucose readings and Lasix simvastatin Allergy Unknown rash Verified 08/23/21 17:04 spironolactone Allergy Unknown RASH Verified 07/27/21 14:02 niacin AdvReac Unknown red flush Verified 07/27/21 14:02 Home Medications Medication Instructions Recorded Confirmed Type aspirin 81 mg tablet,delayed 81 mg PO QAM 04/02/19 08/23/21 History release cholecalciferol (vitamin D3) 25 1,000 units PO QAM 04/02/19 08/23/21 History mcg (1,000 unit) capsule coenzyme Q10 100 mg capsule (Co 100 mg PO QAM 04/02/19 08/23/21 History Q-10) dabigatran etexilate 150 mg 150 mg PO BID 04/02/19 08/23/21 History capsule (Pradaxa) docusate sodium 100 mg capsule 100 mg PO BID 04/02/19 08/23/21 History (Colace) esomeprazole magnesium 40 mg 40 mg PO QAM cap 04/02/19 08/23/21 History capsule,delayed release (Nexium) ferrous sulfate 325 mg (65 mg 325 mg PO QDD tab 04/02/19 08/23/21 History iron) tablet,delayed release metformin 500 mg tablet 500 mg PO BID 04/02/19 08/23/21 History multivitamin 1 tab PO QAM 04/02/19 08/23/21 History nebivolol 10 mg tablet (Bystolic) 10 mg PO QDD 04/02/19 08/23/21 History nitroglycerin 0.4 mg sublingual 0.4 mg SL UD PRN 04/02/19 08/23/21 History tablet omega 0-sjm-qld-fish oil 1,000 mg 1 cap PO BID 04/02/19 08/23/21 History (120 mg-180 mg) capsule (Fish Oil) potassium chloride 20 mEq 20 meq PO BID 04/02/19 08/23/21 History tablet,extended release acetaminophen 500 mg capsule 1,000 mg PO Q6H PRN 02/12/20 08/23/21 History Saccharomyces boulardii 250 mg 250 mg PO HS cap 06/28/21 08/23/21 History capsule (Daily Probiotic (S. boulardii)) ascorbate calcium (vitamin C) 500 500 mg PO DAILY 06/28/21 08/23/21 History mg tablet triamcinolone acetonide 55 mcg 2 spray INTRANASAL DAILY 06/28/21 08/23/21 History nasal spray aerosol (Nasacort) zinc gluconate 30 mg tablet 30 mg PO DAILY 06/28/21 08/23/21 History sacubitril 24 mg-valsartan 26 mg 1 tab PO BID #180 tab 07/14/21 08/23/21 Rx tablet (Entresto) Flutter Valve #1 ea 07/17/21 08/23/21 Rx amino acids (Amino Acid) 2 cap PO BIDM cap 07/17/21 08/23/21 History furosemide 40 mg tablet (Lasix) 40 mg PO BID #180 tab 07/24/21 08/23/21 Rx umeclidinium 62.5 mcg-vilanterol 1 inh INHALATION DAILY 07/27/21 08/23/21 History 25 mcg/actuation powdr for inhalation (Anoro Ellipta) Dph Tabs 1 tab PO BID 08/23/21 08/23/21 History magnesium chloride 71.5 mg 71.5 mg PO DAILY 08/23/21 08/23/21 History (magnesium chloride) tablet,delayed release (Slow-Mag) Patient History Medical History (Updated 08/24/21 @ 11:43 by Baldemar Barney MD) Acid reflux Acute electrocardiogram changes Diabetes Dyslipidemia High cholesterol WELL CONTROLLED WITH MEDICATION History of kidney stones History of SC (myocardial infarction) X2 - 2001 AND 2004 HTN (hypertension) WELL CONTROLLED WITH MEDICATION Old inferior wall myocardial infarction Presence of bare metal stent in right coronary artery Surgical History History of cardiac cath X2 History of colonoscopy History of heart artery stent TOTAL OF 3 - FIRST SC X 2, SECOND SC X 1 History of hernia repair LEFT X1, RIGHT X1 History of surgery ANAL ABCESS History of total hip replacement RIGHT Family History Other Family history of diabetes mellitus in brother Social History Smoking Status: Former smoker Tobacco Type: Cigarettes packs per day: 1; Years Smoked: 30; Second Hand Exposure: No; Hx Alcohol Use: No Hx Substance Use: No Preferred Language: Estonian Communication Ability: unable d/t Patrol Commander Required: No Beliefs That Will Affect Care: None marital status: Current Living Situation: Spouse Feels Safe at Home: Yes Assistive Devices: Oxygen - Continuous Physical Exam Physical Exam: Unresponsive, on mechanical ventilation and pressors. Temperature 91.8 (on Arctic protocol). BP 113/45 mmHg (on pressors). Pulse 45 bpm and irregular. Skin: no ecchymoses or generalized lesions. HEENT: unremarkable. Neck: Jugular venous pulse not elevated, no obvious carotid bruits. Lungs: clear bilaterally (on ventilator) Cardiac: Irregular rhythm without obvious murmur. Abdomen: benign. Extremities: Chronic stasis changes lower extremities with trace/1+ pretibial edema. Neurologic: Unresponsive, mechanically ventilated, no spontaneous movements. Results & Data ([facility]) Laboratory Results Normal electrolytes, BUN 24, creatinine 0.89. Hemoglobin 13. Troponin peaked at 0.61 and is declining. Diagnostic Findings Serial ECGs showed A. fib with controlled ventricular response, old inferior and anterolateral infarcts, right bundle branch block. No dynamic ST elevation or depression noted. Cardiac catheterization results as detailed by Dr. Villarreal. RCA had occlusive disease which was stented, circumflex is chronically totally occluded mid vessel, LAD with borderline but noncritical stenoses. Chest x-ray showed emphysema without pulmonary edema. PG Care Time/CCT Total # of Minutes Spent Total Time Spent with Patient: Total time spent is greater than 50% in coordination of care (as documented) at patient's floor/unit and/or counseling patient: Coding Level of Care Code 29341 Initial Inpt Care Lvl 3 Diagnoses Cardiac arrest I46.9 Ischemic cardiomyopathy I25.5 CAD (coronary artery disease) I25.10 Atrial fibrillation, permanent I48.21 AMS (altered mental status) R41.82 Altered mental status type: unspecified Old inferior wall myocardial infarction I25.2 Stented coronary artery Z95.5 (1) AMS (altered mental status) Altered mental status type: unspecified Qualified Code(s): R41.82 - Altered mental status, unspecified
[2021-08-24 12:15] LABS: Eosinophils # (auto) 0.02 K/uL (0-0.5); Eosinophils % (auto) 0.1 %; Hematocrit (blood only) 41.1 % (42-52); Hemoglobin 13.6 g/dL (14.0-18.0); Immature Granulocytes # (auto) 0.06 K/uL (0.00-0.02); Immature Granulocytes % (auto) 0.3 %; Lymphocytes # (auto) 1.14 K/uL (1.2-3.4); Lymphocytes % (auto) 6.4 %; Mean Corpuscular Hemoglobin 30.2 pg (25-34); Mean Corpuscular Hgb Conc 33.1 g/dL (32-36); Mean Corpuscular Volume 91.1 fL (80-100); Mean Platelet Volume 10.1 fL (7.4-10.4); Monocytes # (auto) 1.62 K/uL (0.11-0.59); Monocytes % (auto) 9.1 %; Neutrophils # (auto) 14.97 K/uL (1.4-6.5); Neutrophils % (auto) 84.1 %; Platelet Count 343 K/uL (130-400); RDW Coefficient of Variation 13.4 % (11.5-14.5); RDW Standard Deviation 44.4 fL (36.4-46.3); Red Blood Count 4.51 M/uL (4.7-6.1); White Blood Count 17.81 K/uL (4.8-10.8)
[2021-08-24 12:36] LABS: BUN Creatinine Ratio 26.3 (10-20); Calcium 9.2 mg/dl (8.5-10.1); Creatinine Clr Calc Pharmacy 70.6 ml/min; Est GFR (African American) 90.4 ml/min; Magnesium 1.9 mg/dl (1.7-2.4); Phosphorus 4.4 mg/dl (2.5-4.9); Potassium 4.4 mmol/L (3.5-5.1)
--- NOTE | 2021-08-24 12:53 | Electroencephalogram ---
EEG Procedure Note Date of Service August 24, 2021 Start / End Times Start Time: 11:43 AM End Time: 12:03 PM Referring Physician Lucian Cabezas History Cardiac arrest, unresponsive, shaking, evaluate for seizure activity Home Medication List Medication Instructions Recorded Confirmed Type aspirin 81 mg tablet,delayed 81 mg PO QAM 04/02/19 08/23/21 History release cholecalciferol (vitamin D3) 25 1,000 units PO QAM 04/02/19 08/23/21 History mcg (1,000 unit) capsule coenzyme Q10 100 mg capsule (Co 100 mg PO QAM 04/02/19 08/23/21 History Q-10) dabigatran etexilate 150 mg 150 mg PO BID 04/02/19 08/23/21 History capsule (Pradaxa) docusate sodium 100 mg capsule 100 mg PO BID 04/02/19 08/23/21 History (Colace) esomeprazole magnesium 40 mg 40 mg PO QAM cap 04/02/19 08/23/21 History capsule,delayed release (Nexium) ferrous sulfate 325 mg (65 mg 325 mg PO QDD tab 04/02/19 08/23/21 History iron) tablet,delayed release metformin 500 mg tablet 500 mg PO BID 04/02/19 08/23/21 History multivitamin 1 tab PO QAM 04/02/19 08/23/21 History nebivolol 10 mg tablet (Bystolic) 10 mg PO QDD 04/02/19 08/23/21 History nitroglycerin 0.4 mg sublingual 0.4 mg SL UD PRN 04/02/19 08/23/21 History tablet omega 1-mud-jat-fish oil 1,000 mg 1 cap PO BID 04/02/19 08/23/21 History (120 mg-180 mg) capsule (Fish Oil) potassium chloride 20 mEq 20 meq PO BID 04/02/19 08/23/21 History tablet,extended release acetaminophen 500 mg capsule 1,000 mg PO Q6H PRN 02/12/20 08/23/21 History Saccharomyces boulardii 250 mg 250 mg PO HS cap 06/28/21 08/23/21 History capsule (Daily Probiotic (S. boulardii)) ascorbate calcium (vitamin C) 500 500 mg PO DAILY 06/28/21 08/23/21 History mg tablet triamcinolone acetonide 55 mcg 2 spray INTRANASAL DAILY 06/28/21 08/23/21 History nasal spray aerosol (Nasacort) zinc gluconate 30 mg tablet 30 mg PO DAILY 06/28/21 08/23/21 History sacubitril 24 mg-valsartan 26 mg 1 tab PO BID #180 tab 07/14/21 08/23/21 Rx tablet (Entresto) Flutter Valve #1 ea 07/17/21 08/23/21 Rx amino acids (Amino Acid) 2 cap PO BIDM cap 07/17/21 08/23/21 History furosemide 40 mg tablet (Lasix) 40 mg PO BID #180 tab 07/24/21 08/23/21 Rx umeclidinium 62.5 mcg-vilanterol 1 inh INHALATION DAILY 07/27/21 08/23/21 History 25 mcg/actuation powdr for inhalation (Anoro Ellipta) Dph Tabs 1 tab PO BID 08/23/21 08/23/21 History magnesium chloride 71.5 mg 71.5 mg PO DAILY 08/23/21 08/23/21 History (magnesium chloride) tablet,delayed release (Slow-Mag) Inpatient Medication List Atorvastatin Calcium (Atorvastatin 40 Mg Tab) 40 mg PO QAM [facility] Stop: 09/23/21 08:59 Last Admin: 08/24/21 09:11 Dose: 40 mg Documented by: [id number] Bacitracin (Bacitracin Oint 15 Gm Tube) 1 appln EXT DAILY [facility] Stop: 09/22/21 19:59 Last Admin: 08/24/21 09:11 Dose: 1 appln Documented by: [id number] Admin: 08/23/21 20:25 Dose: 1 appln Documented by: [id number] Propofol (Diprivan) 1,000 mg in 100 mls @ 14.04 mls/hr IV .Q7H8M [facility]; Protocol Stop: 08/26/21 17:14 Last Admin: 08/24/21 11:29 Dose: 30 mcg/kg/min, 14 mls/hr Documented by: [id number] Cosigned by: [id number] Titration: 08/24/21 11:29 Dose: 30 mcg/kg/min, 14 mls/hr Documented by: [id number] Cosigned by: [id number] Titration: 08/24/21 10:00 Dose: 30 mcg/kg/min, 14 mls/hr Documented by: [id number] Titration: 08/24/21 09:00 Dose: 25 mcg/kg/min, 11.7 mls/hr Documented by: [id number] Admin: 08/24/21 07:31 Dose: Not Given Documented by: [id number] Titration: 08/24/21 07:06 Dose: 20 mcg/kg/min, 9.4 mls/hr Documented by: [id number] Cosigned by: [id number] Admin: 08/24/21 03:07 Dose: 20 mcg/kg/min, 9.4 mls/hr Documented by: [id number] Cosigned by: [id number] Midazolam HCl (Versed) 125 mg in 250 mls @ 0 mls/hr IV .Q0M CYNTHIA; Protocol Stop: 09/22/21 17:14 Last Titration: 08/24/21 05:30 Dose: 0 mg/hr, 0 mls/hr Documented by: [id number] Cosigned by: [id number] Titration: 08/24/21 05:00 Dose: 2 mg/hr, 4 mls/hr Documented by: [id number] Cosigned by: [id number] Titration: 08/24/21 04:30 Dose: 3 mg/hr, 6 mls/hr Documented by: [id number] Cosigned by: [id number] Titration: 08/24/21 00:07 Dose: 5 mg/hr, 10 mls/hr Documented by: [id number] Cosigned by: [id number] Titration: 08/23/21 22:45 Dose: 4 mg/hr, 8 mls/hr Documented by: [id number] Cosigned by: [id number] Titration: 08/23/21 22:15 Dose: 3 mg/hr, 6 mls/hr Documented by: [id number] Cosigned by: [id number] Titration: 08/23/21 22:00 Dose: 2 mg/hr, 4 mls/hr Documented by: [id number] Cosigned by: [id number] Admin: 08/23/21 21:32 Dose: 1 mg/hr, 2 mls/hr Documented by: [id number] Cosigned by: [id number] Admin: 08/23/21 18:18 Dose: Not Given Documented by: [id number] Fentanyl Citrate (Fentanyl Citrate) 2,500 mcg in 250 mls @ 0 mls/hr IV .Q0M CYNTHIA; Protocol Stop: 09/06/21 17:14 Last Titration: 08/24/21 09:15 Dose: 0 mcg/hr, 0 mls/hr Documented by: [id number] Cosigned by: [id number] Titration: 08/24/21 07:06 Dose: 100 mcg/hr, 10 mls/hr Documented by: [id number] Cosigned by: [id number] Titration: 08/24/21 05:00 Dose: 100 mcg/hr, 10 mls/hr Documented by: [id number] Cosigned by: [id number] Titration: 08/24/21 01:00 Dose: 125 mcg/hr, 12.5 mls/hr Documented by: [id number] Cosigned by: [id number] Titration: 08/23/21 22:45 Dose: 100 mcg/hr, 10 mls/hr Documented by: [id number] Cosigned by: [id number] Titration: 08/23/21 22:30 Dose: 75 mcg/hr, 7.5 mls/hr Documented by: [id number] Cosigned by: [id number] Titration: 08/23/21 22:15 Dose: 50 mcg/hr, 5 mls/hr Documented by: [id number] Cosigned by: [id number] Admin: 08/23/21 22:00 Dose: 25 mcg/hr, 2.5 mls/hr Documented by: [id number] Cosigned by: [id number] Admin: 08/23/21 18:18 Dose: Not Given Documented by: [id number] Norepinephrine Bitartrate (Levophed/D5w) 8 mg in 508 mls @ 56.464 mls/hr IV .Q9H CYNTHIA; Protocol Stop: 09/22/21 17:14 Last Titration: 08/24/21 10:00 Dose: 0.19 mcg/kg/min, 56.5 mls/hr Documented by: [id number] Titration: 08/24/21 09:16 Dose: 0.17 mcg/kg/min, 50.5 mls/hr Documented by: [id number] Titration: 08/24/21 07:06 Dose: 0.15 mcg/kg/min, 44.6 mls/hr Documented by: [id number] Cosigned by: [id number] Titration: 08/24/21 06:00 Dose: 0.15 mcg/kg/min, 44.6 mls/hr Documented by: [id number] Titration: 08/24/21 04:30 Dose: 0.12 mcg/kg/min, 35.7 mls/hr Documented by: [id number] Titration: 08/24/21 04:00 Dose: 0.1 mcg/kg/min, 29.7 mls/hr Documented by: [id number] Titration: 08/24/21 03:30 Dose: 0.07 mcg/kg/min, 20.8 mls/hr Documented by: [id number] Admin: 08/24/21 00:07 Dose: 0.05 mcg/kg/min, 14.9 mls/hr Documented by: [id number] Cosigned by: [id number] Admin: 08/23/21 18:18 Dose: Not Given Documented by: [id number] Pantoprazole Sodium 40 mg/ (Syringe) 10 mls @ 5 mls/min IV BID CYNTHIA Stop: 09/22/21 20:59 Last Admin: 08/24/21 09:15 Dose: 5 mls/min Documented by: [id number] Admin: 08/23/21 20:25 Dose: 5 mls/min Documented by: [id number] Lactated Ringer's (Lr) 1,000 mls @ 30 mls/hr IV .Q24H CYNTHIA Stop: 09/22/21 19:44 Last Infusion: 08/24/21 10:23 Dose: 30 mls/hr Documented by: [id number] Admin: 08/24/21 06:09 Dose: 100 mls/hr Documented by: [id number] Infusion: 08/24/21 06:09 Dose: 100 mls/hr Documented by: [id number] Admin: 08/23/21 20:24 Dose: 100 mls/hr Documented by: [id number] Insulin Aspart (Insulin Aspart Per Unit) 0 units SC Q6 CYNTHIA Stop: 09/23/21 00:59 Last Admin: 08/24/21 12:28 Dose: Not Given Documented by: [id number] Admin: 08/24/21 06:08 Dose: Not Given Documented by: [id number] Admin: 08/24/21 01:10 Dose: 3 units Documented by: [id number] Cosigned by: [id number] Meperidine HCl (Meperidine Hcl 25 Mg/Ml Carp/Vial) 25 mg IV Q2H PRN PRN Reason: Shivering Stop: 09/07/21 00:36 Last Admin: 08/24/21 09:12 Dose: 25 mg Documented by: [id number] Admin: 08/24/21 00:46 Dose: 25 mg Documented by: [id number] Ticagrelor (Ticagrelor 90 Mg Tab) 90 mg PO BID [facility] Stop: 09/23/21 08:59 Last Admin: 08/24/21 09:12 Dose: 90 mg Documented by: [id number] Discontinued Medications Aspirin (Aspirin 81 Mg Ectab) 81 mg PO QAM [facility] Stop: 09/23/21 08:59 Last Admin: 08/24/21 09:11 Dose: 81 mg Documented by: [id number] Dextrose (Dextrose 50% 50 Ml Syringe) 25 ml IV NOW ONE Stop: 08/24/21 03:16 Last Admin: 08/24/21 03:35 Dose: 25 ml Documented by: [id number] Famotidine (Pepcid 20mg Iv Push) 20 mg in 5 mls @ 2.5 mls/min IV NOW STA Stop: 08/23/21 16:46 Last Admin: 08/23/21 17:02 Dose: 2.5 mls/min Documented by: [id number] Calcium Chloride 500 mg/ (Dextrose) 55 mls @ 240 mls/hr IV NOW STA Stop: 08/24/21 03:28 Last Infusion: 08/24/21 04:03 Dose: 0 mls/hr Documented by: [id number] Admin: 08/24/21 03:35 Dose: 240 mls/hr Documented by: [id number] Insulin Human Regular 6 units/ (Syringe) 6 mls @ 36 mls/min IV ONE ONE Stop: 08/24/21 03:31 Last Admin: 08/24/21 03:36 Dose: 36 mls/min Documented by: [id number] Cosigned by: [id number] Levetiracetam 1,000 mg/ Sodium (Chloride) 110 mls @ 440 mls/hr IV NOW STA Stop: 08/24/21 03:54 Last Infusion: 08/24/21 04:33 Dose: 0 mls/hr Documented by: [id number] Admin: 08/24/21 04:06 Dose: 440 mls/hr Documented by: [id number] Insulin Glargine (Insulin Glargine Solostar 100 Units/Ml 3 Ml Pen) 20 units SC ONE ONE Stop: 08/24/21 01:01 Last Admin: 08/24/21 01:16 Dose: 20 units Documented by: [id number] Cosigned by: [id number] Midazolam HCl (Midazolam Hcl 1 Mg/Ml 2ml Vial) 2 mg IV ONCE STA Stop: 08/23/21 17:07 Last Admin: 08/23/21 17:35 Dose: Not Given Documented by: [id number] Miscellaneous (Rapid Sequence Induction Bag) Confirm Administered Dose 1 ea .ROUTE .STK-MED ONE Stop: 08/23/21 16:05 Last Admin: 08/23/21 16:37 Dose: 1 ea Documented by: [id number] Norepinephrine Bitartrate (Norepinephrine/D5w 8 Mg/508 Ml) Confirm Administered Dose 8 mg IV .STK-MED ONE Stop: 08/23/21 16:05 Last Admin: 08/23/21 17:11 Dose: 8 mg Documented by: [id number] Perflutren Lipid Microsphere (Perflutren Lipid Microsphere ([employer])) 2 ml IV ONCE ONE Stop: 08/24/21 08:19 Last Admin: 08/24/21 08:19 Dose: 2 ml Documented by: [id number] Description This is a 21 electrode EEG with a single channel dedicated to limited EKG. The electrodes were placed in accordance with the International 10-20 system. This EEG was performed in the intensive care unit with the patient on the ventilator. The predominant rhythm consists of low amplitude high-frequency frontally predominant, left greater than right, beta activity. Photic stimulation and hyperventilation are not performed. A normal-appearing alpha rhythm is not observed. There is no focal slowing. A burst suppression pattern is not observed. Interpretation Abnormal awake/drowsy EEG revealing a fairly continuous prominent low amplitude beta activity throughout the study which may be related to either previous administration of sedative medication or cerebral anoxia. Seizure activity may not be completely excluded, however. Clinical Correlation If there is clinical concern for subclinical seizure activity, would recommend treatment with an anticonvulsant. [facility] EEG Procedure Codes Indication for Procedure (1) Cardiac arrest: (2) Unresponsive: (3) Cerebral anoxia: (4) Seizure-like activity: Neurology Neurology: [id number] EEG include record awake & drowsy
--- NOTE | 2021-08-24 13:21 | Electrocardiogram Report ---
Test Reason : Blood Pressure : / mmHG Vent. 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 rate has decreased BY 29 BPM Confirmed by Baldemar Barney ([id number]) on 08/24/2021 1:20:44 PM Referred By: REFERRED SELF Confirmed By:Baldemar Barney
--- NOTE | 2021-08-24 13:27 | Pharmacy Report ---
Pharmacy Glycemic Short Note 2 - Date of Service August 24, 2021 - Glycemic Short BSG Results (Last 24 hours): 08/23/21 08/23/21 08/23/21 16:15 18:49 22:29 Glucose 214 H 204 H POC Glucose 253 H POC Glucose (other) 08/23/21 08/24/21 08/24/21 23:53 01:50 05:53 Glucose 250 H POC Glucose 252 H POC Glucose (other) 119 H 08/24/21 08/24/21 08/24/21 07:51 12:03 12:09 Glucose 70 97 POC Glucose POC Glucose (other) 100 H OUTPATIENT ANTIDIABETIC REGIMEN: * metformin 500mg BID * A1c: 6.5% ASSESSMENT: * Patient admitted post cardiac arrest likely experiencing stress induced hyperglycemia. Patient undergoing therapeutic hypothermia and remained sedated on on norepinephrine infusion. * Patient received a one time dose of Lantus last evening * Fasting BSG downtrended significantly to 70mg/dL this morning. As patient actively undergoing therapeutic hypothermia and as BSGs have remained below 120mg/dL, will hold on any additional basal insulin at this time PLAN FOR INPATIENT GLYCEMIC CONTROL: * Hold outpatient oral diabetes medications * Basal insulin * Lantus 20 units SQ X 1 last evening * Hold additional basal insulin at this time. * Bolus insulin * NovoLog per scale ACHS or Q6hrs while NPO * Goal Range: Low 120 mg/dL - High 160 mg/dL * Correction Factor: 30 mg/dL/unit * Nutritional / Prandial insulin per carb ratio of 1 unit per 10 grams CHO consumed
--- NOTE | 2021-08-24 14:00 | XCELERA ---
[id number]
[2021-08-24] MEDS ORDERED: METOPROLOL TARTRATE 50 MG TAB PO SCH (16:30)
[2021-08-24 17:57] LABS: Hemoglobin 13.1 g/dL (14.0-18.0); Mean Corpuscular Hemoglobin 30.2 pg (25-34); Mean Corpuscular Hgb Conc 33.6 g/dL (32-36); Mean Corpuscular Volume 89.9 fL (80-100); Mean Platelet Volume 10.5 fL (7.4-10.4); Platelet Count 312 K/uL (130-400); RDW Coefficient of Variation 13.4 % (11.5-14.5); RDW Standard Deviation 44.1 fL (36.4-46.3); Red Blood Count 4.34 M/uL (4.7-6.1); White Blood Count 23.67 K/uL (4.8-10.8)
[2021-08-24 18:18] LABS: Basophils # (auto) 0.01 K/uL (0-0.2); Echinocytes 1+; Immature Granulocytes # (auto) 0.08 K/uL (0.00-0.02); Immature Granulocytes % (auto) 0.3 %; Lymphocytes # (auto) 1.64 K/uL (1.2-3.4); Lymphocytes % (auto) 6.9 %; Monocytes # (auto) 0.86 K/uL (0.11-0.59); Monocytes % (auto) 3.6 %; Neutrophils # (auto) 21.08 K/uL (1.4-6.5); Neutrophils % (auto) 89.2 %
[2021-08-24] MEDS: levETIRAcetam 500 MG in 0.9 % SODIUM CHLORIDE 100 ML IV SCH (18:22)
[2021-08-24 18:55] LABS: BUN Creatinine Ratio 31.5 (10-20); Calcium 9.3 mg/dl (8.5-10.1); Creatinine Clr Calc Pharmacy 75.4 ml/min; Est GFR (African American) 96.9 ml/min; Est GFR (Non-African American) 83.6 ml/min; Magnesium 1.8 mg/dl (1.7-2.4); Phosphorus 4.4 mg/dl (2.5-4.9); Potassium 4.4 mmol/L (3.5-5.1)
--- NOTE | 2021-08-24 19:58 | Hospitalist Progress Note ---
Date of Service August 24, 2021 Assessment & Plan (1) Cardiac arrest: Plan: Patient s/p arrest with on site CPR and recovered ROSC x2 shocks with arrival of EMS - Unkown down time- no reports of spontaneous movement or eye opening - Head CT prior to field laboratory operator without evidence at this time of bleeding - GCS 3T on arrival- will need full neurological examination post field laboratory operator- anoxic injury is possible - Cooling protocol defer to ICU team - Neurological exams per ICU - Repeat imaging for change or re-evaluation - Afib with RBB on arrival to EMD - Continue his Bystolic - Dabigatran on hold -Continue Norepi./ sedation EEG completed: results correlate to either sedative meds vs anoxic brain injury -continue cooling protocol Discussion with had on admission- she states that they both have DNR/DNI and if he were to arrest again that no intervention be made. (2) Laceration of head: Plan: Following his collapse at home - Cleansed in EMD with Betadine by EMD provider - Will need further irrigation and primary closure likely with elvira - Neruo checks with repeat head CT for any changes following for DASH (3) CAD (coronary artery disease): Plan: Multivessel disease with stenting to RCA, LAD, STEMI in 2001 and 2005 - laboratory scientist currently- await results or interventions- JAVED to RCA - Brilinta given in field laboratory operator [id number] - ASA resume when able (4) Ischemic cardiomyopathy: Plan: EF 40-45 % with ECHO performed 07/07 - Initiate IV lasix for diuresing as able post cath - May need inotropic/vasopressor support- pending - Hold ENTRESTO (5) COPD (chronic obstructive pulmonary disease): Plan: Hold his umeclidinium/vilanterol - Xopinex nebs while intubated in ICU- defer to ICU for further (6) Dyslipidemia: Plan: Appears to have been on Atorvastatin with cardiology visit in December 05- this appears to have been stopped - hold coq10, fish oil, - was previously well controlled (7) Diabetes: Plan: NPO- q6 hour dextrose sticks - hyper/hypoglycemia protocol to ICU (8) Atrial fibrillation, permanent: Plan: Rate controlled with his nebivolol - Chronic anticoagulation with Dabigatran- currently on hold following arrest and field laboratory operator evaluation - restart when appropriate (9) Hypertension, essential: Plan: Hold antihypertensives at this time - follow and restart when appropriate Admission and Anticipated Discharge Date Admission Date: August 23, 2021 Subjective Patient intubated. Review of Systems Review of Systems: Unobtainable due to endotracheal tube Physical Exam Physical Exam: PHYSICAL EXAM: General: Intubated Head: posterior scalp laceration with hematoma Neuro: GCS 3T, Unresponsive, pupils currently 3 non-reactive bilaterally, no withdraw or localization to deep pain, no cough with suctioning and no spontaneous respirations- apnea alarm trigger. Chest: equal rise and fall of the chest, no accessory muscle use, no heaves or thrills, Clear to auscultation, on room air, Cardiac: Regular rate and rhythm, telemetry reviewed- afib, skin warm dry, cap refill <3 seconds, peripheral pulses +2, 2+ edema to bilateral lower legs, pulses weak, skin cold, grade II systolic murmur GI: NABS x 4 quadrants, soft, nontender to palpation, : Tabares to gravity, draining rose urine Psych: Normal mood and affect Skin: varicosities to lower extremity,~3x2 cm laceration to back of head, Results & Data Results & Data ([facility]) Vital Signs (Past 12 Hours) Vital Signs Temp Temp Temp Pulse Resp BP BP 08/24/21 19:00 35.7 C L 35.8 C L 63 25 H 97/51 L 08/24/21 18:00 35.3 C L 35.3 C L 35.3 C L 67 18 100/52 L 100/52 L 08/24/21 17:00 34.6 C L 33.5 C L 59 L 16 103/55 L 103/55 L 08/24/21 16:06 33.3 C L 48 L 19 102/54 L 08/24/21 16:00 33.3 C L 33.3 C L 33.3 C L 55 L 18 102/54 L 08/24/21 15:43 51 L 25 H 08/24/21 15:01 33.2 C L 51 L 15 112/56 L 08/24/21 15:00 33.2 C L 33.2 C L 47 L 20 112/56 L 08/24/21 14:14 33.3 C L 54 L 20 116/56 L 08/24/21 14:00 33.3 C L 33.2 C L 33.3 C L 50 L 17 116/56 L 08/24/21 13:01 33.2 C L 54 L 17 130/98 08/24/21 13:00 33.2 C L 33.2 C L 62 20 130/98 08/24/21 12:29 33.4 C L 55 L 20 08/24/21 12:00 33.3 C L 33.2 C L 33.4 C L 54 L 14 107/41 L 107/65 08/24/21 11:35 33.2 C L 46 L 20 90/51 L 08/24/21 11:01 33.2 C L 40 L 18 106/54 L 08/24/21 11:00 33.1 C L 33.2 C L 69 22 106/54 L 08/24/21 10:34 45 L 20 08/24/21 10:31 33.2 C L 49 L 18 08/24/21 10:01 33.1 C L 47 L 18 08/24/21 10:00 33.1 C L 33.1 C L 33.2 C L 49 L 20 110/59 L 08/24/21 09:30 33.2 C L 41 L 20 08/24/21 09:00 33.2 C L 33.1 C L 33.2 C L 43 L 24 83/50 L 08/24/21 08:30 33.2 C L 66 24 08/24/21 08:00 33.2 C L 33.2 C L 33.2 C L 46 L 24 88/55 L BP Pulse Ox 08/24/21 19:00 100/44 L 100 08/24/21 18:00 114/47 L 99 08/24/21 17:00 117/47 L 100 08/24/21 16:06 68 L 08/24/21 16:00 106/46 L 100 08/24/21 15:43 100 08/24/21 15:01 100 08/24/21 15:00 115/48 L 100 08/24/21 14:14 08/24/21 14:00 107/43 L 100 08/24/21 13:01 100 08/24/21 13:00 120/50 L 100 08/24/21 12:29 08/24/21 12:00 108/46 L 100 08/24/21 11:35 08/24/21 11:01 100 08/24/21 11:00 111/44 L 99 08/24/21 10:34 99 08/24/21 10:31 100 08/24/21 10:01 100 08/24/21 10:00 113/45 L 100 08/24/21 09:30 100 08/24/21 09:00 86/41 L 99 08/24/21 08:30 100 08/24/21 08:00 96/40 L 99 PG Care Time/CCT Total # of Minutes Spent Total Time Spent with Patient: Total time spent is greater than 50% in coordination of care (as documented) at patient's floor/unit and/or counseling patient: Coding Level of Care Code 48411 Subseq Hosp Care Lvl 2 Diagnoses Cardiac arrest I46.9 Laceration of head S01.91XA CAD (coronary artery disease) I25.10 Ischemic cardiomyopathy I25.5 COPD (chronic obstructive pulmonary disease) J44.9 Dyslipidemia E78.5 Diabetes E11.9 Atrial fibrillation, permanent I48.21 Hypertension, essential I10
[2021-08-24 20:18] LABS: iSTAT Art Bld Gas pCO2 Correct 39 mmHg (35-46); iSTAT Art Bld Gas pH Corrected 7.431 (7.35-7.45); iSTAT Arterial Blood Gas HCO3 26 meg/L (19-24); iSTAT Arterial Blood Gas pCO2 41 mmHg (35-46); iSTAT Arterial Blood Gas pH 7.41 (7.35-7.45); iSTAT Arterial Blood Gas pO2 93 mmHg (80-95); iSTAT Arterial Blood Gas pO2 C 86; iSTAT Carbon Dioxide 27 mmol/L (24-31); iSTAT FiO2 35 %; iSTAT Hematocrit 39 % (42-52); iSTAT Hemoglobin 13.3 g/dl (14.0-18.0); iSTAT Potassium 4.3 mmol/L (3.3-5.0); iSTAT Site Art Line; iSTAT Sodium 137 mmol/L (135-144)
[2021-08-24] MEDS ORDERED: STAT IV Infusion **Titration per Protocol STA (21:50)
[2021-08-24] MEDS: VASOPRESSIN 20 UNITS in 0.9 % SODIUM CHLORIDE 100 ML IV SCH (22:12)
[2021-08-25] MEDS: INSULIN ASPART PER UNIT SC SCH ×6 (00:43→23:43)
[2021-08-25 00:50] LABS: Hematocrit (blood only) 38.4 % (42-52); Hemoglobin 12.9 g/dL (14.0-18.0); Mean Corpuscular Hemoglobin 30.1 pg (25-34); Mean Corpuscular Hgb Conc 33.6 g/dL (32-36); Mean Corpuscular Volume 89.5 fL (80-100); Mean Platelet Volume 10.8 fL (7.4-10.4); Platelet Count 348 K/uL (130-400); RDW Coefficient of Variation 13.4 % (11.5-14.5); RDW Standard Deviation 43.2 fL (36.4-46.3); Red Blood Count 4.29 M/uL (4.7-6.1); White Blood Count 24.48 K/uL (4.8-10.8)
[2021-08-25 01:10] LABS: Basophils # (auto) 0.01 K/uL (0-0.2); Eosinophils # (auto) 0.02 K/uL (0-0.5); Eosinophils % (auto) 0.1 %; Immature Granulocytes # (auto) 0.08 K/uL (0.00-0.02); Immature Granulocytes % (auto) 0.3 %; Lymphocytes # (auto) 1.07 K/uL (1.2-3.4); Lymphocytes % (auto) 4.4 %; Monocytes # (auto) 2.09 K/uL (0.11-0.59); Monocytes % (auto) 8.5 %; Neutrophils # (auto) 21.21 K/uL (1.4-6.5); Neutrophils % (auto) 86.7 %
[2021-08-25 01:23] LABS: iSTAT Art Bld Gas pCO2 Correct 37 mmHg (35-46); iSTAT Art Bld Gas pH Corrected 7.435 (7.35-7.45); iSTAT Arterial Blood Gas HCO3 25 meg/L (19-24); iSTAT Arterial Blood Gas pCO2 39 mmHg (35-46); iSTAT Arterial Blood Gas pH 7.42 (7.35-7.45); iSTAT Arterial Blood Gas pO2 81 mmHg (80-95); iSTAT Arterial Blood Gas pO2 C 76; iSTAT Carbon Dioxide 26 mmol/L (24-31); iSTAT FiO2 30 %; iSTAT Hematocrit 39 % (42-52); iSTAT Hemoglobin 13.3 g/dl (14.0-18.0); iSTAT Potassium 4.6 mmol/L (3.3-5.0); iSTAT Site Art Line; iSTAT Sodium 137 mmol/L (135-144)
[2021-08-25 01:26] LABS: BUN Creatinine Ratio 32.9 (10-20); Calcium 9.1 mg/dl (8.5-10.1); Creatinine Clr Calc Pharmacy 81.8 ml/min; Est GFR (African American) 100.3 ml/min; Est GFR (Non-African American) 86.5 ml/min; Magnesium 1.8 mg/dl (1.7-2.4); Phosphorus 3.8 mg/dl (2.5-4.9); Potassium 4.4 mmol/L (3.5-5.1)
[2021-08-25] MEDS: propofoL 1,000 MG/100 ML VIAL IV SCH ×4 (02:02→13:08)
[2021-08-25] MEDS: LACTATED RINGER'S 1,000 ML IV SCH (04:48)
[2021-08-25] MEDS: VASOPRESSIN 20 UNITS in 0.9 % SODIUM CHLORIDE 100 ML IV SCH (05:47)
[2021-08-25] MEDS: NOREPINEPHRINE/D5W 8 MG/508 ML BAG IV SCH ×3 (05:49→23:37)
[2021-08-25] MEDS: levETIRAcetam 500 MG in 0.9 % SODIUM CHLORIDE 100 ML IV SCH ×2 (06:04→17:19)
[2021-08-25 06:10] LABS: Basophils # (auto) 0.01 K/uL (0-0.2); Hematocrit (blood only) 37.3 % (42-52); Hemoglobin 12.6 g/dL (14.0-18.0); Immature Granulocytes # (auto) 0.05 K/uL (0.00-0.02); Immature Granulocytes % (auto) 0.2 %; Lymphocytes # (auto) 0.76 K/uL (1.2-3.4); Lymphocytes % (auto) 3.6 %; Mean Corpuscular Hgb Conc 33.8 g/dL (32-36); Mean Corpuscular Volume 88.8 fL (80-100); Monocytes # (auto) 1.52 K/uL (0.11-0.59); Monocytes % (auto) 7.3 %; Neutrophils # (auto) 18.51 K/uL (1.4-6.5); Neutrophils % (auto) 88.9 %; Platelet Count 328 K/uL (130-400); RDW Coefficient of Variation 13.5 % (11.5-14.5); White Blood Count 20.85 K/uL (4.8-10.8)
[2021-08-25 06:25] LABS: BUN Creatinine Ratio 35.1 (10-20); Calcium 9.1 mg/dl (8.5-10.1); Creatinine Clr Calc Pharmacy 80.1 ml/min; Est GFR (African American) 102.9 ml/min; Est GFR (Non-African American) 88.8 ml/min; Magnesium 1.7 mg/dl (1.7-2.4); Phosphorus 3.6 mg/dl (2.5-4.9); Potassium 4.4 mmol/L (3.5-5.1)
[2021-08-25] MEDS: MAGNESIUM SULFATE / D5W 1 GM/100 ML BAG IV SCH ×3 (06:39→10:53)
--- NOTE | 2021-08-25 07:06 | Electrocardiogram Report ---
Test Reason : Blood Pressure : / mmHG Vent. Rate : 052 BPM Atrial Rate : 052 BPM P-R Int : 080 ms QRS Dur : 148 ms QT Int : 564 ms P-R-T Axes : 032 -88 -05 degrees QTc Int : 524 ms Atrial fibrillation with slow ventricular response with premature ventricular or aberrantly conducted complexes Left axis deviation Right bundle branch block Old Inferior infarct Old Anterolateral infarct Abnormal ECG When compared with ECG of 24-AUG-2021 05:24, No significant change Confirmed by Baldemar Barney ([id number]) on 08/25/2021 7:06:15 AM Referred By: REFERRED SELF Confirmed By:Baldemar Barney
--- NOTE | 2021-08-25 07:07 | Electrocardiogram Report ---
Test Reason : Blood Pressure : / mmHG Vent. Rate : 066 BPM Atrial Rate : 056 BPM P-R Int : 000 ms QRS Dur : 166 ms QT Int : 500 ms P-R-T Axes : 000 258 -44 degrees QTc Int : 524 ms Atrial fibrillation with a competing junctional pacemaker Right bundle branch block Old Inferior infarct Old Anterolateral infarct Abnormal ECG When compared with ECG of 24-AUG-2021 12:29, HR has increased by 14 bpm Otherwise no significant change Confirmed by Baldemar Barney ([id number]) on 08/25/2021 7:07:01 AM Referred By: REFERRED SELF Confirmed By:Baldemar Barney
[2021-08-25] MEDS: PANTOprazole 40 MG in SYRINGE 0 ML IV SCH ×2 (07:37→20:33)
[2021-08-25] MEDS: ATORVASTATIN 40 MG TAB PO SCH (07:39)
[2021-08-25] MEDS: ASPIRIN 81 MG CHEW PO SCH (07:39)
[2021-08-25] MEDS: TICAGRELOR 90 MG TAB PO SCH ×2 (07:40→20:33)
[2021-08-25] MEDS: BACITRACIN OINT 15 GM TUBE EXT SCH (07:40)
--- NOTE | 2021-08-25 08:42 | XRay Report ---
XR chest 1V portable CLINICAL HISTORY: Follow-up respiratory failure.. Status post intubation COMPARISON STUDY: 08/24/2020 TECHNIQUE: 1 view of the chest FINDINGS: Single frontal view of the chest demonstrates the heart size to again be enlarged the aorta atheroscl erotic and ectatic. Endotracheal tube is again seen and unchanged. The lungs are clear of alveolar op acities. There is evidence for underlying emphysema. There is no evidence for pleural effusion. There is no evidence for vascular congestion. There is no acute osseous pathology. IMPRESSION: 1. No significant interval change in the previous study with no acute alveolar opacities or vascular congestion. ACT 112: Negative or not required by law. Electronically signed by: Perez Aguilar M.D. 08/25/2021 8:41 AM
[2021-08-25] MEDS ORDERED: NOREPINEPHRINE/D5W 8 MG/508 ML BAG IV PRN (09:39)
--- NOTE | 2021-08-25 09:40 | Critical Care Progress Note ---
Date of Service August 25, 2021 Assessment & Plan (1) Cardiac arrest: Plan: Reason Critically Ill: 76-year-old male here with a PMHx significant for CAD who presented with collapse, loss of consciousness after exertion who was admitted for cardiac arrest and subsequent anoxic brain injury.. Neuro - [facility] ICU: [NEGATIVE] Sedation: Propofol, midazolam. Analgesia: Meperidine * Reinitiate therapeutic hypothermia. It appears rewarming procedure at 7 PM yesterday did not proceed as gradually as planned. Patient therapeutically cooled again this morning. Will note time of target temperature, then attempt rewarming later. * Continuing Keppra. Can increase dose if clinical concern for seizure activity. Otherwise, reassess tomorrow. Cardiac - -Cardiac arrest status post PCI and right posterolateral branch of RCA. -Patient was in cardiac arrest for unspecified period of time. -Pulses have improved, are now in the 60s. -Per cardiology: appears plan for now is to hold off on any antiarrhythmic intervention unless dysrhythmia persists with V. tach greater than 5 to 10 minutes. * Norepinephrine 0.225 mcg per cake per minute, now as needed * Stopping vasopressin * All other cardiac meds to be given/held as before (atorvastatin, aspirin; still holding metoprolol) Respiratory - -Currently mechanically ventilated. * Stopping serial ABGs. GI - * N.p.o. * Starting tube feeds, per ICU protocol. Nutrition consulted and is aware. * Pantoprazole per ICU bowel protection protocol RENAL/LYTES - * Replete electrolytes per ICU protocol * LR-30 mL/h - [] [No concerns at this time.] ENDO - * Glucose management per ICU protocol. HEME - -Stable H&H. Trend every 6 hours. ID - * Treating empirically for aspiration pneumonia with IV Unasyn 3 g every 6 hours. * Sputum culture sent. Will adjust antibiotic regimen based on results. INTEGUMENTARY - [] LINES/IV ACCESS - -Femoral arterial line x1 on the right -Peripheral IV line x1 on the left wrist. DVT PROPHYLAXIS - * Home anticoagulation held. (2) Laceration of head: (3) CAD (coronary artery disease): (4) Ischemic cardiomyopathy: (5) COPD (chronic obstructive pulmonary disease): (6) Dyslipidemia: (7) Diabetes: (8) Atrial fibrillation, permanent: (9) Hypertension, essential: Admission and Anticipated Discharge Date Admission Date: August 23, 2021 Supervising Physician Co-Signing Physician Notes Patient seen and examined. Discussed on multidisciplinary rounds and with bedside critical care nurse as well as with family practice resident. Agree with assessment plan as noted with the following addendum. Patient completed 24 hours of therapeutic hypothermia. He is rebounding with a fever. We will continue the cooling catheter to maintain euthymia. Will obtain sputum culture and initiate antibiotics in the form of Unasyn for presumed aspiration pneumonia. Antibiotics will be tapered based on results of culture data. Vasopressin off today. Continue to wean norepinephrine. Discontinue propofol and will see where we are neurologically. EEG was reviewed. No obvious seizure activity was identified however there was some slowing. We will see what progress he makes neurologically over the next 24 hours. We will initiate trophic tube feeding and advanced as tolerated once the patient is off pressors. Discussed briefly with cardiology. He is not demonstrated any additional ventricular arrhythmia and holding off on antiarrhythmics currently. He may require additional evaluation including possible AICD if his neurological outcome would be favorable. His overall prognosis remains quite guarded at this point time. We will co ntinue supportive care and reassess for neurological recovery. will be updated at bedside later today Total of 45 minutes critical care time was spent in evaluation management stabilization of this patient with life-threatening illness Subjective Patient is intubated. Minimal response to painful stimuli. Otherwise unresponsive. Review of Systems Review of Systems: All systems reviewed & are unremarkable except as noted in HPI & below Physical Exam Physical Exam: General: Patient is intubated and unresponsive. HEENT: Unable to assesspatient is intubated mechanically. CV: Regular rate and rhythm. Normal S1 and S2. No murmurs gallops or rubs. No pedal edema. Pulmonary: Patient is mechanically intubated. Neuro: Minimally responsive to painful stimuli. No response to voice. Bilateral corneal reflex. Pupils not as pinpoint compared to yesterday. Babins ki reflex negative Results & Data Results & Data ([facility]) Vital Signs (Past 12 Hours) Vital Signs Temp Temp Temp Pulse Resp BP BP 08/25/21 08:00 37.4 C 62 20 111/68 08/25/21 07:26 67 20 08/25/21 07:00 37.6 C H 63 20 119/64 08/25/21 06:40 37.5 C 60 20 08/25/21 06:30 37.4 C 59 L 20 08/25/21 06:20 37.4 C 59 L 08/25/21 06:10 37.4 C 60 20 08/25/21 06:00 37.3 C 54 L 20 118/56 L 08/25/21 05:50 37.3 C 56 L 08/25/21 05:40 37.3 C 56 L 08/25/21 05:30 37.2 C 59 L 08/25/21 05:20 37.2 C 57 L 18 08/25/21 05:10 37.1 C 57 L 08/25/21 05:00 37.1 C 59 L 20 121/62 08/25/21 04:50 36.9 C 55 L 08/25/21 04:40 36.9 C 64 08/25/21 04:30 36.9 C 63 08/25/21 04:20 36.9 C 59 L 08/25/21 04:10 37.0 C 60 08/25/21 04:00 36.9 C 37.0 C 37.0 C 59 L 20 115/60 140/51 L 08/25/21 03:50 36.9 C 52 L 08/25/21 03:40 36.9 C 56 L 08/25/21 03:30 36.9 C 54 L 08/25/21 03:20 36.9 C 57 L 08/25/21 03:10 37.0 C 52 L 08/25/21 03:00 37.0 C 37.0 C 37.0 C 57 L 20 120/52 L 136/49 L 08/25/21 02:50 36.9 C 55 L 08/25/21 02:40 36.7 C 53 L 08/25/21 02:30 36.7 C 57 L 08/25/21 02:20 36.5 C 58 L 08/25/21 02:10 36.4 C L 56 L 08/25/21 02:00 36.4 C L 36.4 C L 36.4 C L 53 L 20 117/67 135/52 L 08/25/21 01:50 36.3 C L 54 L 08/25/21 01:40 36.2 C L 57 L 08/25/21 01:30 36.1 C L 59 L 08/25/21 01:20 36.1 C L 59 L 20 08/25/21 01:10 36.0 C L 58 L 27 H 08/25/21 01:02 36.0 C L 54 L 21 130/59 L 08/25/21 01:00 36.0 C L 36.0 C L 36.0 C L 55 L 22 138/51 L 08/25/21 00:50 36.0 C L 56 L 08/25/21 00:40 36.1 C L 56 L 08/25/21 00:30 36.0 C L 61 18 08/25/21 00:20 36.1 C L 56 L 08/25/21 00:10 36.0 C L 58 L 08/25/21 00:02 36.0 C L 54 L 21 120/50 L 08/25/21 00:00 36.0 C L 36.0 C L 36.0 C L 52 L 19 134/49 L 138/79 08/24/21 23:50 36.0 C L 58 L 08/24/21 23:40 36.0 C L 55 L 08/24/21 23:30 36.1 C L 58 L 25 H 08/24/21 23:20 36.0 C L 58 L 08/24/21 23:10 36.0 C L 57 L 16 08/24/21 23:00 36.0 C L 36.0 C L 36.0 C L 54 L 19 106/56 L 130/49 L 08/24/21 22:50 36.0 C L 58 L 20 08/24/21 22:40 36.0 C L 66 08/24/21 22:30 36.0 C L 56 L 08/24/21 22:20 36.0 C L 61 08/24/21 22:10 36.0 C L 69 08/24/21 22:00 36.0 C L 36.0 C L 36.0 C L 60 21 105/44 L 127/45 L 08/24/21 21:50 36.0 C L 59 L 08/24/21 21:40 36.0 C L 59 L 23 08/24/21 21:30 36.0 C L 63 24 08/24/21 21:20 36.0 C L 59 L 23 BP Pulse Ox 08/25/21 08:00 94 08/25/21 07:26 93 08/25/21 07:00 95 08/25/21 06:40 96 08/25/21 06:30 97 08/25/21 06:20 96 08/25/21 06:10 96 08/25/21 06:00 96 08/25/21 05:50 95 08/25/21 05:40 95 08/25/21 05:30 94 08/25/21 05:20 95 08/25/21 05:10 95 08/25/21 05:00 95 08/25/21 04:50 96 08/25/21 04:40 93 08/25/21 04:30 92 08/25/21 04:20 97 08/25/21 04:10 97 08/25/21 04:00 115/60 97 08/25/21 03:50 97 08/25/21 03:40 97 08/25/21 03:30 97 08/25/21 03:20 97 08/25/21 03:10 97 08/25/21 03:00 120/52 L 98 08/25/21 02:50 97 08/25/21 02:40 97 08/25/21 02:30 97 08/25/21 02:20 97 08/25/21 02:10 98 08/25/21 02:00 117/67 97 08/25/21 01:50 97 08/25/21 01:40 97 08/25/21 01:30 98 08/25/21 01:20 99 08/25/21 01:10 100 08/25/21 01:02 99 08/25/21 01:00 130/59 L 99 08/25/21 00:50 99 08/25/21 00:40 100 08/25/21 00:30 100 08/25/21 00:20 99 08/25/21 00:10 99 08/25/21 00:02 100 08/25/21 00:00 120/50 L 99 08/24/21 23:50 99 08/24/21 23:40 99 08/24/21 23:30 99 08/24/21 23:20 99 08/24/21 23:10 99 08/24/21 23:00 106/56 L 98 08/24/21 22:50 98 08/24/21 22:40 99 08/24/21 22:30 99 08/24/21 22:20 99 08/24/21 22:10 99 08/24/21 22:00 105/44 L 98 08/24/21 21:50 98 08/24/21 21:40 98 08/24/21 21:30 99 08/24/21 21:20 99 Critical Care Results & Data Vital Signs (Past 12 Hours) Vital Signs Temp Temp Temp Pulse Resp BP BP 08/25/21 10:11 69 22 08/25/21 09:00 37.0 C 81 22 143/80 H 08/25/21 08:00 37.4 C 74 20 111/68 08/25/21 07:26 67 20 08/25/21 07:00 37.6 C H 63 20 119/64 08/25/21 06:40 37.5 C 60 20 08/25/21 06:30 37.4 C 59 L 20 08/25/21 06:20 37.4 C 59 L 17 08/25/21 06:10 37.4 C 60 20 08/25/21 06:00 37.3 C 54 L 20 118/56 L 08/25/21 05:50 37.3 C 56 L 18 08/25/21 05:40 37.3 C 56 L 20 08/25/21 05:30 37.2 C 59 L 20 08/25/21 05:20 37.2 C 57 L 18 08/25/21 05:10 37.1 C 57 L 20 08/25/21 05:00 37.1 C 59 L 20 121/62 08/25/21 04:50 36.9 C 55 L 18 08/25/21 04:40 36.9 C 64 20 08/25/21 04:30 36.9 C 63 20 08/25/21 04:20 36.9 C 59 L 18 08/25/21 04:10 37.0 C 60 20 08/25/21 04:00 36.9 C 37.0 C 37.0 C 59 L 20 115/60 140/51 L 08/25/21 03:50 36.9 C 52 L 18 08/25/21 03:40 36.9 C 56 L 20 08/25/21 03:30 36.9 C 54 L 20 08/25/21 03:20 36.9 C 57 L 18 08/25/21 03:10 37.0 C 52 L 20 08/25/21 03:00 37.0 C 37.0 C 37.0 C 57 L 20 120/52 L 136/49 L 08/25/21 02:50 36.9 C 55 L 18 08/25/21 02:40 36.7 C 53 L 20 08/25/21 02:30 36.7 C 57 L 20 08/25/21 02:20 36.5 C 58 L 17 08/25/21 02:10 36.4 C L 56 L 08/25/21 02:00 36.4 C L 36.4 C L 36.4 C L 53 L 20 117/67 135/52 L 08/25/21 01:50 36.3 C L 54 L 08/25/21 01:40 36.2 C L 57 L 08/25/21 01:30 36.1 C L 59 L 08/25/21 01:20 36.1 C L 59 L 08/25/21 01:10 36.0 C L 58 L 27 H 08/25/21 01:02 36.0 C L 54 L 130/59 L 08/25/21 01:00 36.0 C L 36.0 C L 36.0 C L 55 L 22 138/51 L 08/25/21 00:50 36.0 C L 56 L 08/25/21 00:40 36.1 C L 56 L 08/25/21 00:30 36.0 C L 61 18 08/25/21 00:20 36.1 C L 56 L 08/25/21 00:10 36.0 C L 58 L 08/25/21 00:02 36.0 C L 54 L 21 120/50 L 08/25/21 00:00 36.0 C L 36.0 C L 36.0 C L 52 L 19 134/49 L 138/79 08/24/21 23:50 36.0 C L 58 L 08/24/21 23:40 36.0 C L 55 L 08/24/21 23:30 36.1 C L 58 L 25 H 08/24/21 23:20 36.0 C L 58 L 21 08/24/21 23:10 36.0 C L 57 L 16 08/24/21 23:00 36.0 C L 36.0 C L 36.0 C L 54 L 19 106/56 L 130/49 L 08/24/21 22:50 36.0 C L 58 L 20 08/24/21 22:40 36.0 C L 66 21 08/24/21 22:30 36.0 C L 56 L 21 08/24/21 22:20 36.0 C L 61 21 BP Pulse Ox 08/25/21 10:11 95 08/25/21 09:00 100 08/25/21 08:00 94 08/25/21 07:26 93 08/25/21 07:00 95 08/25/21 06:40 96 08/25/21 06:30 97 08/25/21 06:20 96 08/25/21 06:10 96 08/25/21 06:00 96 08/25/21 05:50 95 08/25/21 05:40 95 08/25/21 05:30 94 08/25/21 05:20 95 08/25/21 05:10 95 08/25/21 05:00 95 08/25/21 04:50 96 08/25/21 04:40 93 08/25/21 04:30 92 08/25/21 04:20 97 08/25/21 04:10 97 08/25/21 04:00 115/60 97 08/25/21 03:50 97 08/25/21 03:40 97 08/25/21 03:30 97 08/25/21 03:20 97 08/25/21 03:10 97 08/25/21 03:00 120/52 L 98 08/25/21 02:50 97 08/25/21 02:40 97 08/25/21 02:30 97 08/25/21 02:20 97 08/25/21 02:10 98 08/25/21 02:00 117/67 97 08/25/21 01:50 97 08/25/21 01:40 97 08/25/21 01:30 98 08/25/21 01:20 99 08/25/21 01:10 100 08/25/21 01:02 99 08/25/21 01:00 130/59 L 99 08/25/21 00:50 99 08/25/21 00:40 100 08/25/21 00:30 100 08/25/21 00:20 99 08/25/21 00:10 99 08/25/21 00:02 100 08/25/21 00:00 120/50 L 99 08/24/21 23:50 99 08/24/21 23:40 99 08/24/21 23:30 99 08/24/21 23:20 99 08/24/21 23:10 99 08/24/21 23:00 106/56 L 98 08/24/21 22:50 98 08/24/21 22:40 99 08/24/21 22:30 99 08/24/21 22:20 99 Lab & Micro Results (Past 24 Hours) RBC 4.20 M/uL (4.7-6.1) L 08/25/21 WBC 20.85 K/uL (4.8-10.8) H 08/25/21 Hgb 12.6 g/dL (14.0-18.0) L 08/25/21 Hct 37.3 % (42-52) L 08/25/21 MCV 88.8 fL (80-100) 08/25/21 MCH 30.0 pg (25-34) 08/25/21 MCHC 33.8 g/dL (32-36) 08/25/21 RDW Standard Deviation 44.0 fL (36.4-46.3) 08/25/21 RDW Coefficient of Variation 13.5 % (11.5-14.5) 08/25/21 Plt Count 328 K/uL (130-400) 08/25/21 MPV 11.0 fL (7.4-10.4) H 08/25/21 Neutrophils (%) (Auto) 88.9 % 08/25/21 Lymphocytes (%) (Auto) 3.6 % 08/25/21 Monocytes # (Auto) 1.52 K/uL (0.11-0.59) H 08/25/21 Eosinophils # (Auto) 0.00 K/uL (0-0.5) 08/25/21 Immature Granulocyte % (Auto) 0.2 % 08/25/21 Neutrophils # (Auto) 18.51 K/uL (1.4-6.5) H 08/25/21 Lymphocytes # (Auto) 0.76 K/uL (1.2-3.4) L 08/25/21 Monocytes # (Auto) 1.52 K/uL (0.11-0.59) H 08/25/21 Eosinophils # (Auto) 0.00 K/uL (0-0.5) 08/25/21 Basophils # (Auto) 0.01 K/uL (0-0.2) 08/25/21 Immature Granulocyte # (Auto) 0.05 K/uL (0.00-0.02) H 08/25/21 Echinocytes 1+ 08/24/21 Na 132 mmol/L (136-145) L 08/25/21 K 4.4 mmol/L (3.5-5.1) 08/25/21 Cl 100 mmol/L (98-107) 08/25/21 CO2 24 mmol/L (21-32) 08/25/21 Anion Gap 8 (3-11) 08/25/21 BUN 27 mg/dl (6-23) H 08/25/21 Creatinine 0.77 mg/dl (0.6-1.4) 08/25/21 Estimated GFR ( Amer) 102.9 ml/min 08/25/21 Estimated GFR (Non-Af Amer) 88.8 ml/min 08/25/21 BUN/Creatinine Ratio 35.1 (10-20) H 08/25/21 Glu 146 mg/dl (70-99(Fasting)) H 08/25/21 Ca 9.1 mg/dl (8.5-10.1) 08/25/21 Phosphorus Level 3.6 mg/dl (2.5-4.9) 08/25/21 Mg 1.7 mg/dl (1.7-2.4) 08/25/21 05:41 08/25/21 Calcium Level 9.1 mg/dl (8.5-10.1) 08/25/21 05:41 08/25/21 Horace Test NA 08/25/21 01:07 08/25/21 Diagnostic Findings (Past 24 Hours) Chest X-Ray 08/25/21 07:00 XR chest 1V portable CLINICAL HISTORY: Follow-up respiratory failure.. Status post intubation COMPARISON STUDY: 08/24/2020 TECHNIQUE: 1 view of the chest FINDINGS: Single frontal view of the chest demonstrates the heart size to again be enlarged the aorta atherosclerotic and ectatic. Endotracheal tube is again seen and unchanged. The lungs are clear of alveolar opacities. There is evidence for underlying emphysema. There is no evidence for pleural effusion. There is no evidence for vascular congestion. There is no acute osseous pathology. IMPRESSION: 1. No significant interval change in the previous study with no acute alveolar opacities or vascular congestion. ACT 112: Negative or not required by law. Electronically signed by: Perez Aguilar M.D. 08/25/2021 8:41 AM I & O Totals 24 Hours 08/24/21 08/25/21 08/26/21 06:59 06:59 06:59 Intake Total 1410.161 / 9115.555 1038.484 / 3063.484 467.062 / 467.062 Output Total 1886 / 1946 1145 / 1145 230 / 230 Balance -475.839 / -608.088 0193.484 / 1918.484 237.062 / 237.062 Cumulative 08/23/21 15:57 thru 08/25/21 10:06 Intake Total 4940.707 Output Total 3261 Balance 1679.707 RT Ventilator Mngmt (Last Documented) Ventilator Ordered Settings Ventilator Support Mode Assist Control 08/25/21 10:11 Respiratory Rate 22 08/25/21 10:11 Ventilator Tidal Volume 500 08/25/21 10:11 Setting Minute Ventilation 10.8 08/25/21 10:11 Positive End Expiratory 5 08/25/21 10:11 Pressure Fraction of Inspired Oxygen 30 08/25/21 10:11 Machine Comment titrated FiO2 to 30% post ABG 08/24/21 20:00 Ventilator - PT Measurements Respiratory Rate 22 Exhaled Tidal Volume 509 Minute Ventilation 10.8 Peak Inspiratory Airway 21 Pressure Plateau Pressure 16 Respiratory Cycle Inspiratory: 1:2.3 Expiratory Ratio Inspiratory Phase Time 0.80 End-Tidal CO2 29 Static Lung Compliance 46.27 Dynamic Lung Compliance 31.81 Normal Static Lung Compliance 47.00 Patient Measurements Comment Pt currently on re-warming protocol. Verified with [place] ~ HME removed and heater turned on. RN notified. Resident Activity Tracking Resident Involvement: Resident Care Provided Care Provided: Adult Hospital Medicine
[2021-08-25] MEDS ORDERED: ACETAMINOPHEN SUSP 325 MG/10.15 ML UDC PO PRN (09:58)
--- NOTE | 2021-08-25 10:22 | Billing Data ---
Date of Service August 25, 2021 Coding Level of Care Code Critical Care 1st 30-74 mins Time Spent (min) 45
[2021-08-25] MEDS ORDERED: PEPTAMEN 1.5 CAL 1,000 ML BAG OG SCH (10:30)
--- NOTE | 2021-08-25 10:51 | Cardiology Progress Note ---
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 Hemodynamics stable on vasopressor, wean as able. Recurrent ventricular tachycardia seems to have resolved, no need for antiarrhythmics. Agree with aspirin/atorvastatin, metoprolol held due to hypotension/bradycardia. Prognosis remains grim. Agree that if neurologic status improves, he may be a candidate for ICD for secondary prevention of cardiac arrest. Admission and Anticipated Discharge Date Admission Date: August 23, 2021 Subjective Patient still unresponsive but per nursing has corneal reflexes and some gag reflex. BP normotensive on vasopressors. Frequent ventricular runs have resolved, occasional PVCs only. Physical Exam Physical Exam: Unresponsive, on mechanical ventilation and pressors. BP 143/80 mmHg (on pressors). Pulse 68 bpm and irregular. Skin: no ecchymoses or generalized lesions. HEENT: unremarkable. Neck: Jugular venous pulse not elevated, no obvious carotid bruits. Lungs: clear bilaterally (on ventilator) Cardiac: Irregular rhythm without obvious murmur. Abdomen: benign. Extremities: Chronic stasis changes lower extremities with trace/1+ pretibial edema. Neurologic: Unresponsive, mechanically ventilated, no spontaneous movements. Results & Data ([facility]) Laboratory Results Sodium 132, potassium 4.4, BUN 27, creatinine 0.77. Troponin peaked at 0.61. Diagnostic Findings Echocardiogram showed EF 30 to 35% with mild global hypokinesis and inferior lateral wall akinesis. Mild AI/moderate to severe MR/moderate pulmonary hypertension. Compared with 07/12/2021 study, evidence of reduced cardiac output and systolic function has declined, no notable motion abnormalities or change in valvular disease. Chest x-ray today unremarkable. No infiltrates. Telemetry shows atrial fibrillation with controlled ventricular response, old inferior and anterolateral infarcts. No acute ST change. PG Care Time/CCT Total # of Minutes Spent Total Time Spent with Patient: Total time spent is greater than 50% in coordination of care (as documented) at patient's floor/unit and/or counseling patient: Coding Level of Care Code 93567 Subseq Hosp Care Lvl 3 Diagnoses Cardiac arrest I46.9 Stented coronary artery Z95.5 Ischemic cardiomyopathy I25.5 Old inferior wall myocardial infarction I25.2 CAD (coronary artery disease) I25.10 Atrial fibrillation, permanent I48.21 AMS (altered mental status) R41.82 Altered mental status type: unspecified Recurrent ventricular tachycardia I47.2 (1) AMS (altered mental status) Altered mental status type: unspecified Qualified Code(s): R41.82 - Altered mental status, unspecified
[2021-08-25] MEDS: AMPICILLIN/SULBACTAM SOD 3,000 MG in 0.9 % SODIUM CHLORIDE 100 ML IV SCH ×3 (10:52→22:19)
[2021-08-25] MEDS ORDERED: STAT IV Infusion **Titration per Protocol STA (11:59)
[2021-08-25 12:15] LABS: Basophils # (auto) 0.01 K/uL (0-0.2); Basophils % (auto) 0.1 %; Hemoglobin 12.7 g/dL (14.0-18.0); Immature Granulocytes # (auto) 0.05 K/uL (0.00-0.02); Immature Granulocytes % (auto) 0.3 %; Lymphocytes # (auto) 0.55 K/uL (1.2-3.4); Lymphocytes % (auto) 3.1 %; Mean Corpuscular Hemoglobin 30.2 pg (25-34); Mean Corpuscular Hgb Conc 34.3 g/dL (32-36); Mean Corpuscular Volume 88.1 fL (80-100); Mean Platelet Volume 10.6 fL (7.4-10.4); Monocytes # (auto) 1.39 K/uL (0.11-0.59); Monocytes % (auto) 7.9 %; Neutrophils # (auto) 15.65 K/uL (1.4-6.5); Neutrophils % (auto) 88.6 %; Platelet Count 256 K/uL (130-400); RDW Coefficient of Variation 13.5 % (11.5-14.5); RDW Standard Deviation 43.3 fL (36.4-46.3); White Blood Count 17.65 K/uL (4.8-10.8)
[2021-08-25] MEDS: TUBE FEEDING WATER FLUSH OG SCH ×4 (12:22→23:03)
[2021-08-25 12:48] LABS: BUN Creatinine Ratio 35.4 (10-20); Calcium 8.4 mg/dl (8.5-10.1); Creatinine Clr Calc Pharmacy 78.1 ml/min; Est GFR (African American) 101.8 ml/min; Est GFR (Non-African American) 87.8 ml/min; Magnesium 2.6 mg/dl (1.7-2.4); Phosphorus 3.4 mg/dl (2.5-4.9); Potassium 4.5 mmol/L (3.5-5.1)
--- NOTE | 2021-08-25 13:12 | Pharmacy Report ---
Pharmacy Glycemic Short Note 2 - Date of Service August 25, 2021 - Glycemic Short BSG Results (Last 24 hours): 08/24/21 08/24/21 08/25/21 17:48 17:50 00:29 Glucose 82 108 H POC Glucose (other) 87 08/25/21 08/25/21 08/25/21 00:34 05:41 05:55 Glucose 146 H POC Glucose (other) 115 H 151 H 08/25/21 11:59 Glucose 194 H POC Glucose (other) OUTPATIENT ANTIDIABETIC REGIMEN: * metformin 500mg BID * A1c: 6.5% ASSESSMENT: 08/25: * BSGs have trended down and within goal the last 24h. Pt received no insulin yesterday. * Remains intubated, sedated. Vasopressor support weaned off this AM. Peptamen initiated at [facility] today. * No basal insulin required since 08/23. Given good control (and not on insulin at home), will continue to hold basal at this time. * Prandial insulin adjusted to q4 today w/ coverage for tube feeds. No adjustment to carb/correction, however pending response to initiation of tube feeds, may need tightened further. 08/24 * Patient admitted post cardiac arrest likely experiencing stress induced hyperglycemia. Patient undergoing therapeutic hypothermia and remained sedated on on norepinephrine infusion. * Patient received a one time dose of Lantus last evening * Fasting BSG downtrended significantly to 70mg/dL this morning. As patient actively undergoing therapeutic hypothermia and as BSGs have remained below 120mg/dL, will hold on any additional basal insulin at this time PLAN FOR INPATIENT GLYCEMIC CONTROL: * Hold outpatient oral diabetes medications * Basal insulin * Hold additional basal insulin at this time. * Bolus insulin * NovoLog per scale q4h * Goal Range: Low 120 mg/dL - High 160 mg/dL * Correction Factor: 30 mg/dL/unit * Nutritional / Prandial insulin per carb ratio of 1 unit per 10 grams CHO consumed
[2021-08-25] MEDS: dexMEDEtomidine 200 MCG/50 ML BAG IV SCH ×3 (13:24→22:13)
[2021-08-25 18:05] LABS: Basophils # (auto) 0.01 K/uL (0-0.2); Basophils % (auto) 0.1 %; Hematocrit (blood only) 34.4 % (42-52); Immature Granulocytes # (auto) 0.06 K/uL (0.00-0.02); Immature Granulocytes % (auto) 0.3 %; Lymphocytes # (auto) 1.15 K/uL (1.2-3.4); Lymphocytes % (auto) 5.9 %; Mean Corpuscular Hemoglobin 30.2 pg (25-34); Mean Corpuscular Hgb Conc 34.9 g/dL (32-36); Mean Corpuscular Volume 86.6 fL (80-100); Mean Platelet Volume 10.2 fL (7.4-10.4); Monocytes % (auto) 2.5 %; Neutrophils # (auto) 17.91 K/uL (1.4-6.5); Neutrophils % (auto) 91.2 %; Platelet Count 257 K/uL (130-400); RDW Coefficient of Variation 13.5 % (11.5-14.5); RDW Standard Deviation 43.3 fL (36.4-46.3); Red Blood Count 3.97 M/uL (4.7-6.1); White Blood Count 19.63 K/uL (4.8-10.8)
[2021-08-25 18:29] LABS: BUN Creatinine Ratio 34.2 (10-20); Calcium 8.8 mg/dl (8.5-10.1); Creatinine Clr Calc Pharmacy 78.1 ml/min; Est GFR (African American) 101.8 ml/min; Est GFR (Non-African American) 87.8 ml/min; Magnesium 2.2 mg/dl (1.7-2.4); Potassium 4.2 mmol/L (3.5-5.1)
--- NOTE | 2021-08-25 20:28 | Hospitalist Progress Note ---
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 -If patient responds neurologically, may be a candidate for ICD. will assess mental status once hypothermic protocol is completed -will defer to ICU team. -continue keppra. Discussion with had on admission- she states that they both have DNR/DNI and if he were to arrest again that no intervention be made. (2) Laceration of head: Plan: Following his collapse at home - Cleansed in EMD with Betadine by EMD provider - Will need further irrigation and primary closure likely with elvira - Neruo checks with repeat head CT for any changes following for DASH (3) CAD (coronary artery disease): Plan: Multivessel disease with stenting to RCA, LAD, STEMI in 2001 and 2005 - label paster currently- await results or interventions- JAVED to RCA - Brilinta given in laborer ammunition assembly [id number] - ASA resume when able (4) Ischemic cardiomyopathy: Plan: EF 40-45 % with ECHO performed 07/07 - Initiate IV lasix for diuresing as able post cath - May need inotropic/vasopressor support- pending - Hold ENTRESTO (5) COPD (chronic obstructive pulmonary disease): Plan: Hold his umeclidinium/vilanterol - Xopinex nebs while intubated in ICU- defer to ICU for further Treating empirically for possible Aspiration pneumonia with Unasyn. 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 Review of Systems Review of Systems: Unobtainable due to endotracheal tube Physical Exam Physical Exam: PHYSICAL EXAM: General: Intubated Head: posterior scalp laceration with hematoma Neuro: GCS 3T, Unresponsive, pupils currently 3 non-reactive bilaterally, no withdraw or localization to deep pain, no cough with suctioning and no spontaneous respirations- apnea alarm trigger. Chest: equal rise and fall of the chest, no accessory muscle use, no heaves or thrills, Clear to auscultation, on room air, Cardiac: Regular rate and rhythm, telemetry reviewed- afib, skin warm dry, cap refill <3 seconds, peripheral pulses +2, 2+ edema to bilateral lower legs, pulses weak, skin cold, grade II systolic murmur GI: NABS x 4 quadrants, soft, nontender to palpation, : Tabares to gravity, draining rose urine Psych: Normal mood and affect Skin: varicosities to lower extremity,~3x2 cm laceration to back of head, Results & Data Results & Data ([facility]) Vital Signs (Past 12 Hours) Vital Signs Temp Pulse Resp BP Pulse Ox 08/25/21 19:53 65 24 92 08/25/21 18:00 37.1 C 86 24 139/73 95 08/25/21 17:00 37.0 C 73 22 117/69 08/25/21 16:31 72 25 H 94 08/25/21 16:11 37.0 C 77 23 126/68 93 08/25/21 16:00 37.0 C 75 23 110/74 94 08/25/21 15:00 37.0 C 95 H 25 H 96 08/25/21 14:00 37.0 C 70 21 103/51 L 94 08/25/21 13:00 37.0 C 83 23 119/55 L 94 08/25/21 12:00 37.0 C 105 H 23 136/77 91 08/25/21 11:00 37.0 C 101 H 22 127/60 96 08/25/21 10:11 69 22 95 08/25/21 10:00 37.2 C 82 19 115/66 96 08/25/21 09:40 36.8 C 76 20 106/47 L 96 08/25/21 09:00 37.0 C 81 22 143/80 H 100 PG Care Time/CCT Total # of Minutes Spent Total Time Spent with Patient: Total time spent is greater than 50% in coordination of care (as documented) at patient's floor/unit and/or counseling patient: Coding Level of Care Code 21291 Subseq Hosp Care Lvl 2 Diagnoses Cardiac arrest I46.9 Laceration of head S01.91XA CAD (coronary artery disease) I25.10 Ischemic cardiomyopathy I25.5 COPD (chronic obstructive pulmonary disease) J44.9 Dyslipidemia E78.5 Diabetes E11.9 Atrial fibrillation, permanent I48.21 Hypertension, essential I10
[2021-08-26 00:43] LABS: Eosinophils # (auto) 0.01 K/uL (0-0.5); Hematocrit (blood only) 34.3 % (42-52); Hemoglobin 11.8 g/dL (14.0-18.0); Immature Granulocytes # (auto) 0.08 K/uL (0.00-0.02); Immature Granulocytes % (auto) 0.4 %; Lymphocytes # (auto) 1.16 K/uL (1.2-3.4); Lymphocytes % (auto) 5.3 %; Mean Corpuscular Hgb Conc 34.4 g/dL (32-36); Mean Corpuscular Volume 87.3 fL (80-100); Mean Platelet Volume 10.4 fL (7.4-10.4); Monocytes # (auto) 0.93 K/uL (0.11-0.59); Monocytes % (auto) 4.2 %; Neutrophils # (auto) 19.82 K/uL (1.4-6.5); Neutrophils % (auto) 90.1 %; Platelet Count 275 K/uL (130-400); RDW Coefficient of Variation 13.4 % (11.5-14.5); Red Blood Count 3.93 M/uL (4.7-6.1)
[2021-08-26] MEDS: dexMEDEtomidine 200 MCG/50 ML BAG IV SCH ×8 (00:50→22:35)
[2021-08-26 01:02] LABS: BUN Creatinine Ratio 38.9 (10-20); Calcium 8.8 mg/dl (8.5-10.1); Creatinine Clr Calc Pharmacy 85.6 ml/min; Est GFR (African American) 105.8 ml/min; Est GFR (Non-African American) 91.3 ml/min; Magnesium 2.2 mg/dl (1.7-2.4); Phosphorus 3.1 mg/dl (2.5-4.9); Potassium 4.2 mmol/L (3.5-5.1)
[2021-08-26] MEDS ORDERED: fentaNYL citrate 100 MCG/2 ML VIAL ONE (01:27)
[2021-08-26] MEDS ORDERED: fentaNYL citrate 100 MCG/2 ML VIAL IV STA (01:52)
[2021-08-26] MEDS ORDERED: MIDAZOLAM HCL 1 MG/ML 2ML VIAL IV STA (01:52)
[2021-08-26] MEDS ORDERED: MIDAZOLAM HCL 1 MG/ML 2ML VIAL ONE (01:54)
[2021-08-26 03:23] LABS: iSTAT Art Bld Gas pCO2 Correct 36 mmHg (35-46); iSTAT Art Bld Gas pH Corrected 7.455 (7.35-7.45); iSTAT Arterial Blood Gas HCO3 26 meg/L (19-24); iSTAT Arterial Blood Gas pCO2 36 mmHg (35-46); iSTAT Arterial Blood Gas pH 7.46 (7.35-7.45); iSTAT Arterial Blood Gas pO2 56 mmHg (80-95); iSTAT Arterial Blood Gas pO2 C 56; iSTAT Carbon Dioxide 27 mmol/L (24-31); iSTAT FiO2 30 %; iSTAT Hematocrit 35 % (42-52); iSTAT Hemoglobin 11.9 g/dl (14.0-18.0); iSTAT Potassium 4.2 mmol/L (3.3-5.0); iSTAT Site Art Line; iSTAT Sodium 134 mmol/L (135-144)
[2021-08-26] MEDS: TUBE FEEDING WATER FLUSH OG SCH ×6 (04:24→22:00)
[2021-08-26] MEDS: AMPICILLIN/SULBACTAM SOD 3,000 MG in 0.9 % SODIUM CHLORIDE 100 ML IV SCH ×4 (04:27→22:00)
[2021-08-26] MEDS: INSULIN ASPART PER UNIT SC SCH ×5 (04:45→20:42)
[2021-08-26] MEDS: levETIRAcetam 500 MG in 0.9 % SODIUM CHLORIDE 100 ML IV SCH ×2 (05:04→18:42)
[2021-08-26 05:44] LABS: Hematocrit (blood only) 34.2 % (42-52); Hemoglobin 11.8 g/dL (14.0-18.0); Immature Granulocytes # (auto) 0.05 K/uL (0.00-0.02); Immature Granulocytes % (auto) 0.2 %; Lymphocytes # (auto) 1.07 K/uL (1.2-3.4); Lymphocytes % (auto) 4.9 %; Mean Corpuscular Hemoglobin 30.2 pg (25-34); Mean Corpuscular Hgb Conc 34.5 g/dL (32-36); Mean Corpuscular Volume 87.5 fL (80-100); Mean Platelet Volume 10.7 fL (7.4-10.4); Monocytes % (auto) 5.1 %; Neutrophils # (auto) 19.47 K/uL (1.4-6.5); Neutrophils % (auto) 89.8 %; Platelet Count 253 K/uL (130-400); RDW Coefficient of Variation 13.5 % (11.5-14.5); RDW Standard Deviation 43.3 fL (36.4-46.3); Red Blood Count 3.91 M/uL (4.7-6.1); White Blood Count 21.69 K/uL (4.8-10.8)
[2021-08-26 06:06] LABS: BUN Creatinine Ratio 37.7 (10-20); Calcium 8.9 mg/dl (8.5-10.1); Creatinine Clr Calc Pharmacy 89.4 ml/min; Est GFR (African American) 107.6 ml/min; Est GFR (Non-African American) 92.9 ml/min; Phosphorus 3.1 mg/dl (2.5-4.9); Potassium 4.1 mmol/L (3.5-5.1)
[2021-08-26] MEDS: LACTATED RINGER'S 1,000 ML IV SCH (06:20)
[2021-08-26] MEDS: NOREPINEPHRINE/D5W 8 MG/508 ML BAG IV SCH ×2 (08:15→14:03)
--- NOTE | 2021-08-26 08:15 | XRay Report ---
XR chest 1V portable HISTORY: Respiratory failure. Follow-up. COMPARISON: Chest 08/25/2021. FINDINGS: Endotracheal tube terminates approximately 6.2 cm from the lorena. No pneumothorax. The hea rt remains enlarged. Calcified right hilar/paratracheal lymph nodes are again noted. Rotated study. N o new focal lung consolidations to suggest pneumonia. No evidence for pulmonary edema. No pleural eff usions. Nasogastric tube terminates in the stomach. Emphysema again noted. IMPRESSION: 1. Endotracheal tube terminates 6.2 cm from the lorena. This could be advanced by approximately 2 cm. 2. Cardiomegaly. 3. Emphysema. ACT 112: Negative or not required by law. Electronically signed by: Osman Rodriguez M.D. 08/26/2021 8:14 AM
--- NOTE | 2021-08-26 08:34 | Cardiology Progress Note ---
Date of Service August 26, 2021 Assessment & Plan (1) Cardiac arrest: (2) Stented coronary artery: (3) Ischemic cardiomyopathy: (4) Old inferior wall myocardial infarction: (5) CAD (coronary artery disease): (6) Atrial fibrillation, permanent: (7) AMS (altered mental status): (8) Recurrent ventricular tachycardia: Plan: No new cardiac recommendations. Still with marked neurologic impairment. Hemodynamics stable on vasopressor, wean as able. Recurrent ventricular tachycardia seems to have resolved, no need for antiarrhythmics. Agree with aspirin/atorvastatin, metoprolol held due to hypotension. Prognosis remains grim. Admission and Anticipated Discharge Date Admission Date: August 23, 2021 Subjective Patient still unresponsive and mechanically ventilated. BP normotensive on vasopressors, attempt to wean yesterday resulted in hypotension Frequent ventricular runs have not been present over the past 48 hours, occasional PVCs only. Physical Exam Physical Exam: Unresponsive, on mechanical ventilation and pressors. BP 126/68 mmHg (on pressors). Pulse 88 bpm and irregular. Skin: no ecchymoses or generalized lesions. HEENT: unremarkable. Neck: Jugular venous pulse not elevated, no obvious carotid bruits. Lungs: clear bilaterally (on ventilator) Cardiac: Irregular rhythm without obvious murmur. Abdomen: benign. Extremities: Somewhat cool, mildly delayed capillary refill, chronic stasis changes lower extremities with trace/1+ pretibial edema. Neurologic: Unresponsive, mechanically ventilated, no spontaneous movements. Results & Data ([facility]) Laboratory Results Sodium 131, otherwise normal electrolytes, BUN 26, creatinine 0.69. Hemoglobin level 11.8. PG Care Time/CCT Total # of Minutes Spent Total Time Spent with Patient: Total time spent is greater than 50% in coordination of care (as documented) at patient's floor/unit and/or counseling patient: Coding Level of Care Code 57235 Subseq Hosp Care Lvl 2 Diagnoses Cardiac arrest I46.9 Stented coronary artery Z95.5 Ischemic cardiomyopathy I25.5 Old inferior wall myocardial infarction I25.2 CAD (coronary artery disease) I25.10 Atrial fibrillation, permanent I48.21 AMS (altered mental status) R41.82 Altered mental status type: unspecified Recurrent ventricular tachycardia I47.2 (1) AMS (altered mental status) Altered mental status type: unspecified Qualified Code(s): R41.82 - Altered mental status, unspecified
[2021-08-26] MEDS: TICAGRELOR 90 MG TAB PO SCH ×2 (09:00→20:55)
[2021-08-26] MEDS: ASPIRIN 81 MG CHEW PO SCH (09:00)
[2021-08-26] MEDS: MULTI VIT W/MINERALS LIQUID 15 ML UDP NG SCH (09:00)
[2021-08-26] MEDS: ATORVASTATIN 40 MG TAB PO SCH (09:00)
[2021-08-26] MEDS: BACITRACIN OINT 15 GM TUBE EXT SCH (09:02)
[2021-08-26] MEDS: PANTOprazole 40 MG in SYRINGE 0 ML IV SCH ×2 (09:18→20:44)
--- NOTE | 2021-08-26 10:17 | Critical Care Progress Note ---
Date of Service August 26, 2021 Assessment & Plan (1) Cardiac arrest: Plan: Impression: 76-year-old male here with a PMHx significant for CAD who presented with old-xz-[id number] cardiac arrest, loss of consciousness after exertion who was admitted for cardiac arrest and subsequent anoxic brain injury.. 24-hour events: Patient was transitioned to Precedex. Attempts to wean pressors have been unsuccessful. He tolerated pressure support ventilation for about 15 minutes earlier today then had to be returned to a rate due to tachypnea and low tidal volumes. Recommendations: Neuro -patient completed 24 hours of therapeutic hypothermia. His neurological exam is not grade currently. No evidence of continued seizure. Continue Keppra at this point time. We will continue Precedex as needed to maintain ventilator synchrony. Discussed with the patient's extensively. She states the patient would not be want to be maintained requiring mechanical support. This would include long-term enteral nutrition or tracheostomy tube. She would like to extubate the patient but due to weather cannot arrive until tomorrow. We will plan on extubating the patient tomorrow and seeing how he does. If he does poorly, will rapidly transition to a palliative care/comfort focused approach and allow the patient to pass normally. Hold additional sedation such as propofol and benzodiazepines as well as narcotics at this point time. Cardiac -kpi-ya-qgxceqiv cardiac arrest status post PCI to the right coronary artery. He remains hemodynamically unstable and on pressor agents. He has had a few issues of ventricular tachycardia but no VT storm. Holding beta-marie. No antiarrhythmics currently. Continue aspirin and Lipitor as well as Brilinta Respiratory -continue mechanical ventilation currently. The patient does not appear able to maintain oxygenation or ventilation for prolonged period of time off support. See comments above. Continue mechanical ventilation today. He has a history of advanced COPD. Not bronchospastic. No indication for steroids or antibiotics currently. GI -trophic tube feeds in place. Continue Protonix. RENAL/LYTES -acid-base status and volume status acceptable. Kidney function appropriate. Will discontinue IV fluids. Continue free water via OG tube -Tabares catheter in place ENDO -glycemic management per pharmacy HEME -no current issues. ID -possible aspiration pneumonia: Day #2 Unasyn. Await respiratory cultures. Continue cooling catheter to maintain you thermia. LINES/IV ACCESS - -Femoral arterial line x1 on the right -Peripheral IV line x1 on the left wrist. DVT PROPHYLAXIS -SCDs Patient is critically ill at this point time with significant probability of clinical deterioration and/or . Extensively discussed with patient's . She states the patient has clearly expressed his desire to not be maintained in an artificial situation for prolonged period of time. She specifically states the patient would not want PEG tube or tracheostomy tube placement. She believes that we have given him an adequate chance for survival and at this point time she would like to discontinue artificial support and see how the patient does with plans to rapidly transition to comfort care measures if it appears the patient is not going to recover. Due to weather, these interventio ns will likely take place in the next 24 hours when she cannot make it to the hospital. She confirms that no additional interventions should be undertaken should the patient's clinical condition deteriorate currently. 55 minutes critical care time spent in evaluation management stabilization of this patient including end-of-life issues. (2) Laceration of head: (3) CAD (coronary artery disease): (4) Ischemic cardiomyopathy: (5) COPD (chronic obstructive pulmonary disease): (6) Dyslipidemia: (7) Diabetes: (8) Atrial fibrillation, permanent: (9) Hypertension, essential: Admission and Anticipated Discharge Date Admission Date: August 23, 2021 Subjective Patient remains intubated. He is sedated on Precedex. He continues to be dependent on vasopressors Review of Systems Review of Systems: Unobtainable due to endotracheal tube and Unobtainable due to reduced consciousness Physical Exam Constitutional: WD/WN, vitals as above Neck: trachea midline, no thyromegaly Respiratory: normal respiratory effort, lungs clear to auscultation Cardiovascular: RRR, no murmur, no edema Gastrointestinal (Abdomen): normal bowel sounds, soft, nontender, no hepatosplenomegaly Musculoskeletal: Extremities: extremities normal to inspection Skin: no rashes, warm and dry Neurologic: Pupils sluggishly reactive. Eyes are conjugate today. Corneal reflexes are present. He overbreathing the vent. No withdrawal to painful stimulus in bilateral upper and lower extremities. Lymphatic: no cervical lymphadenopathy Results & Data Results & Data ([facility]) Vital Signs (Past 12 Hours) Vital Signs Temp Pulse Resp BP Pulse Ox 08/26/21 07:53 89 26 H 94 08/26/21 06:40 37.1 C 86 24 99 08/26/21 06:30 37.1 C 72 22 98 08/26/21 06:20 37.1 C 58 L 20 97 08/26/21 06:10 37.0 C 67 22 97 08/26/21 06:00 37.0 C 64 25 H 126/68 08/26/21 05:50 37.0 C 53 L 21 97 08/26/21 05:40 37.1 C 48 L 20 96 08/26/21 05:30 37.1 C 55 L 23 97 08/26/21 05:20 37.1 C 58 L 20 98 08/26/21 05:10 37.0 C 81 25 H 99 08/26/21 05:00 37.0 C 61 22 117/64 08/26/21 04:50 37.1 C 62 21 98 08/26/21 04:40 37.1 C 80 25 H 99 08/26/21 04:30 37.1 C 72 23 97 08/26/21 04:20 37.1 C 71 25 H 97 08/26/21 04:10 37.1 C 80 25 H 97 08/26/21 04:00 37.0 C 67 23 137/92 96 08/26/21 03:50 37.1 C 59 L 21 97 08/26/21 03:40 37.1 C 44 L 21 94 08/26/21 03:30 37.1 C 48 L 21 92 08/26/21 03:20 37.0 C 48 L 23 93 08/26/21 03:10 37.0 C 45 L 22 93 08/26/21 03:00 37.0 C 57 L 21 106/57 L 08/26/21 02:50 37.1 C 54 L 22 98 08/26/21 02:43 48 L 21 93 08/26/21 02:40 37.1 C 64 26 H 100 08/26/21 02:30 37.0 C 46 L 20 92 08/26/21 02:20 37.0 C 47 L 20 93 08/26/21 02:10 37.0 C 53 L 17 94 08/26/21 02:00 37.0 C 56 L 20 121/62 93 08/26/21 01:50 37.1 C 54 L 22 94 08/26/21 01:45 37.2 C 38 L 20 76/52 L 08/26/21 01:40 37.1 C 57 L 18 90 08/26/21 01:30 37.1 C 85 29 H 93 08/26/21 01:20 37.0 C 83 27 H 95 08/26/21 01:10 37.0 C 59 L 24 94 08/26/21 01:00 37.0 C 59 L 23 121/72 08/26/21 00:50 37.1 C 44 L 21 92 08/26/21 00:40 37.0 C 59 L 23 94 08/26/21 00:30 37.1 C 52 L 23 91 08/26/21 00:20 37.0 C 56 L 22 91 08/26/21 00:10 37.0 C 56 L 24 93 08/26/21 00:00 37.0 C 69 23 139/83 93 08/25/21 23:50 37.1 C 58 L 21 91 08/25/21 23:40 37.1 C 46 L 22 90 08/25/21 23:30 37.0 C 51 L 20 92 08/25/21 23:20 37.0 C 61 23 94 08/25/21 23:10 37.0 C 48 L 20 91 08/25/21 23:00 37.1 C 56 L 21 88/46 L 08/25/21 22:50 37.1 C 65 23 93 08/25/21 22:40 37.1 C 79 25 H 94 08/25/21 22:30 37.1 C 95 H 29 H 96 08/25/21 22:25 100 H 38 H 95 08/25/21 22:20 37.0 C 79 25 H 94 08/25/21 22:10 37.0 C 82 21 96 Critical Care Results & Data Vital Signs (Past 12 Hours) Vital Signs Temp Pulse Resp BP Pulse Ox 08/26/21 07:53 89 26 H 94 08/26/21 06:40 37.1 C 86 24 99 08/26/21 06:30 37.1 C 72 22 98 08/26/21 06:20 37.1 C 58 L 20 97 08/26/21 06:10 37.0 C 67 22 97 08/26/21 06:00 37.0 C 64 25 H 126/68 08/26/21 05:50 37.0 C 53 L 21 97 08/26/21 05:40 37.1 C 48 L 20 96 08/26/21 05:30 37.1 C 55 L 23 97 08/26/21 05:20 37.1 C 58 L 20 98 08/26/21 05:10 37.0 C 81 25 H 99 08/26/21 05:00 37.0 C 61 22 117/64 08/26/21 04:50 37.1 C 62 21 98 08/26/21 04:40 37.1 C 80 25 H 99 08/26/21 04:30 37.1 C 72 23 97 08/26/21 04:20 37.1 C 71 25 H 97 08/26/21 04:10 37.1 C 80 25 H 97 08/26/21 04:00 37.0 C 67 23 137/92 96 08/26/21 03:50 37.1 C 59 L 21 97 08/26/21 03:40 37.1 C 44 L 21 94 08/26/21 03:30 37.1 C 48 L 21 92 08/26/21 03:20 37.0 C 48 L 23 93 08/26/21 03:10 37.0 C 45 L 22 93 08/26/21 03:00 37.0 C 57 L 21 106/57 L 08/26/21 02:50 37.1 C 54 L 22 98 08/26/21 02:43 48 L 21 93 08/26/21 02:40 37.1 C 64 26 H 100 08/26/21 02:30 37.0 C 46 L 20 92 08/26/21 02:20 37.0 C 47 L 20 93 08/26/21 02:10 37.0 C 53 L 17 94 08/26/21 02:00 37.0 C 56 L 20 121/62 93 08/26/21 01:50 37.1 C 54 L 22 94 08/26/21 01:45 37.2 C 38 L 20 76/52 L 08/26/21 01:40 37.1 C 57 L 18 90 08/26/21 01:30 37.1 C 85 29 H 93 08/26/21 01:20 37.0 C 83 27 H 95 08/26/21 01:10 37.0 C 59 L 24 94 08/26/21 01:00 37.0 C 59 L 23 121/72 03/12/22 00:50 37.1 C 44 L 21 92 08/26/21 00:40 37.0 C 59 L 23 94 08/26/21 00:30 37.1 C 52 L 23 91 08/26/21 00:20 37.0 C 56 L 22 91 08/26/21 00:10 37.0 C 56 L 24 93 08/26/21 00:00 37.0 C 69 23 139/83 93 08/25/21 23:50 37.1 C 58 L 21 91 08/25/21 23:40 37.1 C 46 L 22 90 08/25/21 23:30 37.0 C 51 L 20 92 08/25/21 23:20 37.0 C 61 23 94 08/25/21 23:10 37.0 C 48 L 20 91 08/25/21 23:00 37.1 C 56 L 21 88/46 L 08/25/21 22:50 37.1 C 65 23 93 08/25/21 22:40 37.1 C 79 25 H 94 08/25/21 22:30 37.1 C 95 H 29 H 96 08/25/21 22:25 100 H 38 H 95 08/25/21 22:20 37.0 C 79 25 H 94 08/25/21 22:10 37.0 C 82 21 96 Lab & Micro Results (Past 24 Hours) RBC 3.91 M/uL (4.7-6.1) L 08/26/21 WBC 21.69 K/uL (4.8-10.8) H 08/26/21 Hgb 11.8 g/dL (14.0-18.0) L 08/26/21 Hct 34.2 % (42-52) L 08/26/21 MCV 87.5 fL (80-100) 08/26/21 MCH 30.2 pg (25-34) 08/26/21 MCHC 34.5 g/dL (32-36) 08/26/21 RDW Standard Deviation 43.3 fL (36.4-46.3) 08/26/21 RDW Coefficient of Variation 13.5 % (11.5-14.5) 08/26/21 Plt Count 253 K/uL (130-400) 08/26/21 MPV 10.7 fL (7.4-10.4) H 08/26/21 Neutrophils (%) (Auto) 89.8 % 08/26/21 Lymphocytes (%) (Auto) 4.9 % 08/26/21 Monocytes # (Auto) 1.10 K/uL (0.11-0.59) H 08/26/21 Eosinophils # (Auto) 0.00 K/uL (0-0.5) 08/26/21 Immature Granulocyte % (Auto) 0.2 % 08/26/21 Neutrophils # (Auto) 19.47 K/uL (1.4-6.5) H 08/26/21 Lymphocytes # (Auto) 1.07 K/uL (1.2-3.4) L 08/26/21 Monocytes # (Auto) 1.10 K/uL (0.11-0.59) H 08/26/21 Eosinophils # (Auto) 0.00 K/uL (0-0.5) 08/26/21 Basophils # (Auto) 0.00 K/uL (0-0.2) 08/26/21 Immature Granulocyte # (Auto) 0.05 K/uL (0.00-0.02) H 08/26/21 Na 131 mmol/L (136-145) L 08/26/21 K 4.1 mmol/L (3.5-5.1) 08/26/21 Cl 101 mmol/L (98-107) 08/26/21 CO2 26 mmol/L (21-32) 08/26/21 Anion Gap 4 (3-11) 08/26/21 BUN 26 mg/dl (6-23) H 08/26/21 Creatinine 0.69 mg/dl (0.6-1.4) 08/26/21 Estimated GFR ( Amer) 107.6 ml/min 08/26/21 Estimated GFR (Non-Af Amer) 92.9 ml/min 08/26/21 BUN/Creatinine Ratio 37.7 (10-20) H 08/26/21 Glu 192 mg/dl (70-99(Fasting)) H 08/26/21 Ca 8.9 mg/dl (8.5-10.1) 08/26/21 Phosphorus Level 3.1 mg/dl (2.5-4.9) 08/26/21 Mg 2.0 mg/dl (1.7-2.4) 08/26/21 05:26 08/26/21 Calcium Level 8.9 mg/dl (8.5-10.1) 08/26/21 05:26 08/26/21 Horace Test NA 08/26/21 03:10 08/26/21 Microbiology 08/25/21 Unknown Gram Stain - Final Sputum,Vent Suction Diagnostic Findings (Past 24 Hours) Chest X-Ray 08/26/21 07:00 XR chest 1V portable HISTORY: Respiratory failure. Follow-up. COMPARISON: Chest 08/25/2021. FINDINGS: Endotracheal tube terminates approximately 6.2 cm from the lorena. No pneumothorax. The heart remains enlarged. Calcified right hilar/paratracheal lymph nodes are again noted. Rotated study. No new focal lung consolidations to suggest pneumonia. No evidence for pulmonary edema. No pleural effusions. Nasogastric tube terminates in the stomach. Emphysema again noted. IMPRESSION: 1. Endotracheal tube terminates 6.2 cm from the lorena. This could be advanced by approximately 2 cm. 2. Cardiomegaly. 3. Emphysema. ACT 112: Negative or not required by law. Electronically signed by: Osman Rodriguez M.D. 08/26/2021 8:14 AM I & O Totals 24 Hours 08/25/21 08/26/21 08/27/21 06:59 06:59 07:59 Intake Total 3063.484 / 3063.484 3091.081 / 3091.081 50 / 50 Output Total 1145 / 1145 1100 / 1100 Balance 1918.484 / 4827.620 6076.081 / 1990.081 50 / 50 Cumulative 08/23/21 15:57 thru 08/26/21 07:44 Intake Total 7614.726 Output Total 4131 Balance 3483.726 RT Ventilator Mngmt (Last Documented) Ventilator Ordered Settings Ventilator Support Mode Assist Control 08/26/21 07:53 Respiratory Rate 26 08/26/21 07:53 Ventilator Tidal Volume 500 08/26/21 07:53 Setting Minute Ventilation 11.8 08/26/21 07:53 Positive End Expiratory 5 08/26/21 07:53 Pressure Fraction of Inspired Oxygen 30 08/26/21 07:53 Peak Inspiratory Flow 50 08/26/21 07:53 Machine Comment titrated FiO2 to 30% post ABG 08/24/21 20:00 Ventilator - PT Measurements Respiratory Rate 26 Exhaled Tidal Volume 499 Minute Ventilation 11.8 Peak Inspiratory Airway 29 Pressure Plateau Pressure 23 Respiratory Cycle Inspiratory: 1:1.5 Expiratory Ratio Inspiratory Phase Time 0.8 End-Tidal CO2 31 Static Lung Compliance 27.72 Dynamic Lung Compliance 20.79 Normal Static Lung Compliance 46.00 Patient Measurements Comment peak pressures in the 40s due to secretions- lavaged several times. Coding Level of Care Code Critical Care 1st 30-74 mins Diagnoses Cardiac arrest I46.9 Laceration of head S01.91XA CAD (coronary artery disease) I25.10 Ischemic cardiomyopathy I25.5 COPD (chronic obstructive pulmonary disease) J44.9 Dyslipidemia E78.5 Diabetes E11.9 Atrial fibrillation, permanent I48.21 Hypertension, essential I10 Time Spent (min) 55
--- NOTE | 2021-08-26 11:36 | Hospitalist Progress Note ---
Date of Service August 26, 2021 Assessment & Plan (1) Cardiac arrest: Plan: Patient s/p arrest with on site CPR and recovered ROSC x2 shocks with arrival of EMS - Unknown down time- no reports of spontaneous movement or eye opening - taken to lab support service tech - stenting done - remains intubated - ongoing management per ICU // per discussions with family team previously had discussion with had on admission- she states that they both have DNR/DNI and if he were to arrest again that no intervention be made. (2) CAD (coronary artery disease): Plan: Multivessel disease with stenting to RCA, LAD, STEMI in 2001 and 2005 - stented RCA at admission (3) Ischemic cardiomyopathy: Plan: EF 30-35% (4) COPD (chronic obstructive pulmonary disease): Plan: on ventilator. management per ICU. on unasyn for presumed aspiration pneumonia (5) Laceration of head: Plan: Following his collapse at home - approximated. ongoing local wound care (6) Dyslipidemia: (7) Diabetes: Plan: A1c 6.5, glucoses inpatient overall have been reasonable. continue insulin management (8) Atrial fibrillation, permanent: Plan: rate controlled, chronically anticoagulated w pradaxa. (9) Hypertension, essential: Plan: remains critically ill. ICU having ongoing discussions w family regarding goals of care Admission and Anticipated Discharge Date Admission Date: August 23, 2021 Subjective intubated. no meaningful HPI obtainable. case d/w nursing. Review of Systems Review of Systems: Unobtainable due to cognitive status Physical Exam Physical Exam: intubated, sedated. no focal neuro asymmetry at rest. breathing even rise and fall on vent. skin without significant pallor, does appear somewhat ashen Results & Data Results & Data ([facility]) Vital Signs (Past 12 Hours) Vital Signs Temp Pulse Resp BP Pulse Ox 08/26/21 11:10 96 H 23 92 08/26/21 11:00 98.8 F 69 23 93 08/26/21 10:01 98.6 F 63 24 88 L 08/26/21 10:00 98.6 F 61 24 72/42 L 08/26/21 09:01 99.9 F H 72 26 H 91 08/26/21 09:00 99.9 F H 63 27 H 117/65 91 08/26/21 08:01 99.3 F 66 21 90 08/26/21 08:00 99.3 F 52 L 21 81/45 L 08/26/21 07:53 89 26 H 94 08/26/21 07:00 98.8 F 96 H 26 H 130/87 99 08/26/21 06:40 98.8 F 86 24 99 08/26/21 06:30 98.8 F 72 22 98 08/26/21 06:20 98.8 F 58 L 20 97 08/26/21 06:10 98.6 F 67 22 97 08/26/21 06:00 98.6 F 64 25 H 126/68 08/26/21 05:50 98.6 F 53 L 21 97 08/26/21 05:40 98.8 F 48 L 20 96 08/26/21 05:30 98.8 F 55 L 23 97 08/26/21 05:20 98.8 F 58 L 20 98 08/26/21 05:10 98.6 F 81 25 H 99 08/26/21 05:00 98.6 F 61 22 117/64 08/26/21 04:50 98.8 F 62 21 98 08/26/21 04:40 98.8 F 80 25 H 99 08/26/21 04:30 98.8 F 72 23 97 08/26/21 04:20 98.8 F 71 25 H 97 08/26/21 04:10 98.8 F 80 25 H 97 08/26/21 04:00 98.6 F 67 23 137/92 96 08/26/21 03:50 98.8 F 59 L 21 97 08/26/21 03:40 98.8 F 44 L 21 94 08/26/21 03:30 98.8 F 48 L 21 92 08/26/21 03:20 98.6 F 48 L 23 93 08/26/21 03:10 98.6 F 45 L 22 93 08/26/21 03:00 98.6 F 57 L 21 106/57 L 08/26/21 02:50 98.8 F 54 L 22 98 08/26/21 02:43 48 L 21 93 08/26/21 02:40 98.8 F 64 26 H 100 08/26/21 02:30 98.6 F 46 L 20 92 08/26/21 02:20 98.6 F 47 L 20 93 08/26/21 02:10 98.6 F 53 L 17 94 08/26/21 02:00 98.6 F 56 L 20 121/62 93 08/26/21 01:50 98.8 F 54 L 22 94 08/26/21 01:45 99.0 F 38 L 20 76/52 L 08/26/21 01:40 98.8 F 57 L 18 90 08/26/21 01:30 98.8 F 85 29 H 93 08/26/21 01:20 98.6 F 83 27 H 95 08/26/21 01:10 98.6 F 59 L 24 94 08/26/21 01:00 98.6 F 59 L 23 121/72 08/26/21 00:50 98.8 F 44 L 21 92 08/26/21 00:40 98.6 F 59 L 23 94 08/26/21 00:30 98.8 F 52 L 23 91 08/26/21 00:20 98.6 F 56 L 22 91 08/26/21 00:10 98.6 F 56 L 24 93 08/26/21 00:00 98.6 F 69 23 139/83 93 08/25/21 23:50 98.8 F 58 L 21 91 08/25/21 23:40 98.8 F 46 L 22 90 08/25/21 23:30 98.6 F 51 L 20 92 PG Care Time/CCT Total # of Minutes Spent Total Time Spent with Patient: Total time spent is greater than 50% in coordination of care (as documented) at patient's floor/unit and/or counseling patient: Coding Level of Care Code 84286 Subseq Hosp Care Lvl 1 Diagnoses Cardiac arrest I46.9 Laceration of head S01.91XA CAD (coronary artery disease) I25.10 Ischemic cardiomyopathy I25.5 COPD (chronic obstructive pulmonary disease) J44.9 Dyslipidemia E78.5 Diabetes E11.9 Atrial fibrillation, permanent I48.21 Hypertension, essential I10
[2021-08-26] MEDS ORDERED: MIDAZOLAM HCL 1 MG/ML 2ML VIAL IV PRN (13:11)
[2021-08-26] MEDS ORDERED: fentaNYL citrate 100 MCG/2 ML VIAL IV PRN (13:11)
[2021-08-26] MEDS: ICU ELECTROLYTE REPLACEMENT PROTOCOL SCH (18:36)
[2021-08-27] MEDS: INSULIN ASPART PER UNIT SC SCH ×4 (00:21→12:48)
[2021-08-27] MEDS: dexMEDEtomidine 200 MCG/50 ML BAG IV SCH ×2 (03:09→06:21)
[2021-08-27] MEDS: TUBE FEEDING WATER FLUSH OG SCH ×3 (03:11→10:49)
[2021-08-27] MEDS: NOREPINEPHRINE/D5W 8 MG/508 ML BAG IV SCH (03:45)
[2021-08-27] MEDS: AMPICILLIN/SULBACTAM SOD 3,000 MG in 0.9 % SODIUM CHLORIDE 100 ML IV SCH ×2 (04:08→11:38)
[2021-08-27 04:30] LABS: iSTAT Art Bld Gas pCO2 Correct 42 mmHg (35-46); iSTAT Art Bld Gas pH Corrected 7.414 (7.35-7.45); iSTAT Arterial Blood Gas HCO3 27 meg/L (19-24); iSTAT Arterial Blood Gas pCO2 41 mmHg (35-46); iSTAT Arterial Blood Gas pH 7.42 (7.35-7.45); iSTAT Arterial Blood Gas pO2 61 mmHg (80-95); iSTAT Arterial Blood Gas pO2 C 62; iSTAT Carbon Dioxide 28 mmol/L (24-31); iSTAT FiO2 35 %; iSTAT Hematocrit 40 % (42-52); iSTAT Hemoglobin 13.6 g/dl (14.0-18.0); iSTAT Potassium 4.2 mmol/L (3.3-5.0); iSTAT Site Art Line; iSTAT Sodium 135 mmol/L (135-144)
[2021-08-27] MEDS: levETIRAcetam 500 MG in 0.9 % SODIUM CHLORIDE 100 ML IV SCH (05:22)
[2021-08-27 06:00] LABS: BUN Creatinine Ratio 39.3 (10-20); Calcium 8.4 mg/dl (8.5-10.1); Creatinine Clr Calc Pharmacy 108.6 ml/min; Est GFR (African American) 113.2 ml/min; Est GFR (Non-African American) 97.7 ml/min; Phosphorus 2.8 mg/dl (2.5-4.9)
[2021-08-27 06:05] LABS: Basophils # (auto) 0.01 K/uL (0-0.2); Hematocrit (blood only) 36.8 % (42-52); Hemoglobin 12.8 g/dL (14.0-18.0); Immature Granulocytes # (auto) 0.08 K/uL (0.00-0.02); Immature Granulocytes % (auto) 0.3 %; Lymphocytes # (auto) 2.53 K/uL (1.2-3.4); Lymphocytes % (auto) 8.1 %; Mean Corpuscular Hemoglobin 30.7 pg (25-34); Mean Corpuscular Hgb Conc 34.8 g/dL (32-36); Mean Corpuscular Volume 88.2 fL (80-100); Mean Platelet Volume 10.8 fL (7.4-10.4); Monocytes # (auto) 0.02 K/uL (0.11-0.59); Monocytes % (auto) 0.1 %; Neutrophils # (auto) 28.77 K/uL (1.4-6.5); Neutrophils % (auto) 91.5 %; Platelet Count 283 K/uL (130-400); RBC Morphology Unremarkable; RDW Coefficient of Variation 13.6 % (11.5-14.5); RDW Standard Deviation 44.3 fL (36.4-46.3); Red Blood Count 4.17 M/uL (4.7-6.1); White Blood Count 31.41 K/uL (4.8-10.8)
[2021-08-27] MEDS: ICU ELECTROLYTE REPLACEMENT PROTOCOL SCH (06:27)
--- NOTE | 2021-08-27 07:47 | Hospitalist Progress Note ---
Date of Service August 27, 2021 Assessment & Plan (1) Cardiac arrest: Plan: Patient s/p arrest with on site CPR and recovered ROSC x2 shocks with arrival of EMS - Unknown down time- no reports of spontaneous movement or eye opening - taken to ballistics laboratory gunsmith - stenting done - terminal extubation after discussions with family in the am of 08/27/21, DNR/DNI (2) CAD (coronary artery disease): Plan: Multivessel disease with stenting to RCA, LAD, STEMI in 2001 and 2005 - stented RCA at admission (3) Ischemic cardiomyopathy: Plan: EF 30, this is decreased from previous on most current echo, global hypokinesis (4) COPD (chronic obstructive pulmonary disease): (5) Laceration of head: Plan: Following his collapse at home - approximated. (6) Dyslipidemia: (7) Diabetes: Plan: A1c 6.5, (8) Atrial fibrillation, permanent: Plan: rate controlled, pre hospital was chronically anticoagulated w pradaxa. (9) Hypertension, essential: Plan: terminal extubation is expected Admission and Anticipated Discharge Date Admission Date: August 23, 2021 Subjective pt had terminal extubation today, has had persistent hypoxia through the afternoon, appears comfortable family was present for extubation but went home Review of Systems Review of Systems: Unobtainable due to cognitive status Physical Exam Physical Exam: The patient appeared unresponsive without sedation Vital signs as documented. persistently hypoxic Lungs are coarse and tachypneic after extubation Cardiac exam, Rhythm is regular Neurologic exam is obtunded gcs 3 Skin is without bruises or rashes Results & Data Results & Data ([facility]) Vital Signs (Past 12 Hours) Vital Signs Temp Pulse Resp BP Pulse Ox 08/27/21 07:30 98.8 F 74 24 123/61 95 08/27/21 07:27 68 24 96 08/27/21 07:01 98.8 F 70 27 H 106/64 96 08/27/21 05:30 98.8 F 90 27 H 127/84 93 08/27/21 05:20 98.8 F 83 30 H 91 08/27/21 05:10 98.8 F 76 26 H 91 08/27/21 05:00 98.8 F 98 H 28 H 92 08/27/21 04:50 98.8 F 89 28 H 91 08/27/21 04:40 98.8 F 82 29 H 89 L 08/27/21 04:30 98.8 F 96 H 30 H 89 L 08/27/21 04:20 98.8 F 100 H 29 H 90 08/27/21 04:10 98.8 F 90 31 H 91 08/27/21 04:05 118 H 27 H 94 08/27/21 04:02 98.8 F 100 H 29 H 151/92 H 96 08/27/21 04:00 118 H 08/27/21 03:52 98.8 F 98 H 28 H 92 08/27/21 03:44 98.8 F 85 28 H 93 08/27/21 03:30 98.8 F 96 H 26 H 94 08/27/21 03:20 98.8 F 78 25 H 93 08/27/21 03:12 98.8 F 88 25 H 94 08/27/21 03:02 98.8 F 69 19 94 08/27/21 01:50 98.8 F 73 17 94 08/27/21 01:40 98.6 F 69 20 94 08/27/21 01:31 98.6 F 67 20 113/50 L 96 08/27/21 01:30 98.6 F 68 20 08/27/21 01:20 98.8 F 70 18 95 08/27/21 01:10 98.8 F 77 18 92 08/27/21 01:00 99.0 F 108 H 33 H 158/85 H 90 08/27/21 00:50 99.0 F 103 H 32 H 90 08/27/21 00:40 98.8 F 113 H 30 H 90 08/27/21 00:30 98.8 F 90 23 90 08/27/21 00:20 98.8 F 85 21 90 08/27/21 00:10 98.8 F 75 27 H 92 08/27/21 00:01 98.8 F 77 26 H 128/66 92 08/27/21 00:00 98.8 F 69 22 92 08/26/21 23:50 98.6 F 70 25 H 92 08/26/21 23:40 98.6 F 72 27 H 93 08/26/21 23:30 98.6 F 58 L 20 90 08/26/21 23:20 98.8 F 63 22 78/42 L 08/26/21 23:10 98.6 F 77 23 93 08/26/21 23:01 98.8 F 80 24 125/75 93 08/26/21 23:00 98.8 F 78 24 94 08/26/21 22:52 84 31 H 95 08/26/21 22:50 98.6 F 68 20 96 08/26/21 22:40 98.6 F 77 28 H 96 08/26/21 22:31 98.8 F 73 22 90/48 L 95 08/26/21 22:30 98.8 F 75 20 08/26/21 22:20 98.8 F 80 22 95 08/26/21 22:10 98.8 F 80 30 H 95 08/26/21 22:00 98.8 F 99 H 25 H 142/75 H 95 08/26/21 21:50 98.8 F 88 27 H 95 08/26/21 21:40 98.8 F 80 29 H 96 08/26/21 21:30 98.6 F 88 27 H 139/70 96 08/26/21 21:20 98.6 F 75 25 H 97 08/26/21 21:10 98.8 F 65 22 95 08/26/21 21:00 98.8 F 83 24 128/67 95 08/26/21 20:50 98.8 F 92 H 28 H 94 08/26/21 20:40 98.8 F 89 24 93 08/26/21 20:30 98.8 F 80 24 146/83 H 92 08/26/21 20:20 98.8 F 92 H 31 H 89 L 08/26/21 20:10 98.8 F 94 H 30 H 89 L 08/26/21 20:01 98.8 F 96 H 30 H 141/77 H 93 08/26/21 20:00 98.8 F 101 H 28 H 94 08/26/21 19:50 98.8 F 93 H 19 91 08/26/21 19:45 97 H 35 H 91 08/26/21 19:40 98.8 F 108 H 33 H 89 L 08/26/21 19:30 98.8 F 107 H 31 H 137/98 92 08/26/21 19:20 98.8 F 90 33 H 92 08/26/21 19:10 98.8 F 107 H 33 H 91 08/26/21 19:00 98.8 F 94 H 28 H 145/72 H 92 03/12/22 18:50 98.8 F 99 H 26 H 92 PG Care Time/CCT Total # of Minutes Spent Total Time Spent with Patient: Total time spent is greater than 50% in coordination of care (as documented) at patient's floor/unit and/or counseling patient: Coding Level of Care Code 64714 Subseq Hosp Care Lvl 2 Diagnoses Cardiac arrest I46.9 CAD (coronary artery disease) I25.10 Ischemic cardiomyopathy I25.5 COPD (chronic obstructive pulmonary disease) J44.9 Laceration of head S01.91XA Dyslipidemia E78.5 Diabetes E11.9 Atrial fibrillation, permanent I48.21 Hypertension, essential I10
[2021-08-27] MEDS: MAGNESIUM SULFATE / D5W 1 GM/100 ML BAG IV SCH ×2 (07:48→10:36)
[2021-08-27] MEDS: ASPIRIN 81 MG CHEW PO SCH (07:54)
[2021-08-27] MEDS: TICAGRELOR 90 MG TAB PO SCH (07:54)
[2021-08-27] MEDS: MULTI VIT W/MINERALS LIQUID 15 ML UDP NG SCH (07:54)
[2021-08-27] MEDS: BACITRACIN OINT 15 GM TUBE EXT SCH (07:54)
[2021-08-27] MEDS: ATORVASTATIN 40 MG TAB PO SCH (07:55)
[2021-08-27] MEDS: PANTOprazole 40 MG in SYRINGE 0 ML IV SCH (08:13)
--- NOTE | 2021-08-27 08:52 | Cardiology Progress Note ---
Date of Service August 27, 2021 Assessment & Plan (1) Cardiac arrest: (2) Recurrent ventricular tachycardia: (3) Stented coronary artery: (4) Ischemic cardiomyopathy: (5) Old inferior wall myocardial infarction: (6) CAD (coronary artery disease): (7) Atrial fibrillation, permanent: (8) AMS (altered mental status): Plan: As noted, patient transitioning to comfort care. No cardiac recommendations. Admission and Anticipated Discharge Date Admission Date: August 23, 2021 Subjective Patient remains unresponsive, mechanically ventilated, and on vasopressor support. Rhythm remains atrial fibrillation with controlled ventricular sponsor. No ventricular dysrhythmias. He will be transitioning to comfort care this morning. Physical Exam Physical Exam: Unresponsive, on mechanical ventilation and pressors. BP 123/61 mmHg (on pressors). Pulse 74 bpm and irregular. Skin: no ecchymoses or generalized lesions. HEENT: unremarkable. Neck: Jugular venous pulse not elevated, no obvious carotid bruits. Lungs: clear bilaterally (on ventilator) Cardiac: Irregular rhythm without obvious murmur. Abdomen: benign. Extremities: Somewhat cool, mildly delayed capillary refill, chronic stasis changes lower extremities with trace pretibial edema. Neurologic: Unresponsive, mechanically ventilated, no spontaneous movements. Results & Data ([facility]) Laboratory Results Sodium 133, otherwise normal electrolytes, BUN 24, creatinine 0.61. Diagnostic Findings Chest x-ray today does not show overt pulmonary edema or significant infiltrates. PG Care Time/CCT Total # of Minutes Spent Total Time Spent with Patient: Total time spent is greater than 50% in coordination of care (as documented) at patient's floor/unit and/or counseling patient: Coding Level of Care Code 63945 Subseq Hosp Care Lvl 2 Diagnoses Cardiac arrest I46.9 Stented coronary artery Z95.5 Ischemic cardiomyopathy I25.5 Old inferior wall myocardial infarction I25.2 CAD (coronary artery disease) I25.10 Atrial fibrillation, permanent I48.21 AMS (altered mental status) R41.82 Altered mental status type: unspecified Recurrent ventricular tachycardia I47.2 (1) AMS (altered mental status) Altered mental status type: unspecified Qualified Code(s): R41.82 - Altered mental status, unspecified
--- NOTE | 2021-08-27 09:14 | Electrocardiogram Report ---
Test Reason : Blood Pressure : / mmHG Vent. Rate : 056 BPM Atrial Rate : 057 BPM P-R Int : 000 ms QRS Dur : 168 ms QT Int : 536 ms P-R-T Axes : 000 252 004 degrees QTc Int : 517 ms Atrial fibrillation with slow ventricular response Right bundle branch block Old Inferior infarct Old Anterolateral infarct Abnormal ECG When compared with ECG of 24-AUG-2021 18:16, No significant change was found Confirmed by Baldemar Barney ([id number]) on 08/27/2021 9:13:53 AM Referred By: REFERRED SELF Confirmed By:Baldemar Barney
--- NOTE | 2021-08-27 09:25 | XRay Report ---
XR chest 1V portable HISTORY: Respiratory failure. Follow-up. COMPARISON: Chest 08/26/2021. FINDINGS: The endotracheal tube terminates 7 cm from the lorena. The nasogastric tube terminates in t he stomach. No pneumothorax. Trace bilateral pleural effusions. Progression of the interstitial/vascu lar thickening consistent with mild pulmonary edema. No new focal lung consolidations identified. Dominic cified right paratracheal/hilar lymph nodes are again noted. The heart remains mildly enlarged. IMPRESSION: 1. Interval development of mild interstitial pulmonary edema and trace bilateral pleural effusions. 2. Endotracheal tube terminates 7 cm from the lorena. This should be advanced by approximately 3 cm. ACT 112: Negative or not required by law. Electronically signed by: Osman Rodriguez M.D. 08/27/2021 9:24 AM
[2021-08-27] MEDS ORDERED: LORazepam 2 MG/1 ML VIAL IV PRN (10:21)
[2021-08-27] MEDS ORDERED: ONDANSETRON 4 MG OD TAB SL PRN (10:21)
[2021-08-27] MEDS ORDERED: MoRPHine SULFATE 2 MG/ML CARP IV PRN (10:21)
[2021-08-27] MEDS ORDERED: ONDANSETRON INJ 2 MG/ML 2 ML VIAL IV PRN (10:21)
[2021-08-27] MEDS ORDERED: STAT IV Infusion **Titration per Protocol STA (10:21)
[2021-08-27] MEDS ORDERED: LORazepam 0.5 MG TAB PO PRN (10:21)
--- NOTE | 2021-08-27 10:27 | Critical Care Progress Note ---
Date of Service August 27, 2021 Assessment & Plan (1) Cardiac arrest: Plan: Impression: 76-year-old male here with a PMHx significant for CAD who presented with uky-on-iykekive cardiac arrest, loss of consciousness after exertion who was admitted for cardiac arrest and subsequent anoxic brain injury.. 24-hour events: No significant improvement in the patient's overall neurological status. He remains dependent on vasopressor agents and the ventilator. His and family are at bedside and have decided to discontinue resuscitative efforts and transition to a comfort care measure as the patient has been quite clear in the past that he would not want trach, PEG, or to be maintained in a state where he was dependent on others for his quality of life. Recommendations: Neuro -patient completed 24 hours of therapeutic hypothermia. His neurological exam is unchanged. No evidence of continued seizure. Transitioning to comfort care measures. Will use as needed Ativan and morphine. Can extubate on Precedex. Cardiac -[id number] cardiac arrest status post PCI to the right coronary artery. He remains hemodynamically unstable and on pressor agents. Per family request, will discontinue pressors and transition to comfort care measures Respiratory -Per family request, discontinue mechanical ventilation and transition to supportive care measures. Morphine as needed for air hunger or dyspnea GI -discontinue tube feeds RENAL/LYTES -acid-base status and volume status acceptable. Kidney function appropriate. Will discontinue IV fluids. -Tabares catheter in place ENDO -glycemic management per pharmacy HEME -no current issues. ID -possible aspiration pneumonia: On antibiotics but these will be discontinued given the transition to comfort care measures LINES/IV ACCESS - -Femoral arterial line x1 on the right -Peripheral IV line x1 on the left wrist. DVT PROPHYLAXIS -SCDs Patient will be transitioning to palliative care/comfort care measures per family request. Met with family at bedside. Comfort care measures were ordered. Discussed with nursing at bedside. If it appears that this will be a prolonged process, the patient may be eligible to transfer upstairs to a private room to accommodate family. Total of 40 minutes critical care time including end-of-life issues managing care for this patient (2) Laceration of head: (3) CAD (coronary artery disease): (4) Ischemic cardiomyopathy: (5) COPD (chronic obstructive pulmonary disease): (6) Dyslipidemia: (7) Diabetes: (8) Atrial fibrillation, permanent: (9) Hypertension, essential: Admission and Anticipated Discharge Date Admission Date: August 23, 2021 Subjective Intubated, no significant change in neurological status Review of Systems Review of Systems: Unobtainable due to endotracheal tube Physical Exam Constitutional: WD/WN, vitals as above Neck: trachea midline, no thyromegaly Respiratory: normal respiratory effort, lungs clear to auscultation Cardiovascular: RRR, no murmur, no edema Gastrointestinal (Abdomen): normal bowel sounds, soft, nontender, no hepatosplenomegaly Musculoskeletal: Extremities: extremities normal to inspection Skin: no rashes, warm and dry Lymphatic: no cervical lymphadenopathy Results & Data Results & Data ([facility]) Vital Signs (Past 12 Hours) Vital Signs Temp Pulse Resp BP Pulse Ox 08/27/21 09:00 36.9 C 74 23 91 08/27/21 08:30 37.4 C 54 L 22 101/48 L 100 08/27/21 08:00 37.1 C 71 26 H 121/79 95 08/27/21 07:30 37.1 C 74 24 123/61 95 08/27/21 07:27 68 24 96 08/27/21 07:01 37.1 C 70 27 H 106/64 96 08/27/21 05:30 37.1 C 90 27 H 127/84 93 08/27/21 05:20 37.1 C 83 30 H 91 08/27/21 05:10 37.1 C 76 26 H 91 08/27/21 05:00 37.1 C 98 H 28 H 92 08/27/21 04:50 37.1 C 89 28 H 91 08/27/21 04:40 37.1 C 82 29 H 89 L 08/27/21 04:30 37.1 C 96 H 30 H 89 L 08/27/21 04:20 37.1 C 100 H 29 H 90 08/27/21 04:10 37.1 C 90 31 H 91 08/27/21 04:05 118 H 27 H 94 08/27/21 04:02 37.1 C 100 H 29 H 151/92 H 96 08/27/21 04:00 118 H 08/27/21 03:52 37.1 C 98 H 28 H 92 08/27/21 03:44 37.1 C 85 28 H 93 08/27/21 03:30 37.1 C 96 H 26 H 94 08/27/21 03:20 37.1 C 78 25 H 93 08/27/21 03:12 37.1 C 88 25 H 94 08/27/21 03:02 37.1 C 69 19 94 08/27/21 01:50 37.1 C 73 17 94 08/27/21 01:40 37.0 C 69 20 94 08/27/21 01:31 37.0 C 67 20 113/50 L 96 08/27/21 01:30 37.0 C 68 20 08/27/21 01:20 37.1 C 70 18 95 08/27/21 01:10 37.1 C 77 18 92 08/27/21 01:00 37.2 C 108 H 33 H 158/85 H 90 08/27/21 00:50 37.2 C 103 H 32 H 90 08/27/21 00:40 37.1 C 113 H 30 H 90 08/27/21 00:30 37.1 C 90 23 90 08/27/21 00:20 37.1 C 85 21 90 08/27/21 00:10 37.1 C 75 27 H 92 08/27/21 00:01 37.1 C 77 26 H 128/66 92 08/27/21 00:00 37.1 C 69 22 92 08/26/21 23:50 37.0 C 70 25 H 92 08/26/21 23:40 37.0 C 72 27 H 93 08/26/21 23:30 37.0 C 58 L 20 90 08/26/21 23:20 37.1 C 63 22 78/42 L 08/26/21 23:10 37.0 C 77 23 93 08/26/21 23:01 37.1 C 80 24 125/75 93 08/26/21 23:00 37.1 C 78 24 94 08/26/21 22:52 84 31 H 95 08/26/21 22:50 37.0 C 68 20 96 08/26/21 22:40 37.0 C 77 28 H 96 08/26/21 22:31 37.1 C 73 22 90/48 L 95 08/26/21 22:30 37.1 C 75 20 08/26/21 22:20 37.1 C 80 22 95 08/26/21 22:10 37.1 C 80 30 H 95 08/26/21 22:00 37.1 C 99 H 25 H 142/75 H 95 08/26/21 21:50 37.1 C 88 27 H 95 08/26/21 21:40 37.1 C 80 29 H 96 08/26/21 21:30 37.0 C 88 27 H 139/70 96 Critical Care Results & Data Vital Signs (Past 12 Hours) Vital Signs Temp Pulse Resp BP Pulse Ox 08/27/21 09:00 36.9 C 74 23 91 08/27/21 08:30 37.4 C 54 L 22 101/48 L 100 08/27/21 08:00 37.1 C 71 26 H 121/79 95 08/27/21 07:30 37.1 C 74 24 123/61 95 08/27/21 07:27 68 24 96 08/27/21 07:01 37.1 C 70 27 H 106/64 96 08/27/21 05:30 37.1 C 90 27 H 127/84 93 08/27/21 05:20 37.1 C 83 30 H 91 08/27/21 05:10 37.1 C 76 26 H 91 08/27/21 05:00 37.1 C 98 H 28 H 92 08/27/21 04:50 37.1 C 89 28 H 91 08/27/21 04:40 37.1 C 82 29 H 89 L 08/27/21 04:30 37.1 C 96 H 30 H 89 L 08/27/21 04:20 37.1 C 100 H 29 H 90 08/27/21 04:10 37.1 C 90 31 H 91 08/27/21 04:05 118 H 27 H 94 08/27/21 04:02 37.1 C 100 H 29 H 151/92 H 96 08/27/21 04:00 118 H 08/27/21 03:52 37.1 C 98 H 28 H 92 08/27/21 03:44 37.1 C 85 28 H 93 08/27/21 03:30 37.1 C 96 H 26 H 94 08/27/21 03:20 37.1 C 78 25 H 93 08/27/21 03:12 37.1 C 88 25 H 94 08/27/21 03:02 37.1 C 69 19 94 08/27/21 01:50 37.1 C 73 17 94 08/27/21 01:40 37.0 C 69 20 94 08/27/21 01:31 37.0 C 67 20 113/50 L 96 08/27/21 01:30 37.0 C 68 20 08/27/21 01:20 37.1 C 70 18 95 08/27/21 01:10 37.1 C 77 18 92 08/27/21 01:00 37.2 C 108 H 33 H 158/85 H 90 08/27/21 00:50 37.2 C 103 H 32 H 90 08/27/21 00:40 37.1 C 113 H 30 H 90 08/27/21 00:30 37.1 C 90 23 90 08/27/21 00:20 37.1 C 85 21 90 08/27/21 00:10 37.1 C 75 27 H 92 08/27/21 00:01 37.1 C 77 26 H 128/66 92 08/27/21 00:00 37.1 C 69 22 92 08/26/21 23:50 37.0 C 70 25 H 92 08/26/21 23:40 37.0 C 72 27 H 93 08/26/21 23:30 37.0 C 58 L 20 90 08/26/21 23:20 37.1 C 63 22 78/42 L 08/26/21 23:10 37.0 C 77 23 93 08/26/21 23:01 37.1 C 80 24 125/75 93 08/26/21 23:00 37.1 C 78 24 94 08/26/21 22:52 84 31 H 95 08/26/21 22:50 37.0 C 68 20 96 08/26/21 22:40 37.0 C 77 28 H 96 08/26/21 22:31 37.1 C 73 22 90/48 L 95 08/26/21 22:30 37.1 C 75 20 08/26/21 22:20 37.1 C 80 22 95 08/26/21 22:10 37.1 C 80 30 H 95 08/26/21 22:00 37.1 C 99 H 25 H 142/75 H 95 08/26/21 21:50 37.1 C 88 27 H 95 08/26/21 21:40 37.1 C 80 29 H 96 08/26/21 21:30 37.0 C 88 27 H 139/70 96 Lab & Micro Results (Past 24 Hours) RBC 4.17 M/uL (4.7-6.1) L 08/27/21 WBC 31.41 K/uL (4.8-10.8) H* 08/27/21 Hgb 12.8 g/dL (14.0-18.0) L 08/27/21 Hct 36.8 % (42-52) L 08/27/21 MCV 88.2 fL (80-100) 08/27/21 MCH 30.7 pg (25-34) 08/27/21 MCHC 34.8 g/dL (32-36) 08/27/21 RDW Standard Deviation 44.3 fL (36.4-46.3) 08/27/21 RDW Coefficient of Variation 13.6 % (11.5-14.5) 08/27/21 Plt Count 283 K/uL (130-400) 08/27/21 MPV 10.8 fL (7.4-10.4) H 08/27/21 Neutrophils (%) (Auto) 91.5 % 08/27/21 Lymphocytes (%) (Auto) 8.1 % 08/27/21 Monocytes # (Auto) 0.02 K/uL (0.11-0.59) L 08/27/21 Eosinophils # (Auto) 0.00 K/uL (0-0.5) 08/27/21 Immature Granulocyte % (Auto) 0.3 % 08/27/21 Neutrophils # (Auto) 28.77 K/uL (1.4-6.5) H 08/27/21 Lymphocytes # (Auto) 2.53 K/uL (1.2-3.4) 08/27/21 Monocytes # (Auto) 0.02 K/uL (0.11-0.59) L 08/27/21 Eosinophils # (Auto) 0.00 K/uL (0-0.5) 08/27/21 Basophils # (Auto) 0.01 K/uL (0-0.2) 08/27/21 Immature Granulocyte # (Auto) 0.08 K/uL (0.00-0.02) H 08/27/21 Red Blood Cell Morphology Unremarkable 08/27/21 Na 133 mmol/L (136-145) L 08/27/21 K 4.0 mmol/L (3.5-5.1) 08/27/21 Cl 100 mmol/L (98-107) 08/27/21 CO2 25 mmol/L (21-32) 08/27/21 Anion Gap 8 (3-11) 08/27/21 BUN 24 mg/dl (6-23) H 08/27/21 Creatinine 0.61 mg/dl (0.6-1.4) 08/27/21 Estimated GFR ( Amer) 113.2 ml/min 08/27/21 Estimated GFR (Non-Af Amer) 97.7 ml/min 08/27/21 BUN/Creatinine Ratio 39.3 (10-20) H 08/27/21 Glu 92 mg/dl (70-99(Fasting)) 08/27/21 Ca 8.4 mg/dl (8.5-10.1) L 08/27/21 Phosphorus Level 2.8 mg/dl (2.5-4.9) 08/27/21 Mg 2.0 mg/dl (1.7-2.4) 08/27/21 05:22 08/27/21 Calcium Level 8.4 mg/dl (8.5-10.1) L 08/27/21 05:22 08/27/21 Horace Test NA 08/27/21 03:16 08/27/21 Microbiology 08/25/21 Unknown Gram Stain - Final Sputum,Vent Suction Sputum Culture - Preliminary Klebsiella pneumoniae Group B Beta Strep Diagnostic Findings (Past 24 Hours) Chest X-Ray 08/27/21 07:00 XR chest 1V portable HISTORY: Respiratory failure. Follow-up. COMPARISON: Chest 08/26/2021. FINDINGS: The endotracheal tube terminates 7 cm from the lorena. The nasogastric tube terminates in the stomach. No pneumothorax. Trace bilateral pleural effusions. Progression of the interstitial/vascular thickening consistent with mild pulmonary edema. No new focal lung consolidations identified. Calcified right paratracheal/hilar lymph nodes are again noted. The heart remains mildly enlarged. IMPRESSION: 1. Interval development of mild interstitial pulmonary edema and trace bilateral pleural effusions. 2. Endotracheal tube terminates 7 cm from the lorena. This should be advanced by approximately 3 cm. ACT 112: Negative or not required by law. Electronically signed by: Osman Rodriguez M.D. 08/27/2021 9:24 AM I & O Totals 24 Hours 08/26/21 08/27/21 08/28/21 05:59 06:59 06:59 Intake Total 164.705 / 164.705 Output Total Balance 164.705 / 164.705 Cumulative 08/23/21 15:57 thru 08/27/21 08:12 Intake Total 9349.785 Output Total 4981 Balance 4368.785 RT Ventilator Mngmt (Last Documented) Ventilator Ordered Settings Ventilator Support Mode Assist Control 08/27/21 08:00 Respiratory Rate 23 08/27/21 09:00 Ventilator Tidal Volume 500 08/27/21 08:00 Setting Minute Ventilation 11.6 08/27/21 07:27 Positive End Expiratory 5 08/27/21 08:00 Pressure Fraction of Inspired Oxygen 35 08/27/21 08:00 Peak Inspiratory Flow 50 08/26/21 15:05 Machine Comment titrated FiO2 to 30% post ABG 08/24/21 20:00 Ventilator - PT Measurements Respiratory Rate 23 Exhaled Tidal Volume 510 Minute Ventilation 11.6 Peak Inspiratory Airway 26 Pressure Plateau Pressure 22 Respiratory Cycle Inspiratory: 1:2.5 Expiratory Ratio Inspiratory Phase Time 0.80 End-Tidal CO2 28 Static Lung Compliance 30.00 Dynamic Lung Compliance 24.29 Normal Static Lung Compliance 46.00 Patient Measurements Comment FiO2 decreased to 35%. Coding Level of Care Code Critical Care 1st 30-74 mins Diagnoses Cardiac arrest I46.9 Laceration of head S01.91XA CAD (coronary artery disease) I25.10 Ischemic cardiomyopathy I25.5 COPD (chronic obstructive pulmonary disease) J44.9 Dyslipidemia E78.5 Diabetes E11.9 Atrial fibrillation, permanent I48.21 Hypertension, essential I10 Time Spent (min) 40
[2021-08-27] MEDS ORDERED: MoRPHine SULF/NSS 250 MG/250 ML BTL IV SCH (10:30)
[2021-08-27] MEDS: GLYCOPYRROLATE 0.2 MG/ML VIAL IV PRN ×2 (11:11→15:58)
[2021-08-27] MEDS: LORazepam 2 MG/1 ML VIAL IV PRN ×2 (12:00→16:13)
--- NOTE | 2021-08-28 02:09 | Death Pronouncement Note ---
Date of Service August 28, 2021 Pronouncement Note Admission Date Admission Date: August 23, 2021 Date and Time of Date of : 08/28/21 Time of : 01:50 PCOD Preliminary cause of : Cardiac arrest due to underlying cardiac condition Contributing Factors (1) CAD (coronary artery disease): (2) Ischemic cardiomyopathy: (3) COPD (chronic obstructive pulmonary disease): (4) Laceration of head: (5) Dyslipidemia: (6) Diabetes: (7) Atrial fibrillation, permanent: (8) Hypertension, essential: Summary Additional details: I was contacted by nursing staff regarding the patients declining status and concerns for imminent demise. In short, patient had a cardiac arrest while shoveling snow in which ROSC was achieved after 20 minutes. Patient underwent therapeutic hypothermia but had sustained significant anoxic injury. He was made comfort measures on 08/27 and became bradycardic this morning, and converted to asystole. Assessment: I presented to the patients room for evaluation. Upon assessment, the patient was found to be in a terminal state. Pupils were fixed and dilated without response. No palpable pulses appreciated. No spontaneous breaths noted. Heart sounds were absent. No response to painful stimuli. Time of : 0150 as pronounced by myself. I spoke with the patient's over the phone and informed her that her , Rigo, had . Condolences provided. Questions were addressed and emotional support was provided. Patients primary service was contacted and made aware of patient demise. Please feel free to contact me with any questions regarding the above-mentioned course. Additional Data Attending physician: Louie Barajas MD Coding Level of Care Code None Diagnoses CAD (coronary artery disease) I25.10 Ischemic cardiomyopathy I25.5 COPD (chronic obstructive pulmonary disease) J44.9 Laceration of head S01.91XA Dyslipidemia E78.5 Diabetes E11.9 Atrial fibrillation, permanent I48.21 Hypertension, essential I10
--- NOTE | 2021-08-28 09:10 | Discharge Summary ---
Date of Service August 28, 2021 Admission HPI Per Admitting Provider 76 YOM with past medical history of: COPD, CAD, Afib (on Dabigatran), ICM with HFrEF (EF 40-45% 07/08), CAD, Mitral Regurge, HLD, GERD, FE deficient anemia, bare metal stents to RCA and LAD (2001), STEMI 2006- stents to LAD DX and proximal RCA, DM II. Patient brought to the EMD today following collapse at home with striking the back of his head. Reports that started CPR on seen and EMS was activated. He received 2 defibrillations, was intubated, and required some (2 times) push dose epinephrine en route. states that he was outside using the snowblower and she seen him turn the snowblower and then c abdullahi. She went over to him and noted that he had agonal respirations and was unresponsive and dusky in color. She removed his dentures and started CPR for what she felt was 5 minutes and then went in to get her cell phone. She called 911 and went back to doing CPR until EMS showed up. She confirms that he got 2 shocks for what was reported as V-Tach. She did not see him awaken following th is or move any of his extremities and no other response other than agonal breathing. He arrived in the EMD where evaluation was performed by EMD and cardiac cath lab manager was notified. He had CXR performed and CT scan of cervical spine and head performed. Patient is en route to lab director. Patient follows with Dr. Quintero for cardiology. Following Cardiac intervention/evaluation patient to ICU. He remains with laceration to back of his head that will need primary closure and cleansing. Principal Diagnosis cause of is anoxic brain injury secondary to cardiac arrest time of is 0150 hours 08/28/21 Discharge Exam pt was pronounced by night traffic division commanding officer provider Discharge Data Allergies Allergy/AdvReac Type Severity Reaction Status Date / Time moxifloxacin Allergy Intermediate Rash Verified 07/27/21 14:02 Iodinated Contrast Media Allergy Unknown RASH Verified 07/27/21 14:02 meloxicam Allergy Unknown interacts Verified 07/27/21 14:02 with glucose readings and Lasix simvastatin Allergy Unknown rash Verified 08/23/21 17:04 spironolactone Allergy Unknown RASH Verified 07/27/21 14:02 niacin AdvReac Unknown red flush Verified 07/27/21 14:02 Consultations 03/09/22 17:02 ED Decision to Admit Stat 08/23/21 17:55 Consult Internal Medicine Routine 08/23/21 19:34 Consult Cardiology Routine Consult Growth Media Mixer Mushroom Routine Procedures Performed Operation Date: 08/23/21 16:30 Actual Procedures s Cineradiography w/Routine Exam - Ayo Villarreal MD, PhD p Cath, Coronaries ONLY (no LV) - Ayo Villarreal MD, PhD s Drug Eluting Stent SGl Vessel - Ayo Villarreal MD, PhD s Ultrasound Vascular Access - Ayo Villarreal MD, PhD s Central Venous Cath Placement - Ayo Villarreal MD, PhD s Placement Art Occlusive Device - Ayo Villarreal MD, PhD Ordered Studies 08/23/21 16:09 CL Cath Imgs for PACS use only Stat 08/23/21 16:22 CT cervical spine wo con Stat CT head/brain wo con Stat Hospital Course (1) : pt pronounced at 0150 on 08/28/21 secondary to anoxic brain injury from cardiac arrest the remainder below is from earlier this hospital stay (2) Cardiac arrest: Patient s/p arrest with on site CPR and recovered ROSC x2 shocks with arrival of EMS - Unknown down time- no reports of spontaneous movement or eye opening - taken to lab director - stenting done - terminal extubation after discussions with family in the am of 08/27/21, DNR/DNI (3) CAD (coronary artery disease): Multivessel disease with stenting to RCA, LAD, STEMI in 2001 and 2005 - stented RCA at admission (4) Ischemic cardiomyopathy: EF 30, this is decreased from previous on most current echo, global hypokinesis (5) COPD (chronic obstructive pulmonary disease): (6) Laceration of head: Following his collapse at home - approximated. (7) Dyslipidemia: (8) Diabetes: A1c 6.5, (9) Atrial fibrillation, permanent: rate controlled, pre hospital was chronically anticoagulated w pradaxa. (10) Hypertension, essential: terminal extubation is expected Total Time Total Time Spent Total Time Spent (In Minutes): less than 30 minutes were required to complete this summary and certificate Discharge Plan Discharge Items Patient Disposition: Other Date/Time: 08/28/21 01:50 Interventions: Discharge Summary Assessment (RN) Last Done: 08/28/21 02:37 Coding Level of Care Code D/C DAY MANAGEMENT <30 MINS Diagnoses Cardiac arrest I46.9 CAD (coronary artery disease) I25.10 Ischemic cardiomyopathy I25.5 COPD (chronic obstructive pulmonary disease) J44.9 Laceration of head S01.91XA Dyslipidemia E78.5 Diabetes E11.9 Atrial fibrillation, permanent I48.21 Hypertension, essential I10 R99
== END 2021-08-28 01:50 | disposition expired | DRG 246 ==
LOC: ED 16:13 → CC 16:40 → SUATTDRO 16:49 → 1E 16:49
PROC: CLB.CCO (2021-08-23 16:30)